=== PATIENT | female | born 1990 | race Caucasian/White ===

== ENCOUNTER 2016-08-10 12:58 | Emergency (ER) | payer OTHER ==
[~2016-08-10 12:58] MED LIST: ACET50TA PO; DOCU10CA PO; IBUP80TA PO; VITAPRTA PO
--- NOTE | 2016-08-10 14:29 | EDDOCDS ---
Nurse's Notes [facility] Name: Leslie Savage Age: 25 yrs Sex: Female : 1990 Arrival Date: 08/10/2016 Time: 12:58 Bed PR1 / 25 Private MD: Harman Beckford Diagnosis: Acute upper respiratory infection, unspecified Presentation: 08/10 13:05 Presenting complaint: Patient states: states sore throat and cough x 3 weeks. Risk ml6 factors: Stridor is not present. Drooling is not present. Shortness of breath is not present. Cellulitis is not present. Adult Sepsis Screening: The patient does not have new or worsening altered mentation. Patient's respiratory rate is less than 22. Systolic blood pressure is greater than 100. Patient has a qSOFA score of 0- Negative Sepsis Screen. Suicide/Homicide risk assessment- the patient denies having any suicidal and/or homicidal ideations and does not present with any other emotional, behavioral or mental health complaints. Status: Patient is not a director of rehabilitative services or dependent. Transition of care: patient was not received from another setting of care. 13:05 Acuity: ALONSO Level 5 ml6 13:05 Method Of Arrival: Walkin/Carried/Asstd ml6 Triage Assessment: 13:06 General: Appears in no apparent distress, Behavior is appropriate for age, cooperative. ml6 Pain: Location: neck Pain currently is 4 out of 10 on a pain scale. HIV screening NA for this visit Offered previously. EENT: Throat is reddened has enlarged tonsils bilaterally with gag reflex present. Cardiovascular: No deficits noted. 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 trazodone 150 mg Oral tab HS (Last dose: 08/09/2016 20:00) 2. naproxen sodium 375 mg Oral TM24 2 tabs once daily (Last dose: 08/10/2016 08:00) 3. Ventolin Rotahaler/Rotacaps 200 mcg Inhl CpDv 200 mcg daily (Last dose: 08/10/2016 08:00) - PMHx: Anxiety; Asthma; Depression; lower back pain; - PSHx: none; - Social history: Smoking status: Patient uses tobacco products, heavy tobacco smoker. No barriers to communication noted, Speaks appropriately for age. - Family history: Not pertinent. - : The pt / caregiver states he / she is not on anticoagulants. Home medication list is obtained from the patient. - Exposure Risk Screening:: None identified. Screenin:27 Screening information is obtained from the patient. Fall risk: No risks identified. js13 Assistance ADL's: requires no assistance with activities of daily living. Abuse/DV Screen: The patient / caregiver reports he/she is: not in a situation that causes fear, pain or injury. Nutritional screening: No deficits noted. Advance Directives: There is no active DNR order. home support is adequate. Assessment: 14:22 General: Appears in no apparent distress, Behavior is appropriate for age, cooperative. js13 Pain: Denies pain. Neurological: Level of Consciousness is awake, alert. Respiratory: Airway is patent Respiratory effort is even, unlabored, Respiratory pattern is regular, symmetrical. Derm: Skin is pink, warm & dry. Vital Signs: 13:00 BP 136 / 79; Pulse 101; Resp 18 S; Temp 97.8(O); Pulse Ox 97% on R/A; Weight 127.01 kg gr2 (R); Height 5 ft. 6 in. (167.64 cm) (R); Pain 8/10; 14:26 BP 178 / 89; Pulse 107; Resp 20; Temp 98.2; Pulse Ox 99% ; Pain 8/10; jam1 13:00 Body Mass Index 45.19 (127.01 kg, 167.64 cm) gr2 Vitals: 13:00 Log In Time: August 10, 2016 at 13:00. gr2 13:26 Strep Screen is obtained and tested: Negative, a GATSNEG culture is ordered in [facility] js13 and sent. ED Course: 12:59 Patient visited by Marleny Crouch. gr2 12:59 Patient moved to Waiting gr2 13:00 Harman Beckford is Private Physician. gr2 13:02 Patient visited by Marleny Crouch. gr2 13:02 Patient moved to Pre RCE gr2 13:05 Triage Initiated ml6 13:22 Patient moved to Triage 1 js13 13:27 The patient / caregiver is instructed regarding the plan of care and ED course. js13 13:27 No IV's were initiated during this patient's visit. No procedures done that require js13 assistance. 13:29 [facility]. dt4 13:29 Ti Aguilera MD is Attending Physician. dt4 13:29 Patient visited by Shanita Hernandez PA-C. dt4 13:29 GATS (NEGATIVE STREP SCREEN) Sent. js13 13:43 Patient moved to TR1 jam1 14:22 Patient moved to PR1 / 25 jam1 Order Results: There are currently no results for this order. Outcome: 14:18 Discharge ordered by Provider. dt4 14:22 Discharge Assessment: Patient awake, alert and oriented x 3. No cognitive and/or js13 functional deficits noted. Patient verbalized understanding of disposition instructions. patient administered narcotics - no. The following High Risk Discharge criteria are identified: None. Discharged to home ambulatory. Condition: improved. Discharge instructions given to patient, Instructed on discharge instructions, follow up and referral plans. medication usage, Demonstrated understanding of instructions, medications, Pt was receptive of discharge instructions/ teaching. No special radiology studies were completed. Property :Personal belongings accompany Pt. 14:23 Prescriptions given X 2. js13 14:29 Patient left the ED. js13 Signatures: Janet Robbins, HYDROBLASTER HYDROBLASTER jam1 Ketan Rubio, RN RN ml6 Amada JoynerRN RN js13 Marleny Crouch gr2 Shanita Hernandez PA-C PA-C dt4 [facility]
--- NOTE | 2016-08-10 14:29 | EDDOCDS ---
Physician Documentation [facility] Name: Leslie Savage Age: 25 yrs Sex: Female : 1990 Arrival Date: 08/10/2016 Time: 12:58 Bed PR1 / Private MD: Harman Beckford Disposition: 08/10/16 14:18 Discharged to Home/Self Care. Impression: Acute upper respiratory infection, unspecified. - Condition is Stable. - Discharge Instructions: Upper Respiratory Infection, Adult, Cough, Adult. - Prescriptions for Zithromax Z- Ti 250 mg Oral Tablet - take 1 tablet by ORAL route as directed for 5 days Day 1- take two tablets once. Day 2, 3, 4 , 5 take one tablet once daily.; 6 tablet. benzonatate 200 mg Oral Capsule - take 1 capsule by ORAL route 3 times per day As needed; 30 capsule. magic mouthwash Mucous Membrane Solution - as directed 5 milliliters by ORAL route 3-4 times daily As needed gargle, swish, spit. Maalox, Liquid Benadryl, Viscous Lidocaine. 1:1:1; 237 milliliter. - Medication Reconciliation, Local Pharmacy Hours form. - Follow up: Emergency Department; When: As needed; Reason: Worsening of conditions. Follow up: Private Physician; When: 2 - 3 days; Reason: Wound/Symptom Recheck, Recheck today's complaints, Continuance of care. - Problem is new. - Symptoms are unchanged. Historical: - Allergies: PENICILLINS (Rash); - Home Meds: 1. trazodone 150 mg Oral tab HS (Last dose: 08/09/2016 20:00) 2. naproxen sodium 375 mg Oral TM24 2 tabs once daily (Last dose: 08/10/2016 08:00) 3. Ventolin Rotahaler/Rotacaps 200 mcg Inhl CpDv 200 mcg daily (Last dose: 08/10/2016 08:00) - PMHx: Anxiety; Asthma; Depression; lower back pain; - PSHx: none; - Social history: Smoking status: Patient uses tobacco products, heavy tobacco smoker. No barriers to communication noted, Speaks appropriately for age. - Family history: Not pertinent. - : The pt / caregiver states he / she is not on anticoagulants. Home medication list is obtained from the patient. - Exposure Risk Screening:: None identified. 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 6 in. (167.64 cm) (R); Pain 8/10; 14:26 BP 178 / 89; Pulse 107; Resp 20; Temp 98.2; Pulse Ox 99% ; Pain 8/10; jam1 13:00 Body Mass Index 45.19 (127.01 kg, 167.64 cm) gr2 MDM: 13:03 Strep Screen, Nursing ordered. dt4 13:27 GATS (NEGATIVE STREP SCREEN) Ordered. EDMS 13:42 Chest, 2 View (pa\E\lat) Ordered. EDMS 13:47 Financial registration complete. lg Signatures: Dispatcher [employer] EDMS Shannon Hernandez, Reg Reg lg Ketan Rubio, RN RN ml6 Amada Joyner,RN RN js13 Shanita Hernandez, PAJenniferC PA-C dt4 [facility]
--- NOTE | 2016-08-10 15:50 | REP ---
Chest x-ray: Two views. History: Cough. Comparison chest x-ray April 08, 2013. Findings: The lungs are symmetrically aerated and clear. Pleural angles are sharp. Heart size is normal. Pulmonary vasculature is not increased. Intraoral jewelry is noted incidentally. Impression: No active disease. Signed by Eros Khoury MD 08/10/2016 04:03 P
--- NOTE | 2016-08-12 15:29 | EDDOCDS ---
Physician Documentation [facility] Name: Leslie Savage Age: 25 yrs Sex: Female : 1990 Arrival Date: 08/10/2016 Time: 12:58 Bed PR1 / Private MD: Harman Beckford Disposition: 08/10/16 14:18 Discharged to Home/Self Care. Impression: Acute upper respiratory infection, unspecified. - Condition is Stable. - Discharge Instructions: Upper Respiratory Infection, Adult, Cough, Adult. - Prescriptions for Zithromax Z- Ti 250 mg Oral Tablet - take 1 tablet by ORAL route as directed for 5 days Day 1- take two tablets once. Day 2, 3, 4 , 5 take one tablet once daily.; 6 tablet. benzonatate 200 mg Oral Capsule - take 1 capsule by ORAL route 3 times per day As needed; 30 capsule. magic mouthwash Mucous Membrane Solution - as directed 5 milliliters by ORAL route 3-4 times daily As needed gargle, swish, spit. Maalox, Liquid Benadryl, Viscous Lidocaine. 1:1:1; 237 milliliter. - Medication Reconciliation, Local Pharmacy Hours form. - Follow up: Emergency Department; When: As needed; Reason: Worsening of conditions. Follow up: Private Physician; When: 2 - 3 days; Reason: Wound/Symptom Recheck, Recheck today's complaints, Continuance of care. - Problem is new. - Symptoms are unchanged. Historical: - Allergies: PENICILLINS (Rash); - Home Meds: 1. trazodone 150 mg Oral tab HS (Last dose: 08/09/2016 20:00) 2. naproxen sodium 375 mg Oral TM24 2 tabs once daily (Last dose: 08/10/2016 08:00) 3. Ventolin Rotahaler/Rotacaps 200 mcg Inhl CpDv 200 mcg daily (Last dose: 08/10/2016 08:00) - PMHx: Anxiety; Asthma; Depression; lower back pain; - PSHx: none; - Social history: Smoking status: Patient uses tobacco products, heavy tobacco smoker. No barriers to communication noted, Speaks appropriately for age. - Family history: Not pertinent. - : The pt / caregiver states he / she is not on anticoagulants. Home medication list is obtained from the patient. - Exposure Risk Screening:: None identified. 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 6 in. (167.64 cm) (R); Pain 8/10; 14:26 BP 178 / 89; Pulse 107; Resp 20; Temp 98.2; Pulse Ox 99% ; Pain 8/10; jam1 13:00 Body Mass Index 45.19 (127.01 kg, 167.64 cm) gr2 MDM: 13:03 Strep Screen, Nursing ordered. dt4 13:27 GATS (NEGATIVE STREP SCREEN) Ordered. EDMS 13:42 Chest, 2 View (pa\E\lat) Ordered. EDMS 13:47 Financial registration complete. lg 14:41 [facility] Payment Agreement was scanned into [employer] and attached to record. lg 22:02 T-Sheet-- Draft Copy was scanned into [employer] and attached to record. klr Signatures: Dispatcher [employer] EDMS Shannon Hernandez, Reg Reg lg Ketan Rubio, RN RN ml6 Amada Joyner,RN RN js13 Shanita Hernandez, PA-C PA-C dt4 Hali Carmen klr The chart was reviewed and I authenticate all verbal orders and agree with the evaluation and treatment provided.Attachments: 14:41 [facility] Payment Agreement lg 22:02 T-Sheet-- Draft Copy klr Chart Complete MTDD
--- NOTE | 2016-08-12 15:30 | EDDOCDS ---
Physician Documentation [facility] Name: Leslie Savage Age: 25 yrs Sex: Female : 1990 Arrival Date: 08/10/2016 Time: 12:58 Bed PR1 / Private MD: Harman Beckford Disposition: 08/10/16 14:18 Discharged to Home/Self Care. Impression: Acute upper respiratory infection, unspecified. - Condition is Stable. - Discharge Instructions: Upper Respiratory Infection, Adult, Cough, Adult. - Prescriptions for Zithromax Z- Ti 250 mg Oral Tablet - take 1 tablet by ORAL route as directed for 5 days Day 1- take two tablets once. Day 2, 3, 4 , 5 take one tablet once daily.; 6 tablet. benzonatate 200 mg Oral Capsule - take 1 capsule by ORAL route 3 times per day As needed; 30 capsule. magic mouthwash Mucous Membrane Solution - as directed 5 milliliters by ORAL route 3-4 times daily As needed gargle, swish, spit. Maalox, Liquid Benadryl, Viscous Lidocaine. 1:1:1; 237 milliliter. - Medication Reconciliation, Local Pharmacy Hours form. - Follow up: Emergency Department; When: As needed; Reason: Worsening of conditions. Follow up: Private Physician; When: 2 - 3 days; Reason: Wound/Symptom Recheck, Recheck today's complaints, Continuance of care. - Problem is new. - Symptoms are unchanged. Historical: - Allergies: PENICILLINS (Rash); - Home Meds: 1. trazodone 150 mg Oral tab HS (Last dose: 08/09/2016 20:00) 2. naproxen sodium 375 mg Oral TM24 2 tabs once daily (Last dose: 08/10/2016 08:00) 3. Ventolin Rotahaler/Rotacaps 200 mcg Inhl CpDv 200 mcg daily (Last dose: 08/10/2016 08:00) - PMHx: Anxiety; Asthma; Depression; lower back pain; - PSHx: none; - Social history: Smoking status: Patient uses tobacco products, heavy tobacco smoker. No barriers to communication noted, Speaks appropriately for age. - Family history: Not pertinent. - : The pt / caregiver states he / she is not on anticoagulants. Home medication list is obtained from the patient. - Exposure Risk Screening:: None identified. 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 6 in. (167.64 cm) (R); Pain 8/10; 14:26 BP 178 / 89; Pulse 107; Resp 20; Temp 98.2; Pulse Ox 99% ; Pain 8/10; jam1 13:00 Body Mass Index 45.19 (127.01 kg, 167.64 cm) gr2 MDM: 13:03 Strep Screen, Nursing ordered. dt4 13:27 GATS (NEGATIVE STREP SCREEN) Ordered. EDMS 13:42 Chest, 2 View (pa\E\lat) Ordered. EDMS 13:47 Financial registration complete. lg 14:41 [facility] Payment Agreement was scanned into [employer] and attached to record. lg 22:02 T-Sheet-- Draft Copy was scanned into [employer] and attached to record. klr Signatures: Dispatcher [employer] EDMS Shannon Hernandez, Reg Reg lg Ketan Rubio, RN RN ml6 Amada Joyner,RN RN js13 Shanita Hernandez, PA-C PA-C dt4 Hali Carmen klr The chart was reviewed and I authenticate all verbal orders and agree with the evaluation and treatment provided.Attachments: 14:41 [facility] Payment Agreement lg 22:02 T-Sheet-- Draft Copy klr Chart Complete MTDD
--- NOTE | 2016-08-12 15:30 | EDDOCDS ---
Nurse's Notes [facility] Name: Leslie Savage Age: 25 yrs Sex: Female : 1990 Arrival Date: 08/10/2016 Time: 12:58 Bed PR1 / 25 Private MD: Harman Beckford Diagnosis: Acute upper respiratory infection, unspecified Presentation: 08/10 13:05 Presenting complaint: Patient states: states sore throat and cough x 3 weeks. Risk ml6 factors: Stridor is not present. Drooling is not present. Shortness of breath is not present. Cellulitis is not present. Adult Sepsis Screening: The patient does not have new or worsening altered mentation. Patient's respiratory rate is less than 22. Systolic blood pressure is greater than 100. Patient has a qSOFA score of 0- Negative Sepsis Screen. Suicide/Homicide risk assessment- the patient denies having any suicidal and/or homicidal ideations and does not present with any other emotional, behavioral or mental health complaints. Status: Patient is not a financial services technician or dependent. Transition of care: patient was not received from another setting of care. 13:05 Acuity: ALONSO Level 5 ml6 13:05 Method Of Arrival: Walkin/Carried/Asstd ml6 Triage Assessment: 13:06 General: Appears in no apparent distress, Behavior is appropriate for age, cooperative. ml6 Pain: Location: neck Pain currently is 4 out of 10 on a pain scale. HIV screening NA for this visit Offered previously. EENT: Throat is reddened has enlarged tonsils bilaterally with gag reflex present. Cardiovascular: No deficits noted. 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 trazodone 150 mg Oral tab HS (Last dose: 08/09/2016 20:00) 2. naproxen sodium 375 mg Oral TM24 2 tabs once daily (Last dose: 08/10/2016 08:00) 3. Ventolin Rotahaler/Rotacaps 200 mcg Inhl CpDv 200 mcg daily (Last dose: 08/10/2016 08:00) - PMHx: Anxiety; Asthma; Depression; lower back pain; - PSHx: none; - Social history: Smoking status: Patient uses tobacco products, heavy tobacco smoker. No barriers to communication noted, Speaks appropriately for age. - Family history: Not pertinent. - : The pt / caregiver states he / she is not on anticoagulants. Home medication list is obtained from the patient. - Exposure Risk Screening:: None identified. Screenin:27 Screening information is obtained from the patient. Fall risk: No risks identified. js13 Assistance ADL's: requires no assistance with activities of daily living. Abuse/DV Screen: The patient / caregiver reports he/she is: not in a situation that causes fear, pain or injury. Nutritional screening: No deficits noted. Advance Directives: There is no active DNR order. home support is adequate. Assessment: 14:22 General: Appears in no apparent distress, Behavior is appropriate for age, cooperative. js13 Pain: Denies pain. Neurological: Level of Consciousness is awake, alert. Respiratory: Airway is patent Respiratory effort is even, unlabored, Respiratory pattern is regular, symmetrical. Derm: Skin is pink, warm & dry. Vital Signs: 13:00 BP 136 / 79; Pulse 101; Resp 18 S; Temp 97.8(O); Pulse Ox 97% on R/A; Weight 127.01 kg gr2 (R); Height 5 ft. 6 in. (167.64 cm) (R); Pain 8/10; 14:26 BP 178 / 89; Pulse 107; Resp 20; Temp 98.2; Pulse Ox 99% ; Pain 8/10; jam1 13:00 Body Mass Index 45.19 (127.01 kg, 167.64 cm) gr2 Vitals: 13:00 Log In Time: August 10, 2016 at 13:00. gr2 13:26 Strep Screen is obtained and tested: Negative, a GATSNEG culture is ordered in [facility] js13 and sent. ED Course: 12:59 Patient visited by Marleny Crouch. gr2 12:59 Patient moved to Waiting gr2 13:00 Harman Beckford is Private Physician. gr2 13:02 Patient visited by Marleny Crouch. gr2 13:02 Patient moved to Pre RCE gr2 13:05 Triage Initiated ml6 13:22 Patient moved to Triage 1 js13 13:27 The patient / caregiver is instructed regarding the plan of care and ED course. js13 13:27 No IV's were initiated during this patient's visit. No procedures done that require js13 assistance. 13:29 Shanita Hernandez [facility]C [facility]. dt4 13:29 Ti Aguilera MD is Attending Physician. dt4 13:29 Patient visited by Shanita Hernandez PA-C. dt4 13:29 GATS (NEGATIVE STREP SCREEN) Sent. js13 13:43 Patient moved to TR1 jam1 14:22 Patient moved to PR [facility] 14:41 [facility] Payment Agreement was scanned into [employer] and attached to record. lg 16:21 Chest, 2 View (pa\E\lat) Returned. EDMS 22:02 T-Sheet-- Draft Copy was scanned into [employer] and attached to record. klr Order Results: Lab Order: GATS (NEGATIVE STREP SCREEN); SPEC'M 08/10/16 13:30 Test: GATS CULTURE (NEG STREP SCR); Value: GATS RESULT NEGATIVE FOR STREP PYOGENES (GROUP A); Status: F Test: GATS CULTURE (NEG STREP SCR); Value: ORGANISM 1: STREPTOCOCCUS GROUP C; Status: F Test: GATS CULTURE (NEG STREP SCR); Value: STREPTOCOCCUS GROUP C; Status: F Test: GATS CULTURE (NEG STREP SCR); Value: QUANTITY OF GROWTH MODERATE; Status: F Radiology Order: Chest, 2 View (pa\E\lat) Test: Chest, 2 View (pa\E\lat) REASON FOR EXAMINATION: Cough; Chest x-ray: Two views.; ; History: Cough.; ; Comparison chest x-ray April 08, 2013.; ; Findings: The lungs are symmetrically aerated and clear. Pleural angles are; sharp. Heart size is normal. Pulmonary vasculature is not increased. Intraoral; jewelry is noted incidentally.; ; Impression:; ; No active disease.; ; ; Signed by; Eros Khoury MD 08/10/2016 04:03 P; Outcome: 14:18 Discharge ordered by Provider. dt4 14:22 Discharge Assessment: Patient awake, alert and oriented x 3. No cognitive and/or js13 functional deficits noted. Patient verbalized understanding of disposition instructions. patient administered narcotics - no. The following High Risk Discharge criteria are identified: None. Discharged to home ambulatory. Condition: improved. Discharge instructions given to patient, Instructed on discharge instructions, follow up and referral plans. medication usage, Demonstrated understanding of instructions, medications, Pt was receptive of discharge instructions/ teaching. No special radiology studies were completed. Property :Personal belongings accompany Pt. 14:23 Prescriptions given X 2. js13 14:29 Patient left the ED. js13 Signatures: Dispatcher [employer] EDMS Janet Robbins, EXECUTIVE STAFF ASSISTANT EXECUTIVE STAFF ASSISTANT jam1 Shannon Hernandez, Reg Reg lg Ketan Rubio RN RN ml6 Amada Joyner RN RN js13 Marleny Crouch gr2 Shanita Hernandez, GARY PAZena [email or web address] Hali Carmen Chart Complete MTDD
== END 2016-08-10 14:29 | disposition home or self-care (01) ==
LOC: M ED 12:58
DX: J06.9 Acute upper respiratory infection, unspecified (principal); R05 Cough; J45.909 Unspecified asthma, uncomplicated; F41.9 Anxiety disorder, unspecified; M54.5 Low back pain; Z72.0 Tobacco use; Z79.1 Long term (current) use of non-steroidal anti-inflammatories (NSAID); Z79.51 Long term (current) use of inhaled steroids; Z79.899 Other long term (current) drug therapy; Z88.0 Allergy status to penicillin

== ENCOUNTER 2016-10-29 23:58 | Emergency (ER) | payer OTHER ==
[2016-10-30 02:34] VITALS: BP 156/103
== END 2016-10-30 03:05 | disposition left against medical advice (07) ==
LOC: M ED 10-30 01:45
DX: S99.929A Unspecified injury of unspecified foot, initial encounter (principal); Z53.21 Procedure and treatment not carried out due to patient leaving prior to being seen by health care provider

== ENCOUNTER 2016-11-09 18:44 | Emergency (ER) | payer OTHER ==
[~2016-11-09] VITALS: Ht 167.6 cm; Wt 129.3 kg
[2016-11-09] MEDS ORDERED: TRAZ150T14 PO (18:55)
[2016-11-09] MEDS ORDERED: BACTRIM 160MG/800MG DS TAB PO ONE (23:45)
[2016-11-09] MEDS ORDERED: KETOROLAC 60 MG/2 ML VIAL (J1885) IM ONE (23:45)
[2016-11-09] MEDS ORDERED: NAPR500T PO (23:47)
[2016-11-09] MEDS ORDERED: BACT800T5 PO (23:47)
[2016-11-09] MEDS ORDERED: KETOROLAC 30 MG/ML VIAL (J1885) As Ordered ONE (23:56)
[2016-11-10 00:27] VITALS: BP 179/85
== END 2016-11-10 00:29 | disposition home or self-care (01) ==
LOC: M ED 19:40
DX: L03.316 Cellulitis of umbilicus (principal); Z79.899 Other long term (current) drug therapy; Z88.0 Allergy status to penicillin; F17.210 Nicotine dependence, cigarettes, uncomplicated
CPT/HCPCS: 96372; 99282; J1885

== ENCOUNTER → 2016-12-17 | Outpatient (REF) | payer OTHER ==
[~2016-12-17] MED LIST changes: +BACT800T5 PO; +NAPR500T PO; +TRAZ150T14 PO
== END ==
LOC: M LAB REF 19:45
PROVIDERS: ATTEND Physician Assistant
DX: J02.9 Acute pharyngitis, unspecified (principal)

== ENCOUNTER → 2017-01-06 | Outpatient (CLI) | payer OTHER ==
[2017-01-06 16:34] LABS: FREE T4 1.18 NG/DL (0.76-1.46)
== END ==
LOC: M LAB 15:08
PROVIDERS: ATTEND Internal Medicine Gastroenterology
DX: K62.5 Hemorrhage of anus and rectum (principal)

== ENCOUNTER → 2017-01-15 | Outpatient (REF) | payer OTHER | LOC: M LAB REF 15:27 | PROVIDERS: ATTEND Internal Medicine Gastroenterology | DX: K62.5 Hemorrhage of anus and rectum (principal) ==

== ENCOUNTER → 2017-01-21 | Outpatient (CLI) | payer OTHER ==
[~2017-01-21] MED LIST changes: +E-Z-PAQUE 96% w/w SUSP 176GM BTL As Ordered ONE
--- NOTE | 2017-01-21 16:41 | REP ---
SMALL BOWEL FOLLOW THROUGH: The procedure was performed under the direct supervision of Dr. Comer. The images were reviewed with Dr. Comer. The automatic teller machine servicer film shows no organomegaly or pathological masses. The intestinal gas pattern is nonspecific. Liquid barium was administered and the barium column was followed through the small bowel to the level of the terminal ileum. Small bowel transit time is approximately 1 hour. During fluoroscopy gentle palpation shows all loops are freely movable and pliable. There are no fixed or angulated loops. The small bowel mucosal pattern is normal in course and caliber. There is no transition to suggest a partial small bowel obstruction. Spot filming of terminal ileum shows it to be unremarkable. IMPRESSION: Unremarkable small bowel follow-through examination. 1 minutes and 26 seconds of fluoroscopy time was utilized for this procedure. Reviewed by SHYLA Chan 01/21/2017 04:48 PEdited and Signed by Joesph Comer MD 01/22/2017 05:17 P
== END ==
LOC: M RAD 08:28
PROVIDERS: ATTEND Internal Medicine Gastroenterology
DX: K58.0 Irritable bowel syndrome with diarrhea (principal); K62.5 Hemorrhage of anus and rectum

== ENCOUNTER → 2017-02-18 | Outpatient (REF) | payer OTHER ==
[~2017-02-18] MED LIST changes: -E-Z-PAQUE 96% w/w SUSP 176GM BTL As Ordered ONE; +MELA3TAB49 PO; -TRAZ150T14 PO; +TRAZ1TAB14 PO
== END ==
LOC: M LAB REF 14:55
PROVIDERS: ATTEND Nurse Practitioner Family
DX: Z01.818 Encounter for other preprocedural examination (principal)

== ENCOUNTER → 2017-03-02 | Day surgery (SDC) | payer OTHER ==
[~2017-03-02] VITALS: Ht 167.6 cm; Wt 165.6 kg
[~2017-03-02] MED LIST changes: +LIDOCAINE 2% INJ 100 MG/5 ML SDV (FOR ANES.) As Ordered ONE; +LR 1,000 ML IV ONE; +PROPOFOL 200 MG/20 ML VIAL As Ordered ONE
[2017-03-02 10:45] LABS: CONTROL LINE UCG INT CTR LINE PRESENT
--- NOTE | 2017-03-02 11:26 | ROOR ---
Patient Name: Leslie Goldstein Procedure Date: 03/02/2017 10:49 AM Date of : 1990 Age: 26 Gender: Female Note Status: Finalized Procedure: Upper GI endoscopy Indications: Epigastric abdominal pain Providers: Lance VALENTINE MD Referring MD: Harman ERNIQUE MD Requesting Provider: Medicines: Monitored Anesthesia Care Complications: No immediate complications. Procedure: Pre-Anesthesia Assessment: - The heart rate, respiratory rate, oxygen saturations, blood pressure, adequacy of pulmonary ventilation, and response to care were monitored throughout the procedure. The Endoscope was introduced through the mouth, and advanced to the second part of duodenum. The upper GI endoscopy was accomplished without difficulty. The patient tolerated the procedure well. Findings: Non-severe esophagitis was found at the gastroesophageal junction. Biopsies were taken with a cold forceps for histology. Very small (insignificant) Hiatal Hernia. The exam was otherwise without abnormality. Impression: - Mild reflux esophagitis. Biopsied. - Very small (insignificant) Hiatal Hernia. - The examination was otherwise normal. Recommendation: - Use Prilosec (omeprazole) 40 mg PO daily for 3 months. - Follow an antireflux regimen. Lance Valentine MD Lance VALENTINE MD 03/02/2017 11:25:55 AM This report has been signed electronically. Number of Addenda: 0 Note Initiated On: 03/02/2017 10:49 AM Estimated Blood Loss: Estimated blood loss: none.
--- NOTE | 2017-03-02 11:34 | ROOR ---
Patient Name: Leslie Goldstein Procedure Date: 03/02/2017 10:48 AM Date of : 1990 Age: 26 Gender: Female Note Status: Finalized Procedure: Colonoscopy Indications: Hematochezia Providers: Lance VALENTINE MD Referring MD: Harman ENRIQUE MD Requesting Provider: Medicines: Monitored Anesthesia Care Complications: No immediate complications. Procedure: Pre-Anesthesia Assessment: - The heart rate, respiratory rate, oxygen saturations, blood pressure, adequacy of pulmonary ventilation, and response to care were monitored throughout the procedure. The Colonoscope was introduced through the anus and advanced to 6 cm into the ileum. The colonoscopy was performed without difficulty. The patient tolerated the procedure well. The quality of the bowel preparation was unsatisfactory. Findings: The perianal and digital rectal examinations were normal. Small Internal Hemorrhoids. The entire examined colon appeared normal on direct and retroflexion views. The terminal ileum appeared normal. Impression: - Preparation of the colon was noted for formed stool throughout consistent with constipation. - Small Internal Hemorrhoids. - The entire examined colon is normal on direct and retroflexion views. - The examined portion of the ileum was normal. - No specimens collected. Recommendation: - Miralax 1 capful (17 grams) in 8 ounces of water twice a day for constipation - (the script was sent to your pharmacy on file) Lance Valentine MD Lance VALENTINE MD 03/02/2017 11:34:09 AM This report has been signed electronically. Number of Addenda: 0 Note Initiated On: 03/02/2017 10:48 AM Estimated Blood Loss: Estimated blood loss: none.
[2017-03-02 11:45] VITALS: BP 137/70
== END | disposition home or self-care (01) ==
LOC: M SDC 09:37
PROVIDERS: ATTEND Internal Medicine Gastroenterology
DX: R10.13 Epigastric pain (principal); K21.0 Gastro-esophageal reflux disease with esophagitis; K92.1 Melena; E03.9 Hypothyroidism, unspecified; I10 Essential (primary) hypertension; J45.909 Unspecified asthma, uncomplicated; F17.210 Nicotine dependence, cigarettes, uncomplicated; F41.9 Anxiety disorder, unspecified; F32.9 Major depressive disorder, single episode, unspecified; Z91.040 Latex allergy status; Z88.0 Allergy status to penicillin

== ENCOUNTER → 2017-04-08 | Outpatient (REF) | payer OTHER ==
[~2017-04-08] MED LIST changes: -LIDOCAINE 2% INJ 100 MG/5 ML SDV (FOR ANES.) As Ordered ONE; -LR 1,000 ML IV ONE; -PROPOFOL 200 MG/20 ML VIAL As Ordered ONE
== END ==
LOC: M LAB REF 18:36
PROVIDERS: ATTEND Physician Assistant
DX: L03.316 Cellulitis of umbilicus (principal)

== ENCOUNTER → 2017-05-15 | Outpatient (CLI) | payer OTHER ==
--- NOTE | 2017-05-19 18:37 | SLEEPHOME ---
DATE OF PROCEDURE: 05/15/2017 REFERRING PHYSICIAN: Lorena Parisi Diagnostic home sleep testing was performed due to concern for the obstructive sleep apnea syndrome in this patient with a history of excessive somnolence and nonrestorative sleep. For testing a NOX-T3 respiratory monitoring device was used. Continuous record was made of pulse, oxygen saturation, air flow, chest and abdominal strain and body position. 10 hours and 59 minutes of data were reviewed. Of these, 6 hours and 14 minutes were marked as time in bed. During the interval marked time in bed there were 15 respiratory events identified of 10 seconds in duration or greater for a respiratory event index of 2.4. The events were both obstructive, mixed and central. The patients baseline pulse rate was 79 beats per minute. Pulse rate range 58 to 111. Baseline oxygen saturation was 92%. Respiratory events were associated with oxygen desaturations as low as 85%. Testing was performed in both the supine and non-supine positions. IMPRESSION: Abnormal home sleep testing with repetitive respiratory events and oxygen desaturations to 85% is consistent with the obstructive sleep apnea syndrome. RECOMMENDATIONS: The patients respiratory disturbance index was low however given finding on history and physical examination symptoms and the occurrence of oxygen desaturation, referral for formal sleep evaluation and possible in laboratory pressure titration should be considered.
== END ==
LOC: M SLEEP HO 12:32
PROVIDERS: ATTEND Nurse Practitioner Adult Health
DX: G47.33 Obstructive sleep apnea (adult) (pediatric) (principal)

== ENCOUNTER → 2017-06-15 | Outpatient (REF) | payer OTHER | LOC: M LAB REF 09:56 | PROVIDERS: ATTEND Physician Assistant | DX: R30.0 Dysuria (principal) ==

== ENCOUNTER 2017-08-05 22:22 | Emergency (ER) | payer OTHER ==
[2017-08-06] MEDS: NORCO 5/325MG TABLET (BULK FOR ED) PO (01:09)
== END 2017-08-06 01:13 | disposition home or self-care (01) ==
LOC: M ED 22:22
DX: S92.511A Displaced fracture of proximal phalanx of right lesser toe(s), initial encounter for closed fracture (principal); W22.09XA Striking against other stationary object, initial encounter; Y92.098 Other place in other non-institutional residence as the place of occurrence of the external cause; Y93.89 Activity, other specified; Y99.8 Other external cause status; E03.9 Hypothyroidism, unspecified; J45.909 Unspecified asthma, uncomplicated; F41.9 Anxiety disorder, unspecified; Z87.891 Personal history of nicotine dependence; Z88.0 Allergy status to penicillin; Z91.040 Latex allergy status; Z91.048 Other nonmedicinal substance allergy status; Z79.899 Other long term (current) drug therapy
CPT/HCPCS: 73630

== ENCOUNTER 2017-10-03 23:02 | Emergency (ER) | payer OTHER ==
[2017-10-04] MEDS: NORCO, ANEXSIA 5/325MG TABLET (HYDROcodone/ACETAMINOPHEN) PO (00:09)
== END 2017-10-04 00:15 | disposition home or self-care (01) ==
LOC: M ED 10-04 00:15
DX: S80.12XA Contusion of left lower leg, initial encounter (principal); W10.9XXA Fall (on) (from) unspecified stairs and steps, initial encounter; Y92.099 Unspecified place in other non-institutional residence as the place of occurrence of the external cause; Y93.9 Activity, unspecified; Z79.899 Other long term (current) drug therapy; Z91.040 Latex allergy status; Z91.89 Other specified personal risk factors, not elsewhere classified; Z88.0 Allergy status to penicillin
CPT/HCPCS: 73590

== ENCOUNTER 2018-03-14 17:45 | Emergency (ER) | payer MEDICAID, SELFPAY, OTHER ==
[2018-03-14] MEDS: NORCO 5/325MG TABLET (BULK FOR ED) PO ×2 (20:29)
== END 2018-03-14 20:39 | disposition home or self-care (01) ==
LOC: M ED 17:45
DX: S89.91XA Unspecified injury of right lower leg, initial encounter (principal); Y93.9 Activity, unspecified; Y92.019 Unspecified place in single-family (private) house as the place of occurrence of the external cause
CPT/HCPCS: 73564

== ENCOUNTER 2018-07-08 21:05 | Inpatient (IN) | payer MEDICAID ==
[2018-07-08 20:02] LABS: HEMATOCRIT 44.6 % (36.0-47.0); HEMOGLOBIN 15.1 g/dl (12.0-15.5); MEAN CORPUSCULAR HEMOGLOBIN 30.3 pg (27.0-33.0); MEAN CORPUSCULAR HGB CONC 33.9 g/dl (32.0-36.5); MEAN CORPUSCULAR VOLUME 89.4 fl (80.0-96.0); PLATELET COUNT, AUTOMATED 344 10^3/uL (150-450); RED BLOOD COUNT 4.99 10^6/uL (4.00-5.40); RED CELL DISTRIBUTION WIDTH 12.2 % (11.5-14.5); WHITE BLOOD COUNT 12.1 10^3/uL (4.0-10.0)
[2018-07-08 20:29] LABS: AMPHETAMINES LEVEL URINE NEGATIVE (NEGATIVE); BARBITURATES URINE NEGATIVE (NEGATIVE); BENZODIAZEPINES URINE NEGATIVE (NEGATIVE); CANNABINOIDS URINE NEGATIVE (NEGATIVE); COCAINE METABOLITE URINE NEGATIVE (NEGATIVE); METHADONE URINE NEGATIVE (NEGATIVE); OPIATES URINE NEGATIVE (NEGATIVE); PHENCYCLIDINE URINE NEGATIVE (NEGATIVE)
[2018-07-08 20:31] LABS: ACETAMINOPHEN LEVEL < 2.0 UG/ML (10.0-30.0); ALBUMIN 3.6 GM/DL (3.2-5.2); ALBUMIN/GLOBULIN RATIO 0.92 (1.00-1.93); ALKALINE PHOSPHATASE 131 U/L (45-117); ALT/SGPT 26 U/L (12-78); ANION GAP 9 MEQ/L (8-16); AST/SGOT 21 U/L (7-37); BILIRUBIN,DIRECT < 0.1 MG/DL (0.0-0.2); BILIRUBIN,TOTAL 0.2 MG/DL (0.2-1.0); BLOOD UREA NITROGEN 11 MG/DL (7-18); CALCIUM LEVEL 8.9 MG/DL (8.5-10.1); CARBON DIOXIDE LEVEL 23 MEQ/L (21-32); CHLORIDE LEVEL 111 MEQ/L (98-107); CREATININE FOR GFR 0.79 MG/DL (0.55-1.30); ETHYL ALCOHOL (ETHANOL) 0.004 % (0.000-0.010); GLOMERULAR FILTRATION RATE > 60.0 (>60); GLUCOSE, FASTING 96 MG/DL (70-100); POTASSIUM SERUM 4.2 MEQ/L (3.5-5.1); SALICYLATE LEVEL 4.2 MG/DL (5.0-30.0); SODIUM LEVEL 143 MEQ/L (136-145); THYROID STIMULATING HORMONE 0.605 uIU/ML (0.358-3.740); TOTAL PROTEIN 7.5 GM/DL (6.4-8.2)
[2018-07-08] MEDS: hydrOXYzine 25 MG TAB PO (22:18)
[2018-07-09] MEDS: diphenhydrAMINE 50 MG CAP PO (03:27)
[2018-07-09] MEDS ORDERED: MOM 30ML SUSPENSION UDC PO (14:15)
[2018-07-09] MEDS ORDERED: MAALOX 30 ML SUSP *UDC PO (14:15)
[2018-07-09] MEDS: traZODone 50 MG TAB PO (22:55)
[2018-07-10] MEDS: traZODone 50 MG TAB PO (02:21)
[2018-07-10] MEDS: LORazepam 1 MG TAB PO ×2 (02:22→20:39)
[2018-07-10] MEDS: VENLAFAXINE **XR** 37.5 MG CAPSULE PO (14:15)
[2018-07-10] MEDS: traZODone 100 MG TAB PO (23:06)
[2018-07-11] MEDS: ACETAMINOPHEN TAB 650MG DOSE (2X325MG) PO ×2 (08:39→16:17)
[2018-07-11] MEDS: VENLAFAXINE **XR** 37.5 MG CAPSULE PO (08:39)
[2018-07-11] MEDS: hydrOXYzine 25 MG TAB PO ×3 (08:40→23:19)
[2018-07-11] MEDS ORDERED: ALBUTEROL 90 MCG/ACT 8GM HFA INHALER INH (21:45)
[2018-07-11] MEDS: zolPIDEM TARTRATE 5 MG TAB PO (23:18)
[2018-07-12 07:26] LABS: HEMATOCRIT 42.1 % (36.0-47.0); HEMOGLOBIN 14.4 g/dl (12.0-15.5); MEAN CORPUSCULAR HEMOGLOBIN 30.9 pg (27.0-33.0); MEAN CORPUSCULAR HGB CONC 34.2 g/dl (32.0-36.5); MEAN CORPUSCULAR VOLUME 90.3 fl (80.0-96.0); PLATELET COUNT, AUTOMATED 329 10^3/uL (150-450); RED BLOOD COUNT 4.66 10^6/uL (4.00-5.40); RED CELL DISTRIBUTION WIDTH 12.1 % (11.5-14.5); WHITE BLOOD COUNT 10.1 10^3/uL (4.0-10.0)
[2018-07-12 07:29] LABS: ADD MANUAL DIFFER YES; DIFF SLIDE NUMBER 85; POSITIVE DIFF POS FLAG
[2018-07-12 08:12] LABS: EOSINOPHILS 4 % (0-5); LYMPHOCYTES 49 % (16-52); MONOCYTES 1 % (0-8); NEUTROPHILS 46 % (35-75)
[2018-07-12 08:13] LABS: PLATELET ESTIMATE NORMAL (NORMAL)
[2018-07-12] MEDS: ACETAMINOPHEN TAB 650MG DOSE (2X325MG) PO (08:21)
[2018-07-12] MEDS: hydrOXYzine 25 MG TAB PO ×3 (08:21→19:18)
[2018-07-12] MEDS: VENLAFAXINE **XR** 75MG CAPSULE PO (08:21)
[2018-07-12] MEDS: traZODone 100 MG TAB PO (22:47)
[2018-07-12] MEDS: zolPIDEM TARTRATE 5 MG TAB PO (22:47)
[2018-07-13] MEDS: hydrOXYzine 25 MG TAB PO (05:44)
[2018-07-13] MEDS: VENLAFAXINE **XR** 75MG CAPSULE PO (09:01)
== END 2018-07-13 15:42 | disposition home or self-care (01) | DRG 751 ==
LOC: M ED INP 07-09 14:12 → M ED 21:05 → M PSY 07-09 15:15
DX: F33.9 Major depressive disorder, recurrent, unspecified (principal); F43.10 Post-traumatic stress disorder, unspecified; F41.1 Generalized anxiety disorder; F42.9 Obsessive-compulsive disorder, unspecified; F41.0 Panic disorder [episodic paroxysmal anxiety]; G43.909 Migraine, unspecified, not intractable, without status migrainosus; M54.5 Low back pain; Z88.0 Allergy status to penicillin; R45.851 Suicidal ideations; G47.00 Insomnia, unspecified; F17.210 Nicotine dependence, cigarettes, uncomplicated; J45.909 Unspecified asthma, uncomplicated; Z79.899 Other long term (current) drug therapy

== ENCOUNTER → 2018-12-23 | Outpatient (REF) | payer MEDICAID ==
[~2018-12-23] MED LIST changes: -ACET50TA PO; +AMBI5TAB PO; +ESCI20TA; +HYDR-3363 PO; +HYDR-3715 PO; +HYDR50TA70; +MAPA500T2 PO; +NAPR-837 PO; -NAPR500T PO; +TRAZ10TA PO; +VENL75CA47 PO; +VENTAER; +VENTAER INH
== END ==
LOC: M LAB REF 09:23
PROVIDERS: ATTEND Physician Assistant
DX: N39.0 Urinary tract infection, site not specified (principal)

== ENCOUNTER 2019-01-02 22:20 | Emergency (ER) | payer MEDICAID, OTHER ==
[~2019-01-02] VITALS: Ht 167.6 cm; Wt 146.8 kg
[2019-01-03] MEDS ORDERED: PANTOPRAZOLE 40MG TAB (PROTONIX) PO ONE (00:30)
[2019-01-03] MEDS ORDERED: KETOROLAC 30 MG/ML VIAL (J1885) IM ONE (00:30)
[2019-01-03 00:54] VITALS: BP 135/89
== END 2019-01-03 01:05 | disposition home or self-care (01) ==
LOC: M ED 22:20
DX: M79.622 Pain in left upper arm (principal); Z79.3 Long term (current) use of hormonal contraceptives; J45.909 Unspecified asthma, uncomplicated; Z98.84 Bariatric surgery status
CPT/HCPCS: 99283; J1885

== ENCOUNTER → 2019-04-14 | Outpatient (REF) | payer OTHER ==
[2019-04-14 20:03] LABS: ALBUMIN 3.5 GM/DL (3.2-5.2); ALT/SGPT 23 U/L (12-78); BILIRUBIN,TOTAL 0.3 MG/DL (0.2-1.0); BLOOD UREA NITROGEN 10 MG/DL (7-18); CALCIUM LEVEL 9.3 MG/DL (8.5-10.1); CARBON DIOXIDE LEVEL 23 MEQ/L (21-32); CHLORIDE LEVEL 106 MEQ/L (98-107); CREATININE FOR GFR 0.89 MG/DL (0.55-1.30); FREE T4 0.95 NG/DL (0.76-1.46); GLOMERULAR FILTRATION RATE > 60.0 (>60); GLUCOSE, FASTING 173 MG/DL (70-100); SODIUM LEVEL 139 MEQ/L (136-145); TOTAL 25(OH) VITAMIN D 17.1 NG/ML (30.0-100.0); TOTAL PROTEIN 7.2 GM/DL (6.4-8.2)
== END ==
LOC: M LAB REF 19:26
PROVIDERS: ATTEND Nurse Practitioner Adult Health
DX: F32.9 Major depressive disorder, single episode, unspecified (principal)

== ENCOUNTER 2019-06-01 13:34 | Emergency (ER) | payer OTHER ==
[~2019-06-01] VITALS: Ht 167.6 cm; Wt 131.4 kg
[2019-06-01] MEDS ORDERED: MIRT1TAB15 PO (13:44)
[2019-06-01] MEDS ORDERED: SERT50TA29 PO (13:44)
[2019-06-01] MEDS ORDERED: ACET650T15 PO (13:44)
[2019-06-01] MEDS ORDERED: ALBUTEROL SULFATE 2.5 MG/0.5 ML INH NEB SOLN INH ONE (14:00)
[2019-06-01] MEDS ORDERED: methylPREDNISolone INJ 125 MG/2 ML VIAL (J2930) IV ONE (14:00)
[2019-06-01] MEDS ORDERED: IPRATROPIUM 0.5MG/ALBUTEROL 2.5MG INH SOL UD 3ML (DUONEB)(J7620) NEB ONE (14:00)
--- NOTE | 2019-06-01 14:18 | REP ---
Clinical: Cough and dyspnea . Comparison: 07/08/2018 . Findings: The mediastinum and cardiac silhouette are stable and within normal limits for portable technique. The lung da silva are clear without acute consolidation, effusion, or pneumothorax. Skeletal structures are intact. Impression: No acute cardiopulmonary process appreciated. Electronically Signed by Talon Dalal MD 06/01/2019 02:10 P
[2019-06-01 14:37] LABS: BLOOD UREA NITROGEN 15 MG/DL (7-18); CALCIUM LEVEL 8.8 MG/DL (8.5-10.1); CARBON DIOXIDE LEVEL 26 MEQ/L (21-32); CHLORIDE LEVEL 109 MEQ/L (98-107); GLOMERULAR FILTRATION RATE > 60.0 (>60); GLUCOSE, FASTING 97 MG/DL (70-100); POTASSIUM SERUM 4.6 MEQ/L (3.5-5.1); SODIUM LEVEL 141 MEQ/L (136-145)
[2019-06-01 16:41] LABS: BASO # 0.1 10^3/uL (0.0-0.2); BASO % 0.6 % (0.0-1.0); EOS # 0.5 10^3/uL (0.0-0.5); EOS % 4.2 % (0.0-3.0); HEMOGLOBIN 13.7 g/dl (12.0-15.5); LYMPH # 3.1 10^3/uL (1.5-5.0); LYMPH % 24.4 % (24.0-44.0); MEAN CORPUSCULAR HEMOGLOBIN 30.6 pg (27.0-33.0); MEAN CORPUSCULAR HGB CONC 32.6 g/dl (32.0-36.5); MEAN CORPUSCULAR VOLUME 93.8 fl (80.0-96.0); MONO # 0.7 10^3/uL (0.0-0.8); MONO % 5.4 % (0.0-5.0); NEUTROPHILS # 8.2 10^3/uL (1.5-8.5); NEUTROPHILS % 65.2 % (36.0-66.0); PLATELET COUNT, AUTOMATED 307 10^3/uL (150-450); RED BLOOD COUNT 4.48 10^6/uL (4.00-5.40); WHITE BLOOD COUNT 12.5 10^3/uL (4.0-10.0)
[2019-06-01] MEDS ORDERED: PRED20TA PO (17:08)
[2019-06-01] MEDS ORDERED: VENTAER INH (17:08)
[2019-06-01] MEDS ORDERED: AZIT-10 PO (17:08)
[2019-06-01 17:21] VITALS: BP 115/67
== END 2019-06-01 17:23 | disposition home or self-care (01) ==
LOC: M ED 13:34
DX: J45.901 Unspecified asthma with (acute) exacerbation (principal); G43.909 Migraine, unspecified, not intractable, without status migrainosus; Z98.84 Bariatric surgery status; Z79.899 Other long term (current) drug therapy; Z88.0 Allergy status to penicillin; Z91.030 Bee allergy status; Z91.040 Latex allergy status; Z91.048 Other nonmedicinal substance allergy status; F17.210 Nicotine dependence, cigarettes, uncomplicated
CPT/HCPCS: 71045; 80048; 85025; 87070; 87205; 87880; 93041; 94640; 94760; 96374; 99285; J2930

== ENCOUNTER 2019-09-03 18:46 | Emergency (ER) | payer OTHER ==
[~2019-09-03] VITALS: Ht 167.6 cm; Wt 144.6 kg
[~2019-09-03 18:46] MED LIST changes: +ACET650T15 PO; +AZIT-10 PO; +MIRT1TAB15 PO; +PRED20TA PO; +SERT50TA29 PO; -TRAZ10TA PO; +TRAZ1TAB12 PO
[2019-09-03] MEDS ORDERED: KETOROLAC 30 MG/ML VIAL (J1885) IV ONE (19:45)
[2019-09-03] MEDS ORDERED: ONDANSETRON 4MG/2ML VIAL (J2405) IV ONE (19:45)
[2019-09-03 20:23] LABS: BASO # 0.1 10^3/uL (0.0-0.2); BASO % 0.4 % (0.0-1.0); EOS # 0.3 10^3/uL (0.0-0.5); EOS % 2.3 % (0.0-3.0); HEMOGLOBIN 15.1 g/dl (12.0-15.5); LYMPH # 1.3 10^3/uL (1.5-5.0); LYMPH % 10.2 % (24.0-44.0); MEAN CORPUSCULAR HGB CONC 32.1 g/dl (32.0-36.5); MEAN CORPUSCULAR VOLUME 93.4 fl (80.0-96.0); MONO # 0.8 10^3/uL (0.0-0.8); MONO % 6.3 % (0.0-5.0); NEUTROPHILS % 80.3 % (36.0-66.0); PLATELET COUNT, AUTOMATED 323 10^3/uL (150-450); RED BLOOD COUNT 5.03 10^6/uL (4.00-5.40); WHITE BLOOD COUNT 12.5 10^3/uL (4.0-10.0)
--- NOTE | 2019-09-03 20:34 | REPVR ---
PROCEDURE INFORMATION: Exam: US Duplex Artery or Vein of the Abdominal and/or Reproductive Organs, Limited Ovaries Exam date and time: 09/03/2019 7:47 PM Age: 28 years old Clinical indication: Pelvic pain; Additional info: Pelvic pain/irreg menses TECHNIQUE: Imaging protocol: Real-time duplex ultrasound scan of the arterial or venous flow with palacios scale, color Doppler flow and spectral waveform analysis with image documentation. Limited duplex exam focused on the ovaries. Duplex images required to evaluate for torsion and other vascular conditions. COMPARISON: US PELVIC NON-OB COMPLETE 03/13/2014 6:35 PM FINDINGS: Right adnexa: Normal duplex ultrasound of the right ovary. No torsion. Left adnexa: Normal duplex ultrasound of the left ovary. No torsion. IMPRESSION: Normal duplex of the ovaries. No evidence for ovarian torsion. PROCEDURE INFORMATION: Exam: US Pelvis Complete, Transabdominal and US Pelvis, Transvaginal Exam date and time: 09/03/2019 7:47 PM Age: 28 years old Clinical indication: Pelvic pain; Additional info: Pelvic pain/irreg menses TECHNIQUE: Imaging protocol: Real-time transabdominal and transvaginal pelvic ultrasound (complete) with image documentation. Transvaginal imaging was used for better evaluation of the endometrium and adnexa. COMPARISON: US PELVIC NON-OB COMPLETE 03/13/2014 6:35 PM FINDINGS: Uterus/cervix: Uterus is normal, anteverted, and measures 7.3 cm x 3.7 cm x 4.1 cm. Endometrial stripe is normal and measures 4 mm in thickness. Right adnexa: Normal. No mass. Normal ovarian blood flow. The right ovary measures 2.2 cm x 1.7 cm x 2.3 cm. Left adnexa: Normal. No mass. Normal ovarian blood flow. The left ovary measures 2.9 cm x 1.4 cm x 2 cm. Free fluid: None. Bladder: Suboptimally distended for evaluation. IMPRESSION: Normal ultrasound of the uterus and ovaries. Electronically signed by: Mike Gibson On 09/03/2019 20:33:10 PM
[2019-09-03 20:39] LABS: BILIRUBIN, URINE MANUAL NEGATIVE (NEGATIVE); GLUCOSE, URINE (UA) MANUAL NEGATIVE (NEGATIVE); KETONE, URINE MANUAL NEGATIVE (NEGATIVE); UROBILINOGEN, URINE MANUAL NORMAL (NORMAL)
[2019-09-03 20:40] LABS: BACTERIA, URINE SMALL AMOUNT; HYALINE CAST, URINE NONE SEEN /lpf (0-1); MUCUS, URINE MOD AMOUNT (NEGATIVE); SQUAMOUS EPITHELIAL CELL URINE MOD AMOUNT /hpf (SMALL AMT)
[2019-09-03 20:56] LABS: INFLUENZA A AMPLIFICATION NEGATIVE (NEGATIVE); INFLUENZA B AMPLIFICATION NEGATIVE (NEGATIVE)
[2019-09-03 20:57] LABS: ALBUMIN 3.7 GM/DL (3.2-5.2); ALT/SGPT 27 U/L (12-78); BILIRUBIN,DIRECT < 0.1 MG/DL (0.0-0.2); BILIRUBIN,TOTAL 0.3 MG/DL (0.2-1.0); BLOOD UREA NITROGEN 13 MG/DL (7-18); CARBON DIOXIDE LEVEL 23 MEQ/L (21-32); CHLORIDE LEVEL 107 MEQ/L (98-107); CREATININE FOR GFR 0.67 MG/DL (0.55-1.30); GLOMERULAR FILTRATION RATE > 60.0 (>60); GLUCOSE, FASTING 91 MG/DL (70-100); LIPASE 89 U/L (73-393); POTASSIUM SERUM 4.5 MEQ/L (3.5-5.1); SODIUM LEVEL 139 MEQ/L (136-145); TOTAL PROTEIN 7.3 GM/DL (6.4-8.2)
[2019-09-03] MEDS ORDERED: ISOVUE-370 76% 100ML VIAL (Q9967) As Ordered ONE (21:43)
--- NOTE | 2019-09-03 22:14 | REPVR ---
PROCEDURE INFORMATION: Exam: CT Abdomen And Pelvis With Contrast Exam date and time: 09/03/2019 9:48 PM Age: 28 years old Clinical indication: Abdominal pain; Generalized TECHNIQUE: Imaging protocol: Computed tomography of the abdomen and pelvis with intravenous contrast. Radiation optimization: All CT scans at this facility use at least one of these dose optimization techniques: automated exposure control; mA and/or kV adjustment per patient size (includes targeted exams where dose is matched to clinical indication); or iterative reconstruction. Contrast material: ISOVUE 370; Contrast volume: 100 ml; Contrast route: IV; COMPARISON: CT ABD PELVIS WITH CONTRAST 02/15/2016 12:12 AM US - PELVIS MEAT BONER 09/03/2019 7:48:37 PM FINDINGS: Lungs: The imaged lung bases are clear. Heart: No cardiomegaly. No pericardial effusion. Diaphragm: Intact. Liver: Unremarkable. No liver lesion is seen. The contour of the liver is smooth. No hepatomegaly is noted. The liver measures 14.7 cm in craniocaudal dimension at the level of the right midclavicular line. Gallbladder and bile ducts: No calcified gallstones are seen. No gallbladder wall thickening, pericholecystic fluid, or pericholecystic inflammatory changes are identified. No dilation of the intrahepatic or extrahepatic bile ducts is noted. Pancreas: Normal. No ductal dilation. Spleen: Normal. No splenomegaly. Adrenals: Normal. No mass. Kidneys and ureters: The kidneys are normal in appearance. No renal lesion is identified. No calculi are seen in the kidneys or ureters. There is no hydronephrosis or hydroureter. There are no wedge-shaped areas of low attenuation in the kidneys to suggest pyelonephritis. There is no renal abscess or perinephric fluid collection. 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 No anastomotic leak is noted. There is no evidence for a bowel obstruction, diverticulosis, diverticulitis, colitis, pneumatosis intestinalis, intussusception, volvulus, or perforated viscus. There is a mild amount of formed stool in the colon. Appendix: There is intraluminal high density within the appendix, which is compatible with an appendicolith. The appendix is not dilated and there is no inflammatory fat stranding or fluid around the appendix to indicate appendicitis. Intraperitoneal space: Unremarkable. No fluid collection. No free air. Retroperitoneal space: Unremarkable. No fluid collection. No mass. Vasculature: The abdominal aorta is patent, normal in caliber, and there is no dissection. The renal arteries, celiac artery, superior mesenteric artery, inferior mesenteric artery, iliac arteries, and common femoral arteries are patent. The portal veins, splenic vein, superior mesenteric vein, inferior mesenteric vein, and renal veins are patent. There is a circumaortic left renal vein. Lymph nodes: Normal. No enlarged lymph nodes. Bladder: Unremarkable. No calculi or masses are noted in the bladder. Reproductive: The uterus is anterverted and unremarkable. The ovaries are unremarkable. Bones/joints: The imaged bony structures are intact. There is no suspicious osteolytic or osteoblastic lesion. Soft tissues: There is increased adipose tissue. No hernia. IMPRESSION: No acute findings in the abdomen or pelvis. Electronically signed by: Mike Gibson On 09/03/2019 22:16:16 PM
[2019-09-03] MEDS ORDERED: BACT800T5 PO (22:58)
[2019-09-03 23:06] VITALS: BP 135/77
== END 2019-09-03 23:09 | disposition home or self-care (01) ==
LOC: M ED 18:46
DX: J06.9 Acute upper respiratory infection, unspecified (principal); N39.0 Urinary tract infection, site not specified; R10.2 Pelvic and perineal pain; E03.9 Hypothyroidism, unspecified; Z98.84 Bariatric surgery status; Z88.0 Allergy status to penicillin; Z91.030 Bee allergy status; Z91.040 Latex allergy status
CPT/HCPCS: 36415; 74177; 76830; 76856; 80047; 80048; 80076; 81000; 83690; 84702; 85025; 87086; 87502; 87880; 93976; 96374; 96375; 99284; J1885; J2405; Q9967

== ENCOUNTER → 2020-01-20 | Outpatient (REF) | payer OTHER ==
[2020-01-20 18:27] LABS: CHLAMYDIA DNA AMPLIFICATION NEGATIVE (NEGATIVE); GC DNA AMPLIFICATION NEGATIVE (NEGATIVE)
== END ==
LOC: M SFHCWAGY 16:31
PROVIDERS: ATTEND Advanced Practice Midwife
DX: R35.0 Frequency of micturition (principal)

== ENCOUNTER 2020-05-13 01:17 | Emergency (ER) | payer OTHER ==
[~2020-05-13] VITALS: Ht 167.6 cm; Wt 145.4 kg
[2020-05-13 02:02] LABS: BASO # 0.1 10^3/uL (0.0-0.2); BASO % 0.4 % (0.0-1.0); EOS # 0.4 10^3/uL (0.0-0.5); EOS % 2.9 % (0.0-3.0); HEMATOCRIT 43.7 % (36.0-47.0); HEMOGLOBIN 14.4 g/dl (12.0-15.5); LYMPH # 4.9 10^3/uL (1.5-5.0); LYMPH % 38.4 % (24.0-44.0); MEAN CORPUSCULAR HEMOGLOBIN 30.1 pg (27.0-33.0); MEAN CORPUSCULAR VOLUME 91.4 fl (80.0-96.0); MONO # 0.7 10^3/uL (0.0-0.8); MONO % 5.2 % (0.0-5.0); NEUTROPHILS # 6.7 10^3/uL (1.5-8.5); NEUTROPHILS % 52.8 % (36.0-66.0); PLATELET COUNT, AUTOMATED 366 10^3/uL (150-450); RED BLOOD COUNT 4.78 10^6/uL (4.00-5.40); WHITE BLOOD COUNT 12.6 10^3/uL (4.0-10.0)
[2020-05-13] MEDS ORDERED: [UNRECOGNIZED DRUG - CODE] PO (02:05)
[2020-05-13 02:20] LABS: HCG, SERUM QUALITATIVE NEGATIVE (NEGATIVE)
[2020-05-13 02:22] LABS: BLOOD UREA NITROGEN 15 MG/DL (7-18); CARBON DIOXIDE LEVEL 25 MEQ/L (21-32); CHLORIDE LEVEL 109 MEQ/L (98-107); GLOMERULAR FILTRATION RATE > 60.0 (>60); GLUCOSE, FASTING 89 MG/DL (70-100); POTASSIUM SERUM 4.2 MEQ/L (3.5-5.1); SODIUM LEVEL 142 MEQ/L (136-145)
[2020-05-13] MEDS ORDERED: ACETAMINOPHEN 325 MG TAB PO ONE (02:30)
--- NOTE | 2020-05-13 03:10 | REPVR ---
PROCEDURE INFORMATION: Exam: US Pelvis Complete, Transabdominal and US Pelvis, Transvaginal Exam date and time: 05/13/2020 2:52 AM Age: 29 years old Clinical indication: Menstruation abnormalities; Excessive menstruation; With irregular cycle; Additional info: Vaginal bleeding TECHNIQUE: Imaging protocol: Real-time transabdominal and transvaginal pelvic ultrasound (complete) with image documentation. Transvaginal imaging was used for better evaluation of the endometrium and adnexa. COMPARISON: US PELVIC NON-OB COMPLETE 03/13/2014 6:35 PM FINDINGS: Uterus/cervix: The endometrium measures 3-4 mm. The uterus measures 3.5 cm in its lateral dimension. Trace endocervical fluid is noted. Right adnexa: The right ovary is not seen. Left adnexa: The left ovary is not seen. Intraperitoneal space: None. Urinary bladder: The urinary bladder is not seen. IMPRESSION: 1. Trace endocervical fluid which is nonspecific. 2. Otherwise negative pelvic sonogram. Neither ovary is seen. Electronically signed by: Logan Jeff On 05/13/2020 03:10:16 AM
[2020-05-13] MEDS ORDERED: ISOVUE-370 76% 100ML VIAL As Ordered ONE (04:34)
[2020-05-13] MEDS ORDERED: DOXY100C37 PO (04:51)
[2020-05-13 04:55] LABS: CHLAMYDIA DNA AMPLIFICATION POSITIVE (NEGATIVE); GC DNA AMPLIFICATION NEGATIVE (NEGATIVE)
[2020-05-13] MEDS ORDERED: cefTRIAXone SOD 250MG VIAL (J0696 PER 250MG) IM ONE (05:00)
[2020-05-13] MEDS ORDERED: AZITHROMYCIN 250MG TABLET PO ONE (05:00)
--- NOTE | 2020-05-13 05:19 | REPVR ---
PROCEDURE INFORMATION: Exam: CT Abdomen And Pelvis With Contrast Exam date and time: 05/13/2020 4:49 AM Age: 29 years old Clinical indication: Abdominal pain; Additional info: Periumbilical pain HX of gastric bypass iud laparotomy TECHNIQUE: Imaging protocol: Computed tomography of the abdomen and pelvis with intravenous contrast. Radiation optimization: All CT scans at this facility use at least one of these dose optimization techniques: automated exposure control; mA and/or kV adjustment per patient size (includes targeted exams where dose is matched to clinical indication); or iterative reconstruction. Contrast material: ISOVUE 370; Contrast volume: 100 ml; Contrast route: INTRAVENOUS (IV); COMPARISON: CT ABD/PEL W/IV CONTRAST ONLY 09/03/2019 9:45 PM FINDINGS: Liver: Normal. No mass. Gallbladder and bile ducts: Normal. No calcified stones. No ductal dilation. Pancreas: Normal. No ductal dilation. Spleen: Normal. No splenomegaly. Adrenals: Normal. No mass. Kidneys and ureters: Normal. No hydronephrosis. Stomach and bowel: There has been gastric bypass with minimal fluid and gas in the bypassed stomach. Appendix: A normal appendix is seen. Intraperitoneal space: Unremarkable. No free air. No significant fluid collection. Vasculature: Unremarkable. No abdominal aortic aneurysm. Lymph nodes: Unremarkable. No enlarged lymph nodes. Urinary bladder: Unremarkable as visualized. Reproductive: Unremarkable as visualized. Bones/joints: Unremarkable. No acute fracture. Soft tissues: Unremarkable. IMPRESSION: There has been little change from 09/03/2019 with prior gastric bypass. No acute interval process is identified. Electronically signed by: Logan Jeff On 05/13/2020 05:18:38 AM
[2020-05-13] MEDS ORDERED: LIDOCAINE 1% SDV 5ML VIAL As Ordered ONE (05:22)
[2020-05-13 05:30] VITALS: BP 152/84
== END 2020-05-13 05:57 | disposition home or self-care (01) ==
LOC: M ED 01:17
DX: N72 Inflammatory disease of cervix uteri (principal); K50.90 Crohn's disease, unspecified, without complications; J45.909 Unspecified asthma, uncomplicated; Z98.84 Bariatric surgery status; Z88.0 Allergy status to penicillin; Z91.030 Bee allergy status; Z91.040 Latex allergy status; Z91.048 Other nonmedicinal substance allergy status; Z79.51 Long term (current) use of inhaled steroids; Z79.899 Other long term (current) drug therapy
CPT/HCPCS: 36415; 74177; 76830; 76856; 80048; 81001; 84703; 85025; 86850; 86900; 86901; 87210; 87661; 96372; 99285; J0696; Q9967

== ENCOUNTER → 2020-06-18 | Outpatient (REF) | payer OTHER ==
[~2020-06-18] MED LIST changes: +DOXY100C37 PO; +[UNRECOGNIZED DRUG - CODE] PO
== END ==
LOC: M LAB REF 15:48
PROVIDERS: ATTEND Nurse Practitioner Family
DX: J02.9 Acute pharyngitis, unspecified (principal)

== ENCOUNTER → 2020-09-29 | Outpatient (CLI) | payer OTHER ==
[~2020-09-29] MED LIST changes: -ESCI20TA; +ESCI20TA16
== END ==
LOC: M LABSMTC 08:33
PROVIDERS: ATTEND Anesthesiology
DX: Z01.812 Encounter for preprocedural laboratory examination (principal); Z20.822 Contact with and (suspected) exposure to COVID-19

== ENCOUNTER 2020-10-04 08:38 | Day surgery (SDC) | payer OTHER ==
[~2020-10-04] VITALS: Ht 167.6 cm; Wt 148.8 kg
[~2020-10-04 08:38] MED LIST changes: +ESTA0.25 PO; +LIDOCAINE 2% 100MG/5ML SDV (FOR ANES.) As Ordered ONE; +MELA3TAB10 PO; +NS 1,000 ML IV ONE; +QUET25TA3 PO; +propofoL 200 MG/20 ML VIAL As Ordered ONE
--- NOTE | 2020-10-04 11:16 | ROOR ---
Patient Name: Leslie Goldstein Procedure Date: 10/04/2020 10:47 AM Date of : 1990 Age: 30 Room: [facility] Gender: Female Note Status: Finalized Procedure: Colonoscopy Indications: Chronic diarrhea, Suspected irritable bowel syndrome, Irritable bowel syndrome with diarrhea Providers: Lance VALENTINE MD Referring MD: Harman ENRIQUE MD Requesting Provider: Medicines: Monitored Anesthesia Care Complications: No immediate complications. Procedure: Pre-Anesthesia Assessment: - The heart rate, respiratory rate, oxygen saturations, blood pressure, adequacy of pulmonary ventilation, and response to care were monitored throughout the procedure. The Colonoscope was introduced through the anus and advanced to 15 cm into the ileum. The colonoscopy was performed without difficulty. The patient tolerated the procedure well. The quality of the bowel preparation was good. Findings: The perianal and digital rectal examinations were normal. The terminal ileum appeared normal. A diminutive polyp was found in the sigmoid colon. The polyp was sessile. The polyp was removed with a cold snare. Resection and retrieval were complete. Small Internal Hemorrhoids. Retroflexion in the right colon was performed. The exam was otherwise normal throughout the examined colon. Biopsies were taken with a cold forceps in the entire colon and in the terminal ileum for histology. Impression: - The examined portion of the ileum was normal. - One diminutive polyp in the sigmoid colon, removed with a cold snare. Resected and retrieved. - Small Internal Hemorrhoids. - The colon is otherwise normal. - Biopsies were taken with a cold forceps for histology in the entire colon and in the terminal ileum. - (Irritable Bowel Syndrome/IBS suspected.) Recommendation: - Telephone endoscopist for pathology results in 2 weeks. - Use fiber, for example Citrucel, Fibercon, Konsyl or Metamucil. - Use Bentyl (dicyclomine) 20 mg PO Q 6-8 hrs prn 30 min AC. Procedure Code(s): --- Professional --- 77132, Colonoscopy, flexible; with removal of tumor(s), polyp(s), or other lesion(s) by snare technique 14794, 59, Colonoscopy, flexible; with biopsy, single or multiple Diagnosis Code(s): --- Professional --- K58.0, Irritable bowel syndrome with diarrhea K52.9, Noninfective gastroenteritis and colitis, unspecified K63.5, Polyp of colon CPT copyright 2019 [employer]. All rights reserved. The codes documented in this report are preliminary and upon classification clerk review may be revised to meet current compliance requirements. Lance Valentine MD Lance VALENTINE MD 10/04/2020 11:15:59 AM Electronically signed by Lance VALENTINE MD Number of Addenda: 0 Note Initiated On: 10/04/2020 10:47 AM Estimated Blood Loss: Estimated blood loss: none.
[2020-10-04 11:40] VITALS: BP 134/81
[2020-10-04] MEDS ORDERED: propofoL 200 MG/20 ML VIAL As Ordered ONE (11:40)
== END 2020-10-04 11:42 | disposition home or self-care (01) ==
LOC: M OPP 08:38
PROVIDERS: ATTEND Internal Medicine Gastroenterology
DX: K63.5 Polyp of colon (principal); K64.8 Other hemorrhoids; R19.7 Diarrhea, unspecified; F17.210 Nicotine dependence, cigarettes, uncomplicated; Z88.0 Allergy status to penicillin; Z91.030 Bee allergy status; Z91.040 Latex allergy status; Z91.048 Other nonmedicinal substance allergy status; Z98.84 Bariatric surgery status; Z79.899 Other long term (current) drug therapy

== ENCOUNTER → 2020-11-14 | Outpatient (REF) | payer OTHER ==
[~2020-11-14] MED LIST changes: -LIDOCAINE 2% 100MG/5ML SDV (FOR ANES.) As Ordered ONE; -NS 1,000 ML IV ONE; -propofoL 200 MG/20 ML VIAL As Ordered ONE
[2020-11-14 18:15] LABS: BASO # 0.1 10^3/uL (0.0-0.2); BASO % 0.7 % (0.0-1.0); EOS # 0.2 10^3/uL (0.0-0.5); EOS % 2.7 % (0.0-3.0); HEMATOCRIT 44.8 % (36.0-47.0); HEMOGLOBIN 14.4 g/dl (12.0-15.5); LYMPH % 33.7 % (24.0-44.0); MEAN CORPUSCULAR HEMOGLOBIN 30.6 pg (27.0-33.0); MEAN CORPUSCULAR HGB CONC 32.1 g/dl (32.0-36.5); MEAN CORPUSCULAR VOLUME 95.3 fl (80.0-96.0); MONO # 0.6 10^3/uL (0.0-0.8); MONO % 6.8 % (2.0-8.0); NEUTROPHILS # 4.9 10^3/uL (1.5-8.5); NEUTROPHILS % 55.8 % (36.0-66.0); PLATELET COUNT, AUTOMATED 358 10^3/uL (150-450); WHITE BLOOD COUNT 8.9 10^3/uL (4.0-10.0)
[2020-11-14 21:32] LABS: ALBUMIN 3.5 GM/DL (3.2-5.2); ALT/SGPT 22 U/L (12-78); BILIRUBIN,TOTAL 0.3 MG/DL (0.2-1.0); BLOOD UREA NITROGEN 16 MG/DL (7-18); CALCIUM LEVEL 9.6 MG/DL (8.5-10.1); CARBON DIOXIDE LEVEL 24 MEQ/L (21-32); CHLORIDE LEVEL 107 MEQ/L (98-107); CHOLESTEROL LEVEL 172 MG/DL (<200); FERRITIN 28 NG/ML (8-252); FREE T4 1.04 NG/DL (0.76-1.46); GLOMERULAR FILTRATION RATE > 60.0 (>60); GLUCOSE, FASTING 91 MG/DL (70-100); HDL CHOLESTEROL 63 MG/DL (>40); IRON (FE) 156 UG/DL (50-170); LDL CHOLESTEROL 89 MG/DL (<100); NON-HDL-C 109 MG/DL; PERCENT SATURATION 38.7 % (13.2-45.0); POTASSIUM SERUM 4.8 MEQ/L (3.5-5.1); SODIUM LEVEL 140 MEQ/L (136-145); TOTAL IRON BINDING CAPACITY 403 UG/DL (250-450); TRIGLYCERIDES LEVEL 101 MG/DL (<150)
[2020-11-15 13:40] LABS: VITAMIN B12 LEVEL 455 PG/ML
[2020-11-15 13:54] LABS: FOLATE 3.4 NG/ML
== END ==
LOC: M LAB REF 17:02
PROVIDERS: ATTEND Pediatrics
DX: E05.90 Thyrotoxicosis, unspecified without thyrotoxic crisis or storm (principal); Z98.84 Bariatric surgery status

== ENCOUNTER 2020-12-17 12:19 | Emergency (ER) | payer OTHER ==
[~2020-12-17] VITALS: Ht 170.2 cm; Wt 147.6 kg
[2020-12-17 12:20] VITALS: BP 133/93
[2020-12-17] MEDS ORDERED: PERI0.126 PO (15:50)
== END 2020-12-17 16:25 | disposition home or self-care (01) ==
LOC: M ED 12:19
DX: J02.9 Acute pharyngitis, unspecified (principal); H92.09 Otalgia, unspecified ear; Z88.0 Allergy status to penicillin; Z91.040 Latex allergy status; Z98.84 Bariatric surgery status

== ENCOUNTER 2021-07-07 17:38 | Emergency (ER) | payer OTHER ==
[~2021-07-07] VITALS: Ht 170.2 cm; Wt 146.8 kg
[~2021-07-07 17:38] MED LIST changes: +DOXY-443 PO; -DOXY100C37 PO; +PERI0.126 PO; +QUET1TAB17 PO; -QUET25TA3 PO
--- OUTSIDE RECORDS SUMMARY | 2021-07-07 17:44 | CCD ---
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 Name Role Phone Tatiana Figueroa NP Unavailable Unavailable Tatiana Figueroa NP Unavailable Unavailable Tatiana Figueroa NP Unavailable Unavailable Tatiana Figueroa NP Unavailable Unavailable Tatiana Figueroa NP Unavailable Unavailable Tatiana Figueroa NP Unavailable Unavailable Tatiana Figueroa NP Unavailable Unavailable Figueroa, Tatiana ADJUNCT LATIN PROFESSOR Unavailable Unavailable Figueroa, Tatiana ADJUNCT LATIN PROFESSOR Unavailable Unavailable Figueroa, Tatiana ADJUNCT LATIN PROFESSOR Unavailable Unavailable Figueroa, Tatiana ADJUNCT LATIN PROFESSOR Unavailable Unavailable Figueroa, Tatiana ADJUNCT LATIN PROFESSOR Unavailable Unavailable Figueroa, Tatiana ADJUNCT LATIN PROFESSOR Unavailable Unavailable Atkinson, E Sarai ADJUNCT LATIN PROFESSOR Unavailable Unavailable Atkinson, E Sarai ADJUNCT LATIN PROFESSOR Unavailable Unavailable Atkinson, E Sarai ADJUNCT LATIN PROFESSOR Unavailable Unavailable Atkinson, E Sarai ADJUNCT LATIN PROFESSOR Unavailable Unavailable Atkinson, E Sarai ADJUNCT LATIN PROFESSOR Unavailable Unavailable Atkinson, E Sarai ADJUNCT LATIN PROFESSOR Unavailable Unavailable Atkinson, E Sarai ADJUNCT LATIN PROFESSOR Unavailable Unavailable Atkinson, E Sarai ADJUNCT LATIN PROFESSOR Unavailable Unavailable Atkinson, E Sarai ADJUNCT LATIN PROFESSOR Unavailable Unavailable Atkinson, E Sarai ADJUNCT LATIN PROFESSOR Unavailable Unavailable Atkinson, E Sarai ADJUNCT LATIN PROFESSOR Unavailable Unavailable Atkinson, E Sarai ADJUNCT LATIN PROFESSOR Unavailable Unavailable Atkinson, E Sarai ADJUNCT LATIN PROFESSOR Unavailable Unavailable Atkinson, E Sarai ADJUNCT LATIN PROFESSOR Unavailable Unavailable Atkinson, E Sarai ADJUNCT LATIN PROFESSOR Unavailable Unavailable Atkinson, E Sarai ADJUNCT LATIN PROFESSOR Unavailable Unavailable Atkinson, E Sarai ADJUNCT LATIN PROFESSOR Unavailable Unavailable Atkinson, E Sarai ADJUNCT LATIN PROFESSOR Unavailable Unavailable Atkinson, E Sarai ADJUNCT LATIN PROFESSOR Unavailable Unavailable Atkinson, E Sarai ADJUNCT LATIN PROFESSOR Unavailable Unavailable Atkinson, E Sarai ADJUNCT LATIN PROFESSOR Unavailable Unavailable Atkinson, E Sarai ADJUNCT LATIN PROFESSOR Unavailable Unavailable Atkinson, E Sarai ADJUNCT LATIN PROFESSOR Unavailable Unavailable Barbara, Angely Unavailable Unavailable Barbara, Angely Unavailable Unavailable Barbara, Angely Unavailable Unavailable Barbara, Angely Unavailable Unavailable Barbara, Angely Unavailable Unavailable Barbara, Angely Unavailable Unavailable Barbara, Angely Unavailable Unavailable Barbara, Angely Unavailable Unavailable Barbara, Angely Unavailable Unavailable Barbara, Angely Unavailable Unavailable Barbara, Angely Unavailable Unavailable Barbara, Angely Unavailable Unavailable Barbara, Angely Unavailable Unavailable Barbara, Angely Unavailable Unavailable Barbara, Angely Unavailable Unavailable Barbara, Angely Unavailable Unavailable Barbara, Nagely Unavailable Unavailable Barbara, Angely Unavailable Unavailable Barbara, Angely Unavailable Unavailable Barbara, Angely Unavailable Unavailable Barbara, Angely Unavailable Unavailable Barbara, Angely Unavailable Unavailable Barbara, Angely Unavailable Unavailable Barbara, Angely Unavailable Unavailable Barbara, Angely Unavailable Unavailable Barbara, Angely Unavailable Unavailable Barbara, Angely Unavailable Unavailable Barbara, Agnely Unavailable Unavailable Fostveit, Noni Unavailable Unavailable Fostveit, Noni Unavailable Unavailable Re-disclosure Warning The records that you are about to access may contain information from federally-assisted alcohol or drug abuse programs. If such information is present, then the following federally mandated warning applies: This information has been disclosed to you from records protected by federal confidentiality rules (42 CFR part 2). The federal rules prohibit you from making any further disclosure of this information unless further disclosure is expressly permitted by the written consent of the person to whom it pertains or as otherwise permitted by 42 CFR part 2. A general authorization for the release of medical or other information is NOT sufficient for this purpose. The Federal rules restrict any use of the information to criminally investigate or prosecute any alcohol or drug abuse patient.The records that you are about to access may contain highly sensitive health information, the redisclosure of which is protected by Article 27-F of the [facility] Public Health law. If you continue you may have access to information: Regarding HIV / AIDS; Provided by facilities licensed or operated by the [facility] Office of Mental Health; or Provided by the [facility] Office for People With Developmental Disabilities. If such information is present, then the following [facility] mandated warning applies: This information has been disclosed to you from confidential records which are protected by state law. State law prohibits you from making any further disclosure of this information without the specific written consent of the person to whom it pertains, or as otherwise permitted by law. Any unauthorized further disclosure in violation of state law may result in a fine or group home sentence or both. A general authorization for the release of medical or other information is NOT sufficient authorization for further disc losure. Family History Family Member Name Family Member Gender Family Member Status Date o f Status Description Data Source(s) Unknown Male Problem MEDENT ([facility]) Unknown Unknown Problem [facility] MGM Unknown Male Problem [facility] ([facility] Encounters Encounter Providers Location Date Indications Data Source(s ) Noni Landeros LCSW-R: [address] [place] [address], Ph. Attender: Noni Holley [place] - [facility] Medical 12/04/2020 12:00:00 AM [place] ([facility]) Kiki Jmienez MD: [address], [place] [address], Ph. Attender: Kiki Jimenez [facility] Medical 11/14/2020 12:00:00 AM EDT [place] ([facility]) Kiki Jimenez MD: [address], [place] [address], Ph. Attender: Kiki Jimenez [facility] Medical 11/14/2020 12:00:00 AM EDT [place] ([facility]) SOFY VelascoW-R: [address], [place] [address], Ph. Attender: Noni Holley [facility] Medical 10/22/2020 12:00:00 AM EDT [place] ([facility]) SOFY VelascoW-R: [address], [place] [address], Ph. Attender: Noni Holley [facility] Medical 10/22/2020 12:00:00 AM EDT [place] ([facility]) SOFY VelascoW-R: [address], [place] [address], Ph. Attender: Noni Holley [facility] Medical 10/22/2020 12:00:00 AM EDT [place] ([facility]) RENAE SofiaBC: [address], [place] [address], Ph. Attender: Sarai Atkinson NP [facility] Medical 10/03/2020 12:00:00 AM EST [place] ([facility]) RENAE SofiaBC: [address], [place] [address], Ph. Attender: Sarai Atkinson NP [facility] Medical 10/03/2020 12:00:00 AM EST [place] ([facility]) Sarai Atkinson, ANP-BC: [address], [place] [address], Ph. Attender: Sarai Atkinson NP [facility] Medical 10/03/2020 12:00:00 AM EST [place] ([facility]) Unknown [address] [facility] [address] 10/02/2020 12:00:00 AM EST eCW1 ([facility]) SOFY VelascoW-R: [address], [place] [address], Ph. Attender: Noni Holley [facility] Medical 09/03/2020 12:00:00 AM EST [place] ([facility]) SOFY VelascoW-R: [address], [place] [address], Ph. Attender: Noni Holley [facility] Medical 09/03/2020 12:00:00 AM EST [place] ([facility]) SOFY VelascoW-R: [address], [place] [address], Ph. Attender: Noni Holley [facility] Medical 09/03/2020 12:00:00 AM EST [place] ([facility]) SOFY VelascoW-R: [address], [place] [address], Ph. Attender: Noni Holley [facility] Medical 09/03/2020 12:00:00 AM EST Abdominal Pain [place] ([facility]) Abdominal Pain SOFY VelascoW-R: [address], [place] [address], Ph. Attender: Noni Holley [facility] Medical 09/03/2020 12:00:00 AM EST [place] ([facility]) SOFY VelascoW-R: [address], [place] [address], Ph. Attender: Noni Hernandezrosario [facility] Medical 08/13/2020 12:00:00 AM EST [place] ([facility]) SOFY VelascoW-R: [address], [place] [address], Ph. Attender: Noni Jolynntonyarosario [facility] Medical 08/13/2020 12:00:00 AM EST [place] ([facility]) SOFY VelascoW-R: [address], [place] [address], Ph. Attender: Noniyong Holley [facility] Medical 08/13/2020 12:00:00 AM EST [place] ([facility]) SOFY VelascoW-R: [address], [place] [address], Ph. Attender: Noni Holley [facility] Medical 08/13/2020 12:00:00 AM EST [place] ([facility]) SOFY VelascoW-R: [address], [place] [address], Ph. Attender: Noniyong Holley [facility] Medical 08/13/2020 12:00:00 AM EST [place] ([facility]) SOFY VelascoW-R: [address], [place] [address], Ph. Attender: Noni Holley [facility] Medical 08/13/2020 12:00:00 AM EST [place] ([facility]) RENAE SofiaBC: [address], [place] [address], Ph. Attender: Sarai Atkinson NP [facility] Medical 07/11/2020 12:00:00 AM EST [place] ([facility]) RENAE SofiaBC: [address], [place] [address], Ph. Attender: Sarai Atkinson NP [facility] Medical 07/11/2020 12:00:00 AM EST [place] ([facility]) RENAE SofiaBC: [address], [place] [address], Ph. Attender: Sarai Atkinson NP [facility] Medical 07/11/2020 12:00:00 AM EST [place] ([facility]) RENAE SofiaBC: [address], [place] [address], Ph. Attender: Sarai Aktinson NP [facility] Medical 07/11/2020 12:00:00 AM EST [place] ([facility]) RENAE SofiaBC: [address], [place] [address], Ph. Attender: Sarai Atkinson NP [facility] Medical 07/11/2020 12:00:00 AM EST [place] ([facility]) RENAE SofiaBC: [address], [place] [address], Ph. Attender: Sarai Atkinson NP [facility] Medical 07/11/2020 12:00:00 AM EST [place] ([facility]) Sarai Atkinson, ANP-BC: [address], [place] [address], Ph. Attender: Sarai Atkinson NP [facility] Medical 07/11/2020 12:00:00 AM EST [place] ([facility]) SOFY VelascoW-R: [address], [place] [address], Ph. Attender: Noni Holley [facility] Medical 06/25/2020 12:00:00 AM EST [place] ([facility]) SOFY VelascoW-R: [address], [place] [address], Ph. Attender: Noni Holley [facility] Medical 06/25/2020 12:00:00 AM EST [place] ([facility]) SOFY VelascoW-R: [address], [place] [address], Ph. Attender: Noni Holley [facility] Medical 06/25/2020 12:00:00 AM EST [place] ([facility]) Noni Landeros LCSW-R: [address], [place] [address], Ph. Attender: Noni Holley [facility] Medical 06/25/2020 12:00:00 AM EST [place] ([facility]) Noni Landeros LCSW-R: [address], [place] [address], Ph. Attender: Noni Holley [facility] Medical 06/25/2020 12:00:00 AM EST [place] ([facility]) Noni Landeros LCSW-R: [address], [place] [address], Ph. Attender: Noniyong Holley [facility] Medical 06/25/2020 12:00:00 AM EST [place] ([facility]) SOFY VelascoW-R: [address], [place] [address], Ph. Attender: Noni Holley [facility] Medical 06/25/2020 12:00:00 AM EST [place] ([facility]) SOFY VelascoW-R: [address], [place] [address], Ph. Attender: Noni Leydi [facility] Medical 06/25/2020 12:00:00 AM EST [place] ([facility]) ( PROC) [facility] [facility] [address] [place] [address] 06/22/2020 12:00:00 AM EST eCW1 ([facility]) Outpatient Attender: Tatiana Roe mirna 06/18/2020 12:00:00 PM EST MEDENT ([facility]) Outpatient FP 06/12/2020 10:22:00 AM EST [facility] Noni Landeros LCSW-R: [address], [place] [address], Ph. Attender: Noni Holley [facility] Medical 06/11/2020 12:00:00 AM EST [place] ([facility]) Noni Landeros LCSW-R: [address], [place] [address], Ph. Attender: Noni Holley [facility] Medical 06/11/2020 12:00:00 AM EST [place] ([facility]) SOFY VelascoW-R: [address], [place] [address], Ph. Attender: Noni Holley [facility] Medical 06/11/2020 12:00:00 AM EST [place] ([facility]) SOFY VelasocW-R: [address], [place] [address], Ph. Attender: Noni Holley [facility] Medical 06/11/2020 12:00:00 AM EST [place] ([facility]) SOFY VelascoW-R: [address], [place] [address], Ph. Attender: Noni Holley [facility] Medical 06/11/2020 12:00:00 AM EST [place] ([facility]) SOFY VelascoW-R: [address], [place] [address], Ph. Attender: Noni Holley [facility] Medical 06/11/2020 12:00:00 AM EST [place] ([facility]) SOFY VelascoW-R: [address], [place] [address], Ph. Attender: Noni Holley [facility] Medical 06/11/2020 12:00:00 AM EST [place] ([facility]) SOFY VelascoW-R: [address], [place] [address], Ph. Attender: Noni Holley [facility] Medical 06/11/2020 12:00:00 AM EST [place] ([facility]) SOFY VelascoW-R: [address], [place] [address], Ph. Attender: Noni Holley [place] - [facility] Medical 06/11/2020 12:00:00 AM EST [place] ([facility]) Outpatient FP 05/23/2020 08:01:00 PM EDT [facility] Outpatient FP 05/21/2020 04:19:02 PM EDT [facility] Outpatient FP 05/18/2020 12:18:02 PM EDT [facility] Outpatient FP 05/16/2020 11:16:00 AM EDT [facility] Outpatient FP 05/16/2020 11:15:59 AM EDT [facility] Outpatient FP 05/11/2020 09:12:00 AM EDT [facility] Outpatient FP 05/09/2020 07:30:01 AM EDT [facility] Immunizations Vaccine Date Status Description Data Source(s) COVID-19 VACCINE Johnathan 12/31/2020 12:00:00 AM EDT completed [facility] Vaccine Series Complete: YESThis Data wa s Submitted to [facility] [employer]. Medications Medication Brand Name Start Date Product Form Dose Route Admi nistrative Instructions Pharmacy Instructions Status Indications Reaction Description Data Source(s) Sprintec 28 0.25-35 MG-MCG Sprintec 28 0.25-35 MG-MCG 2019 12:00:00 AM EST 1.0 {tablet} active Sprintec 28 0.25-35 MG-MCG eCW1 ([facility]) Sprintec 28 0.25-35 MG-MCG Sprintec 28 0.25-35 MG-MCG 2019 12:00:00 AM EST 1.0 {tablet} active Sprintec 28 0.25-35 MG-MCG eCW1 ([facility]) Prednisone 20 MG Oral Tablet Prednisone 06/18/2020 12:00:00 AM EST active MEDENT ([facility]) quetiapine 25 MG Oral Tablet quetiapine 25 mg tablet TAKE 1 OR 2 TABLETS BY MOUTH AT BEDTIME NEEDED FOR SLEEP quetiapine 25 mg tablet TAKE 1 OR 2 TABL ETS BY MOUTH AT BEDTIME NEEDED FOR SLEEP completed quetiapine 25 MG Oral Tablet [place] ([facility]) fluticasone propionate 50 mcg/actuation nasal spray,suspension [id number] completed fluticasone propionate 0.05 MG/ACTUAT Metered Dose Nasal [place] ([facility]) ipratropium bromide 42 mcg (0.06 %) nasal spray [id number] completed ipratropium bromide 0.042 MG/ACTUAT Metered Dose Nasal [place] ([facility]) Doxycycline Monohydrate 100 MG Oral Caps ule doxycycline monohydrate 100 mg capsule TAKE ONE CAPSULE BY MOUTH EVERY 12 HOURS doxycycline monohydrate 100 mg capsule TAKE ONE CAPSULE BY MOUTH EVERY 12 HOURS completed doxycycline monohydrate 100 MG Oral Capsule [place] ([facility]) Sulfamethoxazole 800 MG / Trimethoprim 1 60 MG Oral Tablet sulfamethoxazole 800 mg-trimethoprim 160 mg tablet sulfamethoxazole 800 mg-trimethoprim 160 mg tablet completed sulfame thoxazole 800 MG / trimethoprim 160 MG Oral Tablet [facility]) Prednisone 20 MG Oral Tablet prednisone 20 mg tablet prednisone 20 mg tablet completed prednisone 20 MG Oral Tablet [place] ([facility]) Prednisone 20 MG Oral Tablet prednisone 20 mg tablet prednisone 20 mg tablet completed prednisone 20 MG Oral Tablet [place] ([facility]) Omeprazole 20 MG Delayed Release Oral Ca psule omeprazole 20 mg capsule,delayed release TAKE ONE CAPSULE BY MOUTH TWICE DAILY omeprazole 20 mg capsule,delayed release TAKE ONE CAPSULE BY MOUTH TWICE DAILY completed omeprazole 20 MG Delayed Release Oral Capsule [place] ([facility]) benzonatate 100 MG Oral Capsule benzonat ate 100 mg capsule TAKE ONE CAPSULE BY MOUTH THREE TIMES DAILY NEEDED FOR COUGH benzonatate 100 mg capsule TAKE ONE CAPSULE BY MOUTH THREE TIMES DAILY NEEDED FOR COUGH completed benzonatate 100 MG Oral Capsule [place] ([facility]) Magnesium Hydroxide 80 MG/ML Oral Suspen mariam Milk of Magnesia 400 mg/5 mL oral suspension TAKE 45 MILLILITERS BY MOUTH 1-2 DAYS BEFORE COLONSOSCOPY PREP Milk of Magnesia 400 mg/5 mL oral suspension TAKE 45 MILLILITERS BY MOUTH 1-2 DAYS BEFORE COLONSOSCOPY PREP completed magnesium hydroxide 80 MG/ML Oral Suspension [facility]) fluticasone propionate 50 mcg/actuation nasal spray,suspension [id number] completed fluticasone propionate 0.05 MG/ACTUAT Metered Dose Nasal [place] [facility]) ipratropium bromide 42 mcg (0.06 %) nasal spray [id number] completed ipratropium bromide 0.042 MG/ACTUAT Metered Dose Nasal [place] ([facility]) Sulfamethoxazole 800 MG / Trimethoprim 1 60 MG Oral Tablet sulfamethoxazole 800 mg-trimethoprim 160 mg tablet sulfamethoxazole 800 mg-trimethoprim 160 mg tablet completed sulfame thoxazole 800 MG / trimethoprim 160 MG Oral Tablet [place] ([facility]) Doxycycline Monohydrate 100 MG Oral Caps ule doxycycline monohydrate 100 mg capsule TAKE ONE CAPSULE BY MOUTH EVERY 12 HOURS doxycycline monohydrate 100 mg capsule TAKE ONE CAPSULE BY MOUTH EVERY 12 HOURS completed doxycycline monohydrate 100 MG Oral Capsule [place] ([facility]) Azithromycin 250 MG Oral Tablet azithrom ycin 250 mg tablet TAKE 2 TABLETS BY MOUTH ON DAY 1, THEN TAKE 1 TABLET DAILY ON DAYS 2-5 azithromycin 250 mg tablet TAKE 2 TABLETS BY MOUTH ON DAY 1, THEN TAKE 1 TABLET DAILY ON DAYS 2-5 completed azithromycin 250 MG Oral Tablet [place] ([facility]) benzonatate 100 MG Oral Capsule benzonat ate 100 mg capsule TAKE ONE CAPSULE BY MOUTH THREE TIMES DAILY NEEDED FOR COUGH benzonatate 100 mg capsule TAKE ONE CAPSULE BY MOUTH THREE TIMES DAILY NEEDED FOR COUGH completed benzonatate 100 MG Oral Capsule [place] ([facility]) Prednisone 20 MG Oral Tablet prednisone 20 mg tablet prednisone 20 mg tablet completed prednisone 20 MG Oral Tablet [facility]) Prednisone 20 MG Oral Tablet prednisone 20 mg tablet prednisone 20 mg tablet completed prednisone 20 MG Oral Tablet [place] ([facility]) Sertraline 100 MG Oral Tablet sertraline 100 mg tablet sertr katelin 100 mg tablet completed sertraline 100 MG Oral Tablet [place] ([facility]) Azithromycin 250 MG Oral Tablet azithrom ycin 250 mg tablet TAKE 2 TABLETS BY MOUTH ON DAY 1, THEN TAKE 1 TABLET DAILY ON DAYS 2-5 azithromycin 250 mg tablet TAKE 2 TABLETS BY MOUTH ON DAY 1, THEN TAKE 1 TABLET DAILY ON DAYS 2-5 completed azithromycin 250 MG Oral Tablet [place] ([facility]) Dicyclomine Hydrochloride 20 MG Oral Tab let dicyclomine 20 mg tablet TAKE ONE TABLET BY MOUTH FOUR TIMES DAILY NEEDED, 30 MINUTES PRIOR TO MEALS dicyclomine 20 mg tablet TAKE ONE TABLET BY MOUTH FOUR TIMES DAILY NEEDED, 30 MINUTES PRIOR TO MEALS completed dicyclomine hydrochloride 20 MG Oral Tablet [place] ([facility]) Ibuprofen 600 MG Oral Tablet ibuprofen 6 00 mg tablet TAKE ONE TABLET BY MOUTH TWICE DAILY ibuprofen 600 mg tablet TAKE ONE TABLET BY MOUTH TWICE DAILY completed ibuprofen 600 MG Ora l Tablet [place] ([facility]) Estarylla 0.25 mg-35 mcg tablet [id number] completed Estarylla 0.25 mg-35 mcg tablet [place] ([facility]) benzonatate 100 MG Oral Capsule benzonat ate 100 mg capsule TAKE ONE CAPSULE BY MOUTH THREE TIMES DAILY NEEDED FOR COUGH benzonatate 100 mg capsule TAKE ONE CAPSULE BY MOUTH THREE TIMES DAILY NEEDED FOR COUGH completed benzonatate 100 MG Oral Capsule [place] ([facility]) Sulfamethoxazole 800 MG / Trimethoprim 1 60 MG Oral Tablet sulfamethoxazole 800 mg-trimethoprim 160 mg tablet sulfamethoxazole 800 mg-trimethoprim 160 mg tablet completed sulfame thoxazole 800 MG / trimethoprim 160 MG Oral Tablet [place] ([facility]) Doxycycline Monohydrate 100 MG Oral Caps ule doxycycline monohydrate 100 mg capsule TAKE ONE CAPSULE BY MOUTH EVERY 12 HOURS doxycycline monohydrate 100 mg capsule TAKE ONE CAPSULE BY MOUTH EVERY 12 HOURS completed doxycycline monohydrate 100 MG Oral Capsule [place] ([facility]) Ibuprofen 600 MG Oral Tablet ibuprofen 6 00 mg tablet TAKE ONE TABLET BY MOUTH TWICE DAILY ibuprofen 600 mg tablet TAKE ONE TABLET BY MOUTH TWICE DAILY completed ibuprofen 600 MG Ora l Tablet [place] ([facility]) Acetaminophen 325 MG / Hydrocodone Trey trate 5 MG Oral Tablet hydrocodone 5 mg- acetaminophen 325 mg tablet hydrocodone 5 mg-acetaminophen 325 mg tablet completed acetaminophen 325 MG / hydrocodone bitartrate 5 MG Oral Tablet [place] ([facility]) Acetaminophen 325 MG / Hydrocodone Trey trate 5 MG Oral Tablet hydrocodone 5 mg- acetaminophen 325 mg tablet hydrocodone 5 mg-acetaminophen 325 mg tablet completed acetaminophen 325 MG / hydrocodone bitartrate 5 MG Oral Tablet [place] ([facility]) Sertraline 100 MG Oral Tablet sertraline 100 mg tablet sertr katelin 100 mg tablet completed sertraline 100 MG Oral Tablet [place] ([facility]) Omeprazole 20 MG Delayed Release Oral Ca psule omeprazole 20 mg capsule,delayed release TAKE ONE CAPSULE BY MOUTH TWICE DAILY omeprazole 20 mg capsule,delayed release TAKE ONE CAPSULE BY MOUTH TWICE DAILY completed omeprazole 20 MG Delayed Release Oral Capsule [place] [facility] [facility] Estarylla 0.25 mg-35 mcg tablet [id number] completed Estarylla 0.25 mg-35 mcg tablet [place] ([facility]) Ibuprofen 600 MG Oral Tablet ibuprofen 6 00 mg tablet TAKE ONE TABLET BY MOUTH TWICE DAILY ibuprofen 600 mg tablet TAKE ONE TABLET BY MOUTH TWICE DAILY completed ibuprofen 600 MG Ora l Tablet [place] ([facility]) Mirtazapine 45 MG Oral Tablet mirtazapin e 45 mg tablet TAKE ONE TABLET BY MOUTH AT BEDTIME mirtazapine 45 mg tablet TAKE ONE TABLET BY MOUTH AT BEDTIME completed mirtazapine 45 MG Oral Ta blet [place] ([facility]) chlorhexidine gluconate 1.2 MG/ML Mouthw jude chlorhexidine gluconate 0.12 % mouthwash STARTING 06/05/20 SWISH AND SPIT FIVE TO 10 MILLILITERS THREE TIMES DAILY chlorhexidine gluconate 0.12 % mouthwash STARTING 06/05/20 SWISH AND SPIT FIVE TO 10 MILLILITERS THREE TIMES DAILY completed chlorhexidine gluconate 1.2 MG/ML Mouthwash [place] ([facility]) Prednisone 20 MG Oral Tablet prednisone 20 mg tablet prednisone 20 mg tablet completed prednisone 20 MG Oral Tablet [place] ([facility]) quetiapine 25 MG Oral Tablet quetiapine 25 mg tablet TAKE 1 OR 2 TABLETS BY MOUTH AT BEDTIME NEEDED FOR SLEEP quetiapine 25 mg tablet TAKE 1 OR 2 TABL ETS BY MOUTH AT BEDTIME NEEDED FOR SLEEP completed quetiapine 25 MG Oral Tablet [place] ([facility]) Mirtazapine 45 MG Oral Tablet mirtazapin e 45 mg tablet TAKE ONE TABLET BY MOUTH AT BEDTIME mirtazapine 45 mg tablet TAKE ONE TABLET BY MOUTH AT BEDTIME completed mirtazapine 45 MG Oral Ta blet [place] ([facility]) Magnesium Hydroxide 80 MG/ML Oral Suspen mariam Milk of Magnesia 400 mg/5 mL oral suspension TAKE 45 MILLILITERS BY MOUTH 1-2 DAYS BEFORE COLONSOSCOPY PREP Milk of Magnesia 400 mg/5 mL oral suspension TAKE 45 MILLILITERS BY MOUTH 1-2 DAYS BEFORE COLONSOSCOPY PREP completed magnesium hydroxide 80 MG/ML Oral Suspension [place] ([facility]) Prednisone 20 MG Oral Tablet prednisone 20 mg tablet prednisone 20 mg tablet completed prednisone 20 MG Oral Tablet [place] ([facility]) POLYETHYLENE GLYCOL 3350 105 MG/ML / Pot assium Chloride 0.07088 MEQ/ML / Sodium Bicarbonate 0.017 MEQ/ML / Sodium Chloride 0.0479 MEQ/ML Oral Solution [GaviLyte-N] GaviLyte-N 420 gram oral solution GaviLyte-N 420 gram oral solution completed polyeth ylene glycol 3350 849572 MG / potassium chloride 1480 MG / sodium bicarbonate 5720 MG / sodium chloride 91896 MG Powder for Oral Solution [GaviLyte-N] [place] ([facility]) chlorhexidine gluconate 1.2 MG/ML Mouthw jude chlorhexidine gluconate 0.12 % mouthwash STARTING 06/05/20 SWISH AND SPIT FIVE TO 10 MILLILITERS THREE TIMES DAILY chlorhexidine gluconate 0.12 % mouthwash STARTING 06/05/20 SWISH AND SPIT FIVE TO 10 MILLILITERS THREE TIMES DAILY completed chlorhexidine gluconate 1.2 MG/ML Mouthwash [place] ([facility]) quetiapine 25 MG Oral Tablet quetiapine 25 mg tablet TAKE 1 OR 2 TABLETS BY MOUTH AT BEDTIME NEEDED FOR SLEEP quetiapine 25 mg tablet TAKE 1 OR 2 TABL ETS BY MOUTH AT BEDTIME NEEDED FOR SLEEP completed quetiapine 25 MG Oral Tablet [place] ([facility]) Acetaminophen 325 MG / Hydrocodone Trey trate 5 MG Oral Tablet hydrocodone 5 mg- acetaminophen 325 mg tablet hydrocodone 5 mg-acetaminophen 325 mg tablet completed acetaminophen 325 MG / hydrocodone bitartrate 5 MG Oral Tablet [place] ([facility]) Azithromycin 250 MG Oral Tablet azithrom ycin 250 mg tablet TAKE 2 TABLETS BY MOUTH ON DAY 1, THEN TAKE 1 TABLET DAILY ON DAYS 2-5 azithromycin 250 mg tablet TAKE 2 TABLETS BY MOUTH ON DAY 1, THEN TAKE 1 TABLET DAILY ON DAYS 2-5 completed azithromycin 250 MG Oral Tablet [place] ([facility]) Mirtazapine 45 MG Oral Tablet mirtazapin e 45 mg tablet TAKE ONE TABLET BY MOUTH AT BEDTIME mirtazapine 45 mg tablet TAKE ONE TABLET BY MOUTH AT BEDTIME completed mirtazapine 45 MG Oral Ta blet [place] ([facility]) POLYETHYLENE GLYCOL 3350 105 MG/ML / Pot assium Chloride 0.92416 MEQ/ML / Sodium Bicarbonate 0.017 MEQ/ML / Sodium Chloride 0.0479 MEQ/ML Oral Solution [GaviLyte-N] GaviLyte-N 420 gram oral solution GaviLyte-N 420 gram oral solution completed polyeth ylene glycol 3350 536584 MG / potassium chloride 1480 MG / sodium bicarbonate 5720 MG / sodium chloride 54464 MG Powder for Oral Solution [GaviLyte-N] [place] ([facility]) Prednisone 20 MG Oral Tablet prednisone 20 mg tablet prednisone 20 mg tablet completed prednisone 20 MG Oral Tablet [place] ([facility]) Dicyclomine Hydrochloride 20 MG Oral Tab let dicyclomine 20 mg tablet TAKE ONE TABLET BY MOUTH FOUR TIMES DAILY NEEDED, 30 MINUTES PRIOR TO MEALS dicyclomine 20 mg tablet TAKE ONE TABLET BY MOUTH FOUR TIMES DAILY NEEDED, 30 MINUTES PRIOR TO MEALS completed dicyclomine hydrochloride 20 MG Oral Tablet [place] ([facility]) Insurance Providers Payer name Policy type / Coverage type Policy ID Covered green party ID Covered green party's relationship to [place] Policy [place] Plan Information [facility] Health Maintenance [facility] ([facility]) [id number] Self [id number] [facility] Maintenance [facility] ([facility]) [id number] Self [id number] [facility] Maintenance [facility] ([facility]) [id number] Self [id number] Managed Care - Community Plan [facility] P [id number] S [id number] [facility] COMM[facility]ITY [facility] [id number] SP [id number] Medicaid S [id number] S [id number] [facility] I [id number] Self [id number] MEDICAID [id number] SP [id number] Managed Care - Community Plan [facility] P [id number] S [id number] Medicaid S [id number] S [id number] MEDICAID M [id number] Self [id number] [facility] I [id number] Self [id number] Managed Care - Community Plan [facility] P [id number] S [id number] Managed Care - Community Plan [facility] P [id number] S [id number] Managed Care - [facility] Community Plan P [id number] S [id number] Medicaid S [id number] S [id number] Managed Care - [facility] Community Plan P [id number] S [id number] Medicaid S [id number] S [id number] SELF PAY UNAVAILABLE SP UNAVAILA BLE Medicaid Dental O [id number] S [id number] UN COMMUNITY PLAN MCDO [id number] SP [id number] [facility] COMMUNITY PL[facility] [id number] SP [id number] Medicaid S [id number] S [id number] [facility](MCAID) O [id number] S [id number] [facility] [id number] SP [id number] [facility] Health Maintenance Organization (O) [id number] Self [id number] MEDICAID M [id number] S [id number] MEDICAID [id number] SP [id number] Managed Care - Community Plan [facility] P [id number] S [id number] [facility] Health Maintenance Organization (O) [id number] Self [id number] Self Pay P [id number] S [id number] SELF PAY ONLY [id number] SP [id number] [facility] Health Maintenance Organization (O) [id number] Self [id number] [facility] Commercial [id number] Self [id number] [facility] Health Maintenance Organization (HMO) [id number] Self [id number] [facility] Health Maintenance Organization ([facility]) [id number] Self [id number] [facility] Health Maintenance Organization (HMO) [id number] Self D Managed Care [facility] [id number] S [id number] Problems, Conditions, and Diagnoses Code Display Name Description Problem Type Effective Dates Data Source(s) [id number] 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 Problem 11/14/2020 12:00:00 AM EDT [place] ([facility]) [id number] Hemorrhoids Hemorrhoids Problem 11/14/2020 12:00:00 AM EDT [place] ([facility]) [id number] Polyp of colon Polyp of Colon Problem 11/14/2020 12:00: 00 AM EDT [place] ([facility]) [id number] 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 Problem 11/14/2020 12:00:00 AM EDT [place] ([facility]) 11904744 Hemorrhoids Hemorrhoids Problem 11/14/2020 12:00:00 AM EDT [place] ([facility]) [id number] Polyp of colon Polyp of Colon Problem 11/14/2020 12:00: 00 AM EDT [place] ([facility]) [id number] Nicotine dependence Nicotine Dependence Problem 1 05:42:59 PM EDT [place] ([facility]) [id number] Nicotine dependence Nicotine Dependence Problem 1 05:42:59 PM EDT [place] ([facility]) 67473494 Nicotine dependence Nicotine Dependence Problem 1 05:42:59 PM EDT [place] ([facility]) 85572775 Nicotine dependence Nicotine Dependence Problem 1 05:42:59 PM EDT [place] ([facility]) 44526083 Nicotine dependence Nicotine Dependence Problem 1 05:42:59 PM EDT [place] ([facility]) 83928306 Nicotine dependence Nicotine Dependence Problem 1 05:42:59 PM EDT [place] ([facility]) 15426303 Nicotine dependence Nicotine Dependence Problem 1 05:42:59 PM EDT [place] ([facility]) 40215947 Nicotine dependence Nicotine Dependence Problem 1 05:42:59 PM EDT [place] ([facility]) 70235257 Nicotine dependence Nicotine Dependence Problem 1 05:42:59 PM EDT [place] ([facility]) 496564751 Increased frequency of urination Increased Frequ ency of Urination Problem 02/22/2020 12:00:00 AM EDT - 11/14/2020 12:00:00 AM ED T [place] ([facility]) [id number] Increased frequency of urination Increased Frequ ency of Urination Problem 02/22/2020 12:00:00 AM EDT - 11/14/2020 12:00:00 AM ED T [place] ([facility]) [id number] Clinical finding Clinical Finding Problem 020 12:00:00 AM EDT - 07/11/2020 12:00:00 AM EST [place] ([facility]) [id number] Clinical finding Clinical Finding Problem 020 12:00:00 AM EDT - 07/11/2020 12:00:00 AM EST [place] ([facility]) [id number] Clinical finding Clinical Finding Problem 020 12:00:00 AM EDT - 07/11/2020 12:00:00 AM EST [place] ([facility]) [id number] Clinical finding Clinical Finding Problem 020 12:00:00 AM EDT - 07/11/2020 12:00:00 AM EST [place] ([facility]) [id number] Clinical finding Clinical Finding Problem 020 12:00:00 AM EDT - 07/11/2020 12:00:00 AM EST [place] ([facility]) [id number] Clinical finding Clinical Finding Problem 020 12:00:00 AM EDT - 07/11/2020 12:00:00 AM EST [place] ([facility]) [id number] Clinical finding Clinical Finding Problem 020 12:00:00 AM EDT - 07/11/2020 12:00:00 AM EST [place] ([facility]) [id number] Finding of esophagus Finding of Esophagus Problem 08/04/2019 12:00:00 AM EST - 10/03/2020 12:00:00 AM EST [place] ([facility]) [id number] Finding of esophagus Finding of Esophagus Problem 08/04/2019 12:00:00 AM EST - 10/03/2020 12:00:00 AM EST [place] ([facility]) [id number] Finding of esophagus Finding of Esophagus Problem 08/04/2019 12:00:00 AM EST - 10/03/2020 12:00:00 AM EST [place] ([facility]) [id number] Dental caries on smooth surface penetrat ing into pulp Dental Caries on Smooth Surface Penetrating into Pulp Problem 019 12:00:00 AM EST - 11/14/2020 12:00:00 AM EDT [place] ([facility]) [id number] Dental caries on smooth surface penetrat ing into pulp Dental Caries on Smooth Surface Penetrating into Pulp Problem 019 12:00:00 AM EST - 11/14/2020 12:00:00 AM EDT [place] ([facility]) [id number] Cough Cough Problem 02/24/2018 12:0 0:00 AM EDT - 11/14/2020 12:00:00 AM EDT [place] ([facility]) [id number] Cough Cough Problem 02/24/2018 12:0 0:00 AM EDT - 11/14/2020 12:00:00 AM EDT [place] ([facility]) [id number] Evaluation finding Evaluation Finding Problem 12:00:00 AM EST - 07/11/2020 12:00:00 AM EST [place] ([facility]) [id number] Evaluation finding Evaluation Finding Problem 12:00:00 AM EST - 07/11/2020 12:00:00 AM EST [place] ([facility]) [id number] Evaluation finding Evaluation Finding Problem 12:00:00 AM EST - 07/11/2020 12:00:00 AM EST [place] ([facility]) [id number] Evaluation finding Evaluation Finding Problem 12:00:00 AM EST - 07/11/2020 12:00:00 AM EST [place] ([facility]) [id number] Evaluation finding Evaluation Finding Problem 12:00:00 AM EST - 07/11/2020 12:00:00 AM EST [place] ([facility]) [id number] Evaluation finding Evaluation Finding Problem 12:00:00 AM EST - 07/11/2020 12:00:00 AM EST [place] ([facility]) [id number] Hemorrhage of rectum and anus Hemorrhage of Rectum and Anus Problem 06/18/2016 12:00:00 AM EST - 11/14/2020 12:00:00 AM EDT [place] ([facility]) 04634459 Abdominal pain Abdominal Pain Problem 06/18/2016 12:00:00 AM EST - 11/14/2020 12:00:00 AM EDT [place] ([facility]) [id number] Evaluation finding Evaluation Finding Problem 12:00:00 AM EST - 07/11/2020 12:00:00 AM EST [place] ([facility]) [id number] Hemorrhage of rectum and anus Hemorrhage of Rectum and Anus Problem 06/18/2016 12:00:00 AM EST - 11/14/2020 12:00:00 AM EDT [place] ([facility]) 89111184 Abdominal pain Abdominal Pain Problem 06/18/2016 12:00:00 AM EST - 11/14/2020 12:00:00 AM EDT [place] ([facility]) [id number] Finding related to sleep Finding Related to Sleep Prob davis 05/28/2016 12:00:00 AM EDT - 10/03/2020 12:00:00 AM EST [place] ([facility]) [id number] Finding related to sleep Finding Related to Sleep Prob davis 05/28/2016 12:00:00 AM EDT - 10/03/2020 12:00:00 AM EST [place] ([facility]) [id number] Finding related to sleep Finding Related to Sleep Prob davis 05/28/2016 12:00:00 AM EDT - 10/03/2020 12:00:00 AM EST [place] ([facility]) [id number] Stool color abnormal Stool Color Abnormal Problem 07/17/2015 12:00:00 AM EST - 11/14/2020 12:00:00 AM EDT [place] ([facility]) [id number] Stool color abnormal Stool Color Abnormal Problem 07/17/2015 12:00:00 AM EST - 11/14/2020 12:00:00 AM EDT [place] ([facility]) [id number] Influenza vaccine needed Influenza Vaccine Needed Pro blem 05/29/2015 12:00:00 AM EDT - 11/14/2020 12:00:00 AM EDT [place] ([facility]) [id number] Severe obesity Severe Obesity Problem 5 12:00:00 AM EDT - 11/14/2020 12:00:00 AM EDT [place] ([facility]) [id number] Influenza vaccine needed Influenza Vaccine Needed Pro blem 05/29/2015 12:00:00 AM EDT - 11/14/2020 12:00:00 AM EDT [place] ([facility]) [id number] Severe obesity Severe Obesity Problem 5 12:00:00 AM EDT - 11/14/2020 12:00:00 AM EDT [place] ([facility]) Surgeries/Procedures No Information Results ID Date Data Source [id number] 12/11/2020 12:00:00 AM EDT [facility] Name Value Range Interpretation Code Description Data Ankita rce(s) Supporting Document(s) SARS-CoV2 Rapid Antigen Negative [facility] This lab was ordered by [facility] and reported by [facility]. ID Date Data Source [id number] 11/14/2020 02:30:00 PM EDT [place] ([facility]) Name Value Range Interpretation Code Description Data Ankita rce(s) Supporting Document(s) ferritin 28 NG/mL 8-252 Ferritin [place] ([facility]) ID Date Data Source [id number] 11/14/2020 02:30:00 PM EDT [place] ([facility]) Name Value Range Interpretation Code Description Data Ankita rce(s) Supporting Document(s) vitamin B12 level 455 pg/mL Vitamin B12 Level [place] ([facility]) folate 3.4 NG/mL Folate [place] ([facility]) ID Date Data Source [id number] 11/14/2020 02:30:00 PM EDT [place] ([facility]) Name Value Range Interpretation Code Description Data Ankita rce(s) Supporting Document(s) thyroid stimulating hormone 1.580 uIU/mL 0.358-3.740 Thyroid Stimulating Hormone [place] ([facility]) free T4 1.04 NG/dL 0.76-1.46 Free T4 [place] ([facility]) ID Date Data Source [id number] 11/14/2020 02:30:00 PM EDT [place] ([facility]) Name Value Range Interpretation Code Description Data Ankita rce(s) Supporting Document(s) iron (fe) 156 ug/dL 50-170 Iron (Fe) [place] ([facility]) total iron binding capacity 403 ug/dL 250-450 Total Ir on Binding Capacity [place] ([facility]) percent saturation 38.7 % 13.2-45.0 Percent Saturatio n [place] ([facility]) ID Date Data Source [id number] 11/14/2020 02:30:00 PM [facility] Name Value Range Interpretation Code Description Data Ankita rce(s) Supporting Document(s) triglycerides level 101 mg/dL <150 Triglycerides [place] vladimir [place] ([facility]) cholesterol level 172 mg/dL <200 Cholesterol Level [place] ([facility]) Cholesterol in LDL [Mass/volume] in Serum or Plasma 89 mg/dL <1 00 LDL Cholesterol [place] ([facility]) non-HDL-C 109 mg/dL Non-hdl-c [place] ([facility]) HDL cholesterol 63 mg/dL >40 HDL Cholesterol AT[facility] NA ([facility]) cholesterol risk ratio <5 Cholesterol R isk Ratio [place] ([facility]) ID Date Data Source [id number] 11/14/2020 02:30:00 PM EDT [place] ([facility]) Name Value Range Interpretation Code Description Data Ankita rce(s) Supporting Document(s) glucose, fasting 91 mg/dL 70-100 Glucose, Fasting AT [facility]) blood urea nitrogen 16 mg/dL 7-18 Blood Urea Nitro gen [place] ([facility]) creatinine for GFR 0.70 mg/dL 0.55-1.30 Creatinine for GF R [place] ([facility]) glomerular filtration rate > 60.0 >60 Glomerula r Filtration Rate [place] ([facility]) sodium level 140 mEq/L 136-145 Sodium Level [place] ([facility]) chloride level 107 mEq/L 98-107 Chloride Level [place] ([facility]) potassium serum 4.8 mEq/L 3.5-5.1 Potassium Serum [facility] ([facility]) carbon dioxide level 24 mEq/L 21-32 Carbon Dioxide Level [place] ([facility]) anion gap 9 mEq/L 8-16 Anion Gap [place] ([facility]) AST/SGOT 13 U/L 7-37 AST/SGOT [place] ([facility]) calcium level 9.6 mg/dL 8.5-10.1 Calcium Level [place] ( [facility]) alkaline phosphatase 121 U/L 45-117 Above high normal Alkaline Phosphatase [place] ([facility]) bilirubin,total 0.3 mg/dL 0.2-1.0 Bilirubin,total [facility] ([facility]) ALT/SGPT 22 U/L 12-78 ALT/SGPT [place] ([facility]) total protein 7.0 gm/dL 6.4-8.2 Total Protein [place] ( [facility]) albumin 3.5 gm/dL 3.2-5.2 Albumin [place] ([facility]) albumin/globulin ratio 1.2-2.2 Below low normal Albumin /globulin Ratio [place] ([facility]) ID Date Data Source [id number] 11/14/2020 02:30:00 PM EDT [place] ([facility]) Name Value Range Interpretation Code Description Data Ankita rce(s) Supporting Document(s) white blood count 8.9 10 4.0-10.0 White Blood Count [place] ([facility]) red blood count 4.70 10 4.00-5.40 Red Blood Count [facility] ([facility]) hematocrit 44.8 % 36.0-47.0 Hematocrit [place] ([facility]) hemoglobin 14.4 g/dL 12.0-15.5 Hemoglobin [place] ([facility]) mean corpuscular volume 95.3 fL 80.0-96.0 Mean Corpusc ular Volume [place] ([facility]) mean corpuscular hemoglobin 30.6 pg 27.0-33.0 Mean Cor puscular Hemoglobin [place] ([facility]) mean corpuscular HGB conc 32.1 g/dL 32.0-36.5 Mean Corpu scular HGB Conc [place] ([facility]) red cell distribution width 13.1 % 11.5-14.5 Red Cell Distribution Width [place] ([facility]) platelet count, automated 358 10 150-450 Platelet C ount, Automated [place] ([facility]) neutrophils % 55.8 % 36.0-66.0 Neutrophils % [place] ( [facility]) lymph % 33.7 % 24.0-44.0 Lymph % [place] ([facility]) mono % 6.8 % 2.0-8.0 Republic % [place] ([facility]) baso % 0.7 % 0.0-1.0 Baso % [place] ([facility]) eos % 2.7 % 0.0-3.0 Eos % [place] ([facility]) immature granulocyte % 0.3 % 0-3.0 Immature Gran ulocyte % [place] ([facility]) nucleated red blood cell % 0.0 % 0-0 Nucleated Red Blood Cell % [place] ([facility]) lymph # 3.0 10 1.5-5.0 Lymph # [place] ([facility]) neutrophils # 4.9 10 1.5-8.5 Neutrophils # [place] ( [facility]) mono # 0.6 10 0.0-0.8 Republic # [place] ([facility]) eos # 0.2 10 0.0-0.5 Eos # [place] ([facility]) baso # 0.1 10 0.0-0.2 Baso # [place] ([facility]) ID Date Data Source [id number] 09/29/2020 08:30:00 AM EST [facility] Name Value Range Interpretation Code Description Data Ankita rce(s) Supporting Document(s) SARS coronavirus 2 RNA Not Detected [facility] This lab was ordered by [facility] and reported by [facility]. ID Date Data Source [id number] 06/18/2020 12:39:00 PM EST [facility] ([facility], [facility]) Name Value Range Interpretation Code Description Data Ankita rce(s) Supporting Document(s) Bacteria identified in Throat by Culture Laboratory test result [facility] ([facility], [facility]) see progress note ID Date Data Source [id number] 05/13/2020 01:48:00 AM EDT [facility] Name Value Range Interpretation Code Description Data Ankita rce(s) Supporting Document(s) HCT 43.7 % 36.0-47.0 N [facility] HGB 14.4 g/dL 12.0-15.5 N [facility] MCH 33.0 G/DL pg 32.0-36.5 N [facility] MCHC 30.1 PG % 27.0-33.0 N [facility] PLATELETS 366 10 10*3/mm3 150-450 N [facility] RBC 4.78 10 10*6/mm3 4.00-5.40 N [facility] RDW 12.7 % 11.5-14.5 N [facility] WBC TOTAL 12.6 4.0-10.0 H [facility] ID Date Data Source [id number] 05/13/2020 01:48:00 AM EDT [facility] Name Value Range Interpretation Code Description Data Ankita rce(s) Supporting Document(s) BG FASTING 89 mg/dL 70-100 N [facility] y [facility] Procedure Social History Code Duration Value Status Description Data Source(s ) Smoking 09/06/2020 12:00:00 AM EST Current Smoker completed Curre nt Smoker eCW1 ([facility]) Smoking 06/22/2020 12:00:00 AM EST Current Smoker completed Curre nt Smoker eCW1 ([facility]) Vital Signs ID Date Data Source UNK Name Value Range Interpretation Code Description Data Source(s) Diastolic blood pressure 101 mm[Hg] 101 mm[Hg] MEGHA ([facility]) Body height 66 [in_i] 66 [in_i] MEGHA ([facility]) Body mass index (BMI) [Ratio] 53 kg/m2 53 kg/ m2 MEGHA ([facility]) Systolic blood pressure 132 mm[Hg] 132 mm[Hg] A [facility] ([facility]) Body weight 5257.6 [oz_av] 5257.6 [oz_av] ATHEN A ([facility]) Body mass index (BMI) [Ratio] 53 kg/m2 53 kg/ m2 MEGHA ([facility]) Diastolic blood pressure 101 mm[Hg] 101 mm[Hg] MEGHA ([facility]) Body height 66 [in_i] 66 [in_i] MEGHA ([facility]) Systolic blood pressure 132 mm[Hg] 132 mm[Hg] A [facility] ([facility]) Body weight 5257.6 [oz_av] 5257.6 [oz_av] ATHEN A ([facility]) Diastolic blood pressure 76 mm[Hg] 76 mm[Hg] MEGHA ([facility]) Body height 66 [in_i] 66 [in_i] MEGHA ([facility]) Body mass index (BMI) [Ratio] 53.5 kg/m2 53.5 k g/m2 MEGHA ([facility]) Systolic blood pressure 111 mm[Hg] 111 mm[Hg] A THENA ([facility]) Body weight 5304 [oz_av] 5304 [oz_av] MEGHA ([facility]) Diastolic blood pressure 76 mm[Hg] 76 mm[Hg] MEGHA ([facility]) Body height 66 [in_i] 66 [in_i] MEGHA ([facility]) Body mass index (BMI) [Ratio] 53.5 kg/m2 53.5 k g/m2 MEGHA ([facility]) Systolic blood pressure 111 mm[Hg] 111 mm[Hg] A THENA ([facility]) Body weight 5304 [oz_av] 5304 [oz_av] MEGHA ([facility]) Diastolic blood pressure 76 mm[Hg] 76 mm[Hg] MEGHA ([facility]) Body height 66 [in_i] 66 [in_i] MEGHA ([facility]) Body mass index (BMI) [Ratio] 53.5 kg/m2 53.5 k g/m2 MEGHA ([facility]) Systolic blood pressure 111 mm[Hg] 111 mm[Hg] A THENA ([facility]) Body weight 5304 [oz_av] 5304 [oz_av] MEGHA ([facility]) Diastolic blood pressure 81 mm[Hg] 81 mm[Hg] MEGHA ([facility]) Body height 66 [in_i] 66 [in_i] MEGHA ([facility]) Body mass index (BMI) [Ratio] 53.6 kg/m2 53.6 k g/m2 MEGHA ([facility]) Systolic blood pressure 134 mm[Hg] 134 mm[Hg] A THENA ([facility]) Body weight 5312 [oz_av] 5312 [oz_av] MEGHA ([facility]) Diastolic blood pressure 81 mm[Hg] 81 mm[Hg] MEGHA ([facility]) Body height 66 [in_i] 66 [in_i] MEGHA ([facility]) Body mass index (BMI) [Ratio] 53.6 kg/m2 53.6 k g/m2 MEGHA ([facility]) Systolic blood pressure 134 mm[Hg] 134 mm[Hg] A [place] ([facility]) Body weight 5312 [oz_av] 5312 [oz_av] MEGHA ([facility]) Diastolic blood pressure 81 mm[Hg] 81 mm[Hg] MEGHA ([facility]) Diastolic blood pressure 81 mm[Hg] 81 mm[Hg] MEGHA ([facility]) Body height 66 [in_i] 66 [in_i] MEGHA ([facility]) Body mass index (BMI) [Ratio] 53.6 kg/m2 53.6 k g/m2 MEGHA ([facility]) Systolic blood pressure 134 mm[Hg] 134 mm[Hg] A [place] ([facility]) Body weight 5312 [oz_av] 5312 [oz_av] MEGHA ([facility]) Body height 66 [in_i] 66 [in_i] MEGHA ([facility]) Body mass index (BMI) [Ratio] 53.6 kg/m2 53.6 k g/m2 MEGHA ([facility]) Systolic blood pressure 134 mm[Hg] 134 mm[Hg] A [place] ([facility]) Body weight 5312 [oz_av] 5312 [oz_av] MEGHA ([facility]) Systolic blood pressure 134 mm[Hg] 134 mm[Hg] A [place] ([facility]) Diastolic blood pressure 81 mm[Hg] 81 mm[Hg] MEGHA ([facility]) Body height 66 [in_i] 66 [in_i] MEGHA ([facility]) Body mass index (BMI) [Ratio] 53.6 kg/m2 53.6 k g/m2 MEGHA ([facility]) Body weight 5312 [oz_av] 5312 [oz_av] MEGHA ([facility]) Diastolic blood pressure 81 mm[Hg] 81 mm[Hg] MEGHA ([facility]) Body height 66 [in_i] 66 [in_i] MEGHA ([facility]) Body mass index (BMI) [Ratio] 53.6 kg/m2 53.6 k g/m2 MEGHA ([facility]) Systolic blood pressure 134 mm[Hg] 134 mm[Hg] A THENA ([facility]) Body weight 5312 [oz_av] 5312 [oz_av] MEGHA ([facility]) Diastolic blood pressure 81 mm[Hg] 81 mm[Hg] MEGHA ([facility]) Body height 66 [in_i] 66 [in_i] MEGHA ([facility]) Body mass index (BMI) [Ratio] 53.6 kg/m2 53.6 k g/m2 MEGHA ([facility]) Systolic blood pressure 134 mm[Hg] 134 mm[Hg] A THENA ([facility]) Body weight 5312 [oz_av] 5312 [oz_av] MEGHA ([facility]) Body weight 326.8 [lb_av] 326.8 [lb_av] eCW1 ([facility]) Body height 66 [in_i] 66 [in_i] eCW1 ([facility]) Body mass index (BMI) [Ratio] 52.74 kg/m2 52.74 kg/m2 eCW1 ([facility]) Systolic blood pressure 124 mm[Hg] 124 mm[Hg] e CW1 ([facility]) Diastolic blood pressure 76 mm[Hg] 76 mm[Hg] eCW1 ([facility]) Diastolic blood pressure 80 mm[Hg] 80 mm[Hg] MEDENT ([facility], [facility]) Systolic blood pressure 136 mm[Hg] 136 mm[Hg] M EDENT ([facility] Heart rate 67 /min 67 /min MEDENT ([facility], [facility]) Body height 66 [in_i] 66 [in_i] MEDENT ([facility], [facility]) 5'6" Body mass index (BMI) [Ratio] 46.0 kg/m2 46.0 k g/m2 MEDENT ([facility]) Respiratory rate 16 /min 16 /min MEDENT ( [facility]) Oxygen saturation in Arterial blood by Pulse oximetry 99 % 99 % MEDENT ([facility]) Body temperature 98.0 [degF] 98.0 [degF] MEDENT ([facility]) Body weight 285.00 [lb_av] 285.00 [lb_av] MEDEN T ([facility]) Patient Treatment Plan of Care Planned Activity Planned Date Details Description Data Source (s) Sprintec 28 0.25-35 MG-MCG 06/22/2020 12:00:00 AM EST eCW1 ([facility]) Sprintec 28 0.25-35 MG-MCG 06/22/2020 12:00:00 AM EST eCW1 ([facility]) Sulfamethoxazole 800 MG / Trimethoprim 160 MG Oral Tablet MEGHA ([facility]) Sertraline 100 MG Oral Tablet MEGHA ([facility]) quetiapine 25 MG Oral Tablet MEGHA ([facility]) Prednisone 20 MG Oral Tablet MEGHA ([facility]) Omeprazole 20 MG Delayed Release Oral Capsule MEGHA ([facility]) Mirtazapine 45 MG Oral Tablet MEGHA ([facility]) Magnesium Hydroxide 80 MG/ML Oral Suspension MEGHA ([facility]) ipratropium bromide 42 mcg (0.06 %) nasal spray MEGHA ([facility]) Ibuprofen 600 MG Oral Tablet MEGHA ([facility]) Acetaminophen 325 MG / Hydrocodone Bitartrate 5 MG Oral Tablet MEGHA ([facility]) POLYETHYLENE GLYCOL 3350 105 MG/ML / Pot assium Chloride 0.84292 MEQ/ML / Sodium Bicarbonate 0.017 MEQ/ML / Sodium Chloride 0.0479 MEQ/ML Oral Solution [GaviLyte-N] MEGHA ([facility]) fluticasone propionate 50 mcg/actuation nasal spray,suspension MEGHA ([facility]) Estarylla 0.25 mg-35 mcg tablet MEGHA ([facility]) Doxycycline Monohydrate 100 MG Oral Capsule MEGHA ([facility]) Dicyclomine Hydrochloride 20 MG Oral Tablet MEGHA ([facility]) chlorhexidine gluconate 1.2 MG/ML Mouthwash MEGHA ([facility]) benzonatate 100 MG Oral Capsule MEGHA ([facility]) Azithromycin 250 MG Oral Tablet MEGHA ([facility]) Sulfamethoxazole 800 MG / Trimethoprim 160 MG Oral Tablet MEGHA ([facility]) Sertraline 100 MG Oral Tablet MEGHA ([facility]) quetiapine 25 MG Oral Tablet MEGHA ([facility]) Prednisone 20 MG Oral Tablet MEGHA ([facility]) Omeprazole 20 MG Delayed Release Oral Capsule MEGHA ([facility]) Mirtazapine 45 MG Oral Tablet MEGHA ([facility]) Magnesium Hydroxide 80 MG/ML Oral Suspension MEGHA ([facility]) ipratropium bromide 42 mcg (0.06 %) nasal spray MEGHA ([facility]) Ibuprofen 600 MG Oral Tablet MEGHA ([facility]) Acetaminophen 325 MG / Hydrocodone Bitartrate 5 MG Oral Tablet MEGHA ([facility]) POLYETHYLENE GLYCOL 3350 105 MG/ML / Pot assium Chloride 0.94849 MEQ/ML / Sodium Bicarbonate 0.017 MEQ/ML / Sodium Chloride 0.0479 MEQ/ML Oral Solution [GaviLyte-N] MEGHA ([facility]) fluticasone propionate 50 mcg/actuation nasal spray,suspension MEGHA ([facility]) Estarylla 0.25 mg-35 mcg tablet MEGHA ([facility]) Doxycycline Monohydrate 100 MG Oral Capsule MEGHA ([facility]) Dicyclomine Hydrochloride 20 MG Oral Tablet MEGHA ([facility]) chlorhexidine gluconate 1.2 MG/ML Mouthwash MEGHA ([facility]) benzonatate 100 MG Oral Capsule MEGHA ([facility]) Azithromycin 250 MG Oral Tablet MEGHA ([facility]) Sulfamethoxazole 800 MG / Trimethoprim 160 MG Oral Tablet MEGHA ([facility]) quetiapine 25 MG Oral Tablet MEGHA ([facility]) Prednisone 20 MG Oral Tablet MEGHA ([facility]) Mirtazapine 45 MG Oral Tablet MEGHA ([facility]) Ibuprofen 600 MG Oral Tablet MEGHA ([facility]) Acetaminophen 325 MG / Hydrocodone Bitartrate 5 MG Oral Tablet MEGHA ([facility]) Doxycycline Monohydrate 100 MG Oral Capsule MEGAH ([facility]) benzonatate 100 MG Oral Capsule MEGHA ([facility]) Azithromycin 250 MG Oral Tablet MEGHA ([facility]) Prednisone 20 MG Oral Tablet MEGHA ([facility]) Prednisone 20 MG Oral Tablet MEGHA ([facility]) Prednisone 20 MG Oral Tablet MEGHA ([facility]) Prednisone 20 MG Oral Tablet MEGHA ([facility])
--- OUTSIDE RECORDS SUMMARY | 2021-07-07 22:08 | CCD ---
Author Author [facility] Organization [facility] Address Unknown Phone Unavailable Care Team Providers Care Family Resource Specialist Name Role Phone Tatiana Figueroa NP Unavailable Unavailable Tatiana Figueroa NP Unavailable Unavailable Tatiana Figueroa NP Unavailable Unavailable Tatiana Figueroa NP Unavailable Unavailable Tatiana Figueroa NP Unavailable Unavailable Tatiana Figueroa NP Unavailable Unavailable Tatiana Figueroa NP Unavailable Unavailable Figueroa, Tatiana CLAMP FORKLIFT OPERATOR Unavailable Unavailable Figueroa, Tatiana CLAMP FORKLIFT OPERATOR Unavailable Unavailable Figueroa, Tatiana CLAMP FORKLIFT OPERATOR Unavailable Unavailable Figueroa, Tatiana CLAMP FORKLIFT OPERATOR Unavailable Unavailable Figueroa, Tatiana CLAMP FORKLIFT OPERATOR Unavailable Unavailable Figueroa, Tatiana CLAMP FORKLIFT OPERATOR Unavailable Unavailable Atkinson, E Sarai CLAMP FORKLIFT OPERATOR Unavailable Unavailable Atkinson, E Sarai CLAMP FORKLIFT OPERATOR Unavailable Unavailable Atkinson, E Sarai CLAMP FORKLIFT OPERATOR Unavailable Unavailable Atkinson, E Sarai CLAMP FORKLIFT OPERATOR Unavailable Unavailable Atkinson, E Sarai CLAMP FORKLIFT OPERATOR Unavailable Unavailable Atkinson, E Sarai CLAMP FORKLIFT OPERATOR Unavailable Unavailable Atkinson, E Sarai CLAMP FORKLIFT OPERATOR Unavailable Unavailable Atkinson, E Sarai CLAMP FORKLIFT OPERATOR Unavailable Unavailable Atkinson, E Sarai CLAMP FORKLIFT OPERATOR Unavailable Unavailable Atkinson, E Sarai CLAMP FORKLIFT OPERATOR Unavailable Unavailable Aktinson, E Sarai CLAMP FORKLIFT OPERATOR Unavailable Unavailable Atkinson, E Sarai CLAMP FORKLIFT OPERATOR Unavailable Unavailable Atkinson, E Sarai CLAMP FORKLIFT OPERATOR Unavailable Unavailable Atkinson, E Sarai CLAMP FORKLIFT OPERATOR Unavailable Unavailable Atkinson, E Sarai CLAMP FORKLIFT OPERATOR Unavailable Unavailable Atkinson, E Sarai CLAMP FORKLIFT OPERATOR Unavailable Unavailable Atkinson, E Sarai CLAMP FORKLIFT OPERATOR Unavailable Unavailable Atkinson, E Sarai CLAMP FORKLIFT OPERATOR Unavailable Unavailable Atkinson, E Sarai CLAMP FORKLIFT OPERATOR Unavailable Unavailable Atkinson, E Sarai CLAMP FORKLIFT OPERATOR Unavailable Unavailable Atkinson, E Sarai CLAMP FORKLIFT OPERATOR Unavailable Unavailable Atkinson, E Sarai CLAMP FORKLIFT OPERATOR Unavailable Unavailable Atkinson, E Sarai CLAMP FORKLIFT OPERATOR Unavailable Unavailable Barbara, Angely Unavailable Unavailable Barbara, Angely Unavailable Unavailable Barbara, Angely Unavailable Unavailable Barbara, Angely Unavailable Unavailable Barbara, Angely Unavailable Unavailable Barbara, Angely Unavailable Unavailable Barbara, Angely Unavailable Unavailable Barbara, Angely Unavailable Unavailable Barbara, Angely Unavailable Unavailable Barbara, Agnely Unavailable Unavailable Barbara, Angely Unavailable Unavailable Barbara, [...] Angely Unavailable Unavailable Barbara, Angely Unavailable Unavailable Fostveit, Noni Unavailable Unavailable Fostveit, [...] is protected by Article 27-F of the [facility] Public Health law. If you continue you may have access to information: Regarding HIV / AIDS; Provided by facilities licensed or operated by the [facility] Office of Mental Health; or Provided by the [facility] Office for People With Developmental Disabilities. If such information is present, then the following [facility] mandated warning applies: This information has [...] law may result in a fine or skilled nursing sentence or both. A general authorization for the release of medical or other information is NOT sufficient authorization for further disc losure. Family History Family Member Name Family Member Gender Family Member Status Date o f Status Description Data Source(s) Unknown Male Problem MEDENT ([facility]) Unknown Unknown Problem [facility] MGM Unknown Male Problem MED[facility] ([facility] Encounters Encounter Providers Location Date Indications Data Source(s ) Noni Landeros LCSW-R: [address] [place] [address], Ph. Attender: Noni Holley [place] - [facility] Medical 12/04/2020 12:00:00 AM KATERYNA [place] ([facility]) Kiki Jimenez MD: [address], [place] [address], Ph. Attender: Kiki Jimenez [facility] Medical 11/14/2020 12:00:00 AM EDT [place] ([facility]) Kiki Jimenez MD: [address], [place] [address], Ph. Attender: Kiki Jimenez [facility] Medical 11/14/2020 12:00:00 AM EDT [place] ([facility]) SOFY VelascoW-R: [address], [place] [address], Ph. Attender: Noni Holley [facility] Medical 10/22/2020 12:00:00 AM EDT [place] ([facility]) SOFY VelascoW-R: [address], [place] [address], Ph. Attender: Noni Holley [facility] Medical 10/22/2020 12:00:00 AM EDT [place] ([facility]) SOFY VelascoW-R: [address], [place] [address], Ph. Attender: Noni Holley [facility] Medical 10/22/2020 12:00:00 AM EDT [place] ([facility]) RENAE SofiaBC: [address], [place] [address], Ph. Attender: Sarai Atkinson NP [facility] Medical 10/03/2020 12:00:00 AM EST [place] ([facility]) RENAE SofiaBC: [address], [place] [address], Ph. Attender: Sarai Atkinson NP [facility] Medical 10/03/2020 12:00:00 AM EST [place] ([facility]) Sarai Atkinson, ANP-BC: [address], [place] [address], Ph. Attender: Sarai Atkinson NP [facility] Medical 10/03/2020 12:00:00 AM EST [place] ([facility]) Unknown [address] [facility] [address] 10/02/2020 12:00:00 AM EST eCW1 ([facility]) SOFY VelascoW-R: [address], [facility] [address], Ph. Attender: Noni Holley [facility] Medical 09/03/2020 12:00:00 AM EST [place] ([facility]) SOFY VelascoW-R: [address], [place] [address], Ph. Attender: Noni Holley [facility] Medical 09/03/2020 12:00:00 AM EST [place] ([facility]) SOFY VelascoW-R: [address], [place] [address], Ph. Attender: Noni Holley [facility] Medical 09/03/2020 12:00:00 AM EST [place] ([facility]) SOFY VelascoW-R: [address], [place] [address], Ph. Attender: Noni Holley [facility] Medical 09/03/2020 12:00:00 AM EST Abdominal Pain [place] ([facility]) Abdominal Pain SOFY VelascoW-R: [address], [place] [address], Ph. Attender: Noni Holley [facility] Medical 09/03/2020 12:00:00 AM EST [place] ([facility]) SOFY VelascoW-R: [address], [place] [address], Ph. Attender: Noni Hernandezrosario [facility] Medical 08/13/2020 12:00:00 AM EST [place] ([facility]) SOFY VelascoW-R: [address], [place] [address], Ph. Attender: Noni Jolynntonyarosario [facility] Medical 08/13/2020 12:00:00 AM EST [place] ([facility]) SOFY VelascoW-R: [address], [place] [address], Ph. Attender: Noniyong Holley [facility] Medical 08/13/2020 12:00:00 AM EST [place] ([facility]) SOFY VelascoW-R: [address], [place] [address], Ph. Attender: Noni Holley [facility] Medical 08/13/2020 12:00:00 AM EST [place] ([facility]) SOFY VelascoW-R: [address], [place] [address], Ph. Attender: Noniyong Holley [facility] Medical 08/13/2020 12:00:00 AM EST [place] ([facility]) SOFY VelascoW-R: [address], [place] [address], Ph. Attender: Noni Holley [facility] Medical 08/13/2020 12:00:00 AM EST [place] ([facility]) RENAE SofiaBC: [address], [place] [address], Ph. Attender: Sarai Atkinson NP [facility] Medical 07/11/2020 12:00:00 AM EST [place] ([facility]) RENAE SofiaBC: [address], [place] [address], Ph. Attender: Sarai Atkinson NP [facility] Medical 07/11/2020 12:00:00 AM EST [place] ([facility]) RENAE SofiaBC: [address], [place] [address], Ph. Attender: Sarai Atkinson NP [facility] Medical 07/11/2020 12:00:00 AM EST [place] ([facility]) RENAE SofiaBC: [address], [place] [address], Ph. Attender: Sarai Atkinson NP [facility] Medical 07/11/2020 12:00:00 AM EST [place] ([facility]) RENAE SofiaBC: [address], [place] [address], Ph. Attender: Sarai Atkinson NP [facility] Medical 07/11/2020 12:00:00 AM EST [place] ([facility]) RENAE SofiaBC: [address], [place] [address], Ph. Attender: Sarai Atkinson NP [facility] Medical 07/11/2020 12:00:00 AM EST [place] ([facility]) Sarai Atkinson, ANP-BC: [address], [place] [address], Ph. Attender: Sarai Atkinson NP [facility] Medical 07/11/2020 12:00:00 AM EST [place] ([facility]) SOFY VelascoW-R: [address], [place] [address], Ph. Attender: Noni Holley [facility] Medical 06/25/2020 12:00:00 AM EST [place] ([facility]) SOFY VelascoW-R: [address], [place] [address], Ph. Attender: Noni Holley [facility] Medical 06/25/2020 12:00:00 AM EST [place] ([facility]) SOFY VelascoW-R: [address], [place] [address], Ph. Attender: Noni Holley [facility] Medical 06/25/2020 12:00:00 AM EST [place] ([facility]) Noni Landeros LCSW-R: [address], [place] [address], Ph. Attender: Noni Holley [facility] Medical 06/25/2020 12:00:00 AM EST [place] ([facility]) Noni Landeros LCSW-R: [address], [place] [address], Ph. Attender: Noni Holley [facility] Medical 06/25/2020 12:00:00 AM EST [place] ([facility]) Noni Landeros LCSW-R: [address], [place] [address], Ph. Attender: Noniyong Holley [facility] Medical 06/25/2020 12:00:00 AM EST [place] ([facility]) SOFY VelascoW-R: [address], [place] [address], Ph. Attender: Noni Holley [facility] Medical 06/25/2020 12:00:00 AM EST [place] ([facility]) SOFY VelascoW-R: [address], [place] [address], Ph. Attender: Noni Leydi [facility] Medical 06/25/2020 12:00:00 AM EST [place] ([facility]) ( [facility] [address] [place] [address] 06/22/2020 12:00:00 AM EST eCW1 ([facility]) Outpatient Attender: Tatiana Roe mirna 06/18/2020 12:00:00 PM EST MEDENT ([facility]) Outpatient FP 06/12/2020 10:22:00 AM EST [facility] Noni Landeros LCSW-R: [address], [place] [address], Ph. Attender: Noni Holley [facility] Medical 06/11/2020 12:00:00 AM EST [place] ([facility]) Noni Landeros LCSW-R: [address], [place] [address], Ph. Attender: Noni Holley [facility] Medical 06/11/2020 12:00:00 AM EST [place] ([facility]) SOFY VelascoW-R: [address], [place] [address], Ph. Attender: Noni Holley [facility] Medical 06/11/2020 12:00:00 AM EST [place] ([facility]) SOFY VelascoW-R: [address], [place] [address], Ph. Attender: Noni Holley [facility] Medical 06/11/2020 12:00:00 AM EST [place] ([facility]) SOFY VelascoW-R: [address], [place] [address], Ph. Attender: Noni Holley [facility] Medical 06/11/2020 12:00:00 AM EST [place] ([facility]) SOFY VelascoW-R: [address], [place] [address], Ph. Attender: Noni Holley [facility] Medical 06/11/2020 12:00:00 AM EST [place] ([facility]) SOFY VelascoW-R: [address], [place] [address], Ph. Attender: Noni Holley [facility] Medical 06/11/2020 12:00:00 AM EST [place] ([facility]) SOFY VelascoW-R: [address], [place] [address], Ph. Attender: Noni Holley [facility] Medical 06/11/2020 12:00:00 AM EST [place] ([facility]) SOFY VelascoW-R: [address], [place] [address], Ph. Attender: Noni Holley [place] - [facility] Medical 06/11/2020 12:00:00 AM EST [place] ([facility]) Outpatient FP 05/23/2020 08:01:00 PM EDT [facility] Outpatient FP 05/21/2020 04:19:02 PM EDT [facility] Outpatient FP 05/18/2020 12:18:02 PM EDT [facility] Outpatient FP 05/16/2020 11:16:00 AM EDT [facility] Outpatient FP 05/16/2020 11:15:59 AM EDT [facility] Outpatient FP 05/11/2020 09:12:00 AM EDT [facility] Outpatient FP 05/09/2020 07:30:01 AM EDT [facility] Immunizations Vaccine Date Status Description Data Source(s) COVID-19 VACCINE Johnathan 12/31/2020 12:00:00 AM EDT completed [facility] Vaccine Series Complete: YESThis Data wa s Submitted to [facility] [employer]. Medications Medication Brand Name Start Date Product Form Dose Route Admi nistrative Instructions Pharmacy Instructions Status Indications Reaction Description Data Source(s) Sprintec 28 0.25-35 MG-MCG Sprintec 28 0.25-35 MG-MCG 2019 12:00:00 AM EST 1.0 {tablet} active Sprintec 28 0.25-35 MG-MCG eCW1 ([facility]) Sprintec 28 0.25-35 MG-MCG Sprintec 28 0.25-35 MG-MCG 2019 12:00:00 AM EST 1.0 {tablet} active Sprintec 28 0.25-35 MG-MCG eCW1 ([facility]) Prednisone 20 MG Oral Tablet Prednisone 06/18/2020 12:00:00 AM EST active MEDENT ([facility], [facility]) quetiapine 25 MG Oral Tablet quetiapine 25 mg tablet TAKE 1 OR 2 TABLETS BY MOUTH AT BEDTIME NEEDED FOR SLEEP quetiapine 25 mg tablet TAKE 1 OR 2 TABL ETS BY MOUTH AT BEDTIME NEEDED FOR SLEEP completed quetiapine 25 MG Oral Tablet [place] ([facility]) fluticasone propionate 50 mcg/actuation nasal spray,suspension [id number] completed fluticasone propionate 0.05 MG/ACTUAT Metered Dose Nasal [place] ([facility]) ipratropium bromide 42 mcg (0.06 %) nasal spray [id number] completed ipratropium bromide 0.042 MG/ACTUAT Metered Dose Nasal [place] ([facility]) Doxycycline Monohydrate 100 MG Oral Caps ule doxycycline monohydrate 100 mg capsule TAKE ONE CAPSULE BY MOUTH EVERY 12 HOURS doxycycline monohydrate 100 mg capsule TAKE ONE CAPSULE BY MOUTH EVERY 12 HOURS completed doxycycline monohydrate 100 MG Oral Capsule [place] ([facility]) Sulfamethoxazole 800 MG / Trimethoprim 1 60 MG Oral Tablet sulfamethoxazole 800 mg-trimethoprim 160 mg tablet sulfamethoxazole 800 mg-trimethoprim 160 mg tablet completed sulfame thoxazole 800 MG / trimethoprim 160 MG Oral Tablet [facility]) Prednisone 20 MG Oral Tablet prednisone 20 mg tablet prednisone 20 mg tablet completed prednisone 20 MG Oral Tablet [place] ([facility]) Prednisone 20 MG Oral Tablet prednisone 20 mg tablet prednisone 20 mg tablet completed prednisone 20 MG Oral Tablet [place] ([facility]) Omeprazole 20 MG Delayed Release Oral Ca psule omeprazole 20 mg capsule,delayed release TAKE ONE CAPSULE BY MOUTH TWICE DAILY omeprazole 20 mg capsule,delayed release TAKE ONE CAPSULE BY MOUTH TWICE DAILY completed omeprazole 20 MG Delayed Release Oral Capsule [place] ([facility]) benzonatate 100 MG Oral Capsule benzonat ate 100 mg capsule TAKE ONE CAPSULE BY MOUTH THREE TIMES DAILY NEEDED FOR COUGH benzonatate 100 mg capsule TAKE ONE CAPSULE BY MOUTH THREE TIMES DAILY NEEDED FOR COUGH completed benzonatate 100 MG Oral Capsule [place] ([facility]) Magnesium Hydroxide 80 MG/ML Oral Suspen mariam Milk of Magnesia 400 mg/5 mL oral suspension TAKE 45 MILLILITERS BY MOUTH 1-2 DAYS BEFORE COLONSOSCOPY PREP Milk of Magnesia 400 mg/5 mL oral suspension TAKE 45 MILLILITERS BY MOUTH 1-2 DAYS BEFORE COLONSOSCOPY PREP completed magnesium hydroxide 80 MG/ML Oral Suspension [facility]) fluticasone propionate 50 mcg/actuation nasal spray,suspension [id number] completed fluticasone propionate 0.05 MG/ACTUAT Metered Dose Nasal [place] [facility]) ipratropium bromide 42 mcg (0.06 %) nasal spray [id number] completed ipratropium bromide 0.042 MG/ACTUAT Metered Dose Nasal [place] ([facility]) Sulfamethoxazole 800 MG / Trimethoprim 1 60 MG Oral Tablet sulfamethoxazole 800 mg-trimethoprim 160 mg tablet sulfamethoxazole 800 mg-trimethoprim 160 mg tablet completed sulfame thoxazole 800 MG / trimethoprim 160 MG Oral Tablet [place] ([facility]) Doxycycline Monohydrate 100 MG Oral Caps ule doxycycline monohydrate 100 mg capsule TAKE ONE CAPSULE BY MOUTH EVERY 12 HOURS doxycycline monohydrate 100 mg capsule TAKE ONE CAPSULE BY MOUTH EVERY 12 HOURS completed doxycycline monohydrate 100 MG Oral Capsule [place] ([facility]) Azithromycin 250 MG Oral Tablet azithrom ycin 250 mg tablet TAKE 2 TABLETS BY MOUTH ON DAY 1, THEN TAKE 1 TABLET DAILY ON DAYS 2-5 azithromycin 250 mg tablet TAKE 2 TABLETS BY MOUTH ON DAY 1, THEN TAKE 1 TABLET DAILY ON DAYS 2-5 completed azithromycin 250 MG Oral Tablet [place] ([facility]) benzonatate 100 MG Oral Capsule benzonat ate 100 mg capsule TAKE ONE CAPSULE BY MOUTH THREE TIMES DAILY NEEDED FOR COUGH benzonatate 100 mg capsule TAKE ONE CAPSULE BY MOUTH THREE TIMES DAILY NEEDED FOR COUGH completed benzonatate 100 MG Oral Capsule [place] ([facility]) Prednisone 20 MG Oral Tablet prednisone 20 mg tablet prednisone 20 mg tablet completed prednisone 20 MG Oral Tablet [facility]) Prednisone 20 MG Oral Tablet prednisone 20 mg tablet prednisone 20 mg tablet completed prednisone 20 MG Oral Tablet [place] ([facility]) Sertraline 100 MG Oral Tablet sertraline 100 mg tablet sertr katelin 100 mg tablet completed sertraline 100 MG Oral Tablet [place] ([facility]) Azithromycin 250 MG Oral Tablet azithrom ycin 250 mg tablet TAKE 2 TABLETS BY MOUTH ON DAY 1, THEN TAKE 1 TABLET DAILY ON DAYS 2-5 azithromycin 250 mg tablet TAKE 2 TABLETS BY MOUTH ON DAY 1, THEN TAKE 1 TABLET DAILY ON DAYS 2-5 completed azithromycin 250 MG Oral Tablet [place] ([facility]) Dicyclomine Hydrochloride 20 MG Oral Tab let dicyclomine 20 mg tablet TAKE ONE TABLET BY MOUTH FOUR TIMES DAILY NEEDED, 30 MINUTES PRIOR TO MEALS dicyclomine 20 mg tablet TAKE ONE TABLET BY MOUTH FOUR TIMES DAILY NEEDED, 30 MINUTES PRIOR TO MEALS completed dicyclomine hydrochloride 20 MG Oral Tablet [place] ([facility]) Ibuprofen 600 MG Oral Tablet ibuprofen 6 00 mg tablet TAKE ONE TABLET BY MOUTH TWICE DAILY ibuprofen 600 mg tablet TAKE ONE TABLET BY MOUTH TWICE DAILY completed ibuprofen 600 MG Ora l Tablet [place] ([facility]) Estarylla 0.25 mg-35 mcg tablet [id number] completed Estarylla 0.25 mg-35 mcg tablet [place] ([facility]) benzonatate 100 MG Oral Capsule benzonat ate 100 mg capsule TAKE ONE CAPSULE BY MOUTH THREE TIMES DAILY NEEDED FOR COUGH benzonatate 100 mg capsule TAKE ONE CAPSULE BY MOUTH THREE TIMES DAILY NEEDED FOR COUGH completed benzonatate 100 MG Oral Capsule [place] ([facility]) Sulfamethoxazole 800 MG / Trimethoprim 1 60 MG Oral Tablet sulfamethoxazole 800 mg-trimethoprim 160 mg tablet sulfamethoxazole 800 mg-trimethoprim 160 mg tablet completed sulfame thoxazole 800 MG / trimethoprim 160 MG Oral Tablet [place] ([facility]) Doxycycline Monohydrate 100 MG Oral Caps ule doxycycline monohydrate 100 mg capsule TAKE ONE CAPSULE BY MOUTH EVERY 12 HOURS doxycycline monohydrate 100 mg capsule TAKE ONE CAPSULE BY MOUTH EVERY 12 HOURS completed doxycycline monohydrate 100 MG Oral Capsule [place] ([facility]) Ibuprofen 600 MG Oral Tablet ibuprofen 6 00 mg tablet TAKE ONE TABLET BY MOUTH TWICE DAILY ibuprofen 600 mg tablet TAKE ONE TABLET BY MOUTH TWICE DAILY completed ibuprofen 600 MG Ora l Tablet [place] ([facility]) Acetaminophen 325 MG / Hydrocodone Trey trate 5 MG Oral Tablet hydrocodone 5 mg- acetaminophen 325 mg tablet hydrocodone 5 mg-acetaminophen 325 mg tablet completed acetaminophen 325 MG / hydrocodone bitartrate 5 MG Oral Tablet [place] ([facility]) Acetaminophen 325 MG / Hydrocodone Trey trate 5 MG Oral Tablet hydrocodone 5 mg- acetaminophen 325 mg tablet hydrocodone 5 mg-acetaminophen 325 mg tablet completed acetaminophen 325 MG / hydrocodone bitartrate 5 MG Oral Tablet [place] ([facility]) Sertraline 100 MG Oral Tablet sertraline 100 mg tablet sertr katelin 100 mg tablet completed sertraline 100 MG Oral Tablet [place] ([facility]) Omeprazole 20 MG Delayed Release Oral Ca psule omeprazole 20 mg capsule,delayed release TAKE ONE CAPSULE BY MOUTH TWICE DAILY omeprazole 20 mg capsule,delayed release TAKE ONE CAPSULE BY MOUTH TWICE DAILY completed omeprazole 20 MG Delayed Release Oral Capsule [place] ([facility]) Estarylla 0.25 mg-35 mcg tablet [id number] completed [place] 0.25 mg-35 mcg tablet [place] ([facility]) Ibuprofen 600 MG Oral Tablet ibuprofen 6 00 mg tablet TAKE ONE TABLET BY MOUTH TWICE DAILY ibuprofen 600 mg tablet TAKE ONE TABLET BY MOUTH TWICE DAILY completed ibuprofen 600 MG Ora l Tablet [place] ([facility]) Mirtazapine 45 MG Oral Tablet mirtazapin e 45 mg tablet TAKE ONE TABLET BY MOUTH AT BEDTIME mirtazapine 45 mg tablet TAKE ONE TABLET BY MOUTH AT BEDTIME completed mirtazapine 45 MG Oral Ta blet [place] ([facility]) chlorhexidine gluconate 1.2 MG/ML Mouthw jude chlorhexidine gluconate 0.12 % mouthwash STARTING 06/05/20 SWISH AND SPIT FIVE TO 10 MILLILITERS THREE TIMES DAILY chlorhexidine gluconate 0.12 % mouthwash STARTING 06/05/20 SWISH AND SPIT FIVE TO 10 MILLILITERS THREE TIMES DAILY completed chlorhexidine gluconate 1.2 MG/ML Mouthwash [place] ([facility]) Prednisone 20 MG Oral Tablet prednisone 20 mg tablet prednisone 20 mg tablet completed prednisone 20 MG Oral Tablet [place] ([facility]) quetiapine 25 MG Oral Tablet quetiapine 25 mg tablet TAKE 1 OR 2 TABLETS BY MOUTH AT BEDTIME NEEDED FOR SLEEP quetiapine 25 mg tablet TAKE 1 OR 2 TABL ETS BY MOUTH AT BEDTIME NEEDED FOR SLEEP completed quetiapine 25 MG Oral Tablet [place] ([facility]) Mirtazapine 45 MG Oral Tablet mirtazapin e 45 mg tablet TAKE ONE TABLET BY MOUTH AT BEDTIME mirtazapine 45 mg tablet TAKE ONE TABLET BY MOUTH AT BEDTIME completed mirtazapine 45 MG Oral Ta blet [place] ([facility]) Magnesium Hydroxide 80 MG/ML Oral Suspen mariam [...] completed prednisone 20 MG Oral Tablet [place] ([facility]) POLYETHYLENE GLYCOL 3350 105 MG/ML / Pot assium Chloride 0.31391 MEQ/ML / Sodium Bicarbonate 0.017 MEQ/ML / Sodium Chloride 0.0479 MEQ/ML Oral Solution [GaviLyte-N] GaviLyte-N 420 gram oral solution GaviLyte-N 420 gram oral solution completed polyeth ylene glycol 3350 287055 MG / potassium chloride 1480 MG / sodium bicarbonate 5720 MG / sodium chloride 25558 MG Powder for Oral Solution [GaviLyte-N] [place] ([facility]) chlorhexidine gluconate 1.2 MG/ML Mouthw jude chlorhexidine gluconate 0.12 % mouthwash STARTING 06/05/20 SWISH AND SPIT FIVE TO 10 MILLILITERS THREE TIMES DAILY chlorhexidine gluconate 0.12 % mouthwash STARTING 06/05/20 SWISH AND SPIT FIVE TO 10 MILLILITERS THREE TIMES DAILY completed chlorhexidine gluconate 1.2 MG/ML Mouthwash [place] ([facility]) quetiapine 25 MG Oral Tablet quetiapine 25 mg tablet TAKE 1 OR 2 TABLETS BY MOUTH AT BEDTIME NEEDED FOR SLEEP quetiapine 25 mg tablet TAKE 1 OR 2 TABL ETS BY MOUTH AT BEDTIME NEEDED FOR SLEEP completed quetiapine 25 MG Oral Tablet [place] ([facility]) Acetaminophen 325 MG / Hydrocodone Trey trate 5 MG Oral Tablet hydrocodone 5 mg- acetaminophen 325 mg tablet hydrocodone 5 mg-acetaminophen 325 mg tablet completed acetaminophen 325 MG / hydrocodone bitartrate 5 MG Oral Tablet [place] ([facility]) Azithromycin 250 MG Oral Tablet azithrom ycin 250 mg tablet TAKE 2 TABLETS BY MOUTH ON DAY 1, THEN TAKE 1 TABLET DAILY ON DAYS 2-5 azithromycin 250 mg tablet TAKE 2 TABLETS BY MOUTH ON DAY 1, THEN TAKE 1 TABLET DAILY ON DAYS 2-5 completed azithromycin 250 MG Oral Tablet [place] ([facility]) Mirtazapine 45 MG Oral Tablet mirtazapin e 45 mg tablet TAKE ONE TABLET BY MOUTH AT BEDTIME mirtazapine 45 mg tablet TAKE ONE TABLET BY MOUTH AT BEDTIME completed mirtazapine 45 MG Oral Ta blet [place] ([facility]) POLYETHYLENE GLYCOL 3350 105 MG/ML / Pot assium Chloride 0.96142 MEQ/ML / Sodium Bicarbonate 0.017 MEQ/ML / Sodium Chloride 0.0479 MEQ/ML Oral Solution [GaviLyte-N] GaviLyte-N 420 gram oral solution GaviLyte-N 420 gram oral solution completed polyeth ylene glycol 3350 197462 MG / potassium chloride 1480 MG / sodium bicarbonate 5720 MG / sodium chloride 60584 MG Powder for Oral Solution [GaviLyte-N] [place] ([facility]) Prednisone 20 MG Oral Tablet prednisone 20 mg tablet prednisone 20 mg tablet completed prednisone 20 MG Oral Tablet [place] ([facility]) Dicyclomine Hydrochloride 20 MG Oral Tab let dicyclomine 20 mg tablet TAKE ONE TABLET BY MOUTH FOUR TIMES DAILY NEEDED, 30 MINUTES PRIOR TO MEALS dicyclomine 20 mg tablet TAKE ONE TABLET BY MOUTH FOUR TIMES DAILY NEEDED, 30 MINUTES PRIOR TO MEALS completed dicyclomine hydrochloride 20 MG Oral Tablet [place] ([facility]) Insurance Providers Payer name Policy type / Coverage type Policy ID Covered libertarian ID Covered libertarian's relationship to [place] Policy [place] Plan Information [facility] Health Maintenance [facility] ([facility]) [id number] Self [id number] Counts include 234 beds at the [facility] Maintenance [facility] ([facility]) [id number] Self [id number] [facility] Maintenance [facility] ([facility]) [id number] Self [id number] Managed Care - Community Plan [facility] P [id number] S [id number] [facility] [id number] SP [id number] Medicaid S [id number] S [id number] [facility] I [id number] Self [id number] MEDICAID [id number] SP [id number] Managed Care - Community Plan [facility] P [id number] S [id number] Medicaid S [id number] S [id number] MEDICAID M [id number] Self [id number] [facility] I [id number] Self [id number] Managed Care - Community Plan [facility] P [id number] S [id number] Managed Care - Community Plan [facility] P [id number] S [id number] Managed Care - [facility] Community Plan P [id number] S [id number] Medicaid S [id number] S [id number] Managed Care - [facility] Community Plan P [id number] S [id number] Medicaid S [id number] S [id number] SELF PAY UNAVAILABLE SP UNAVAILA BLE Medicaid Dental O [id number] S [id number] COMMUNITY PLAN MCDO [id number] SP [id number] [facility] [id number] SP [id number] Medicaid S [id number] S [id number] [facility]CA[facility]) O [id number] S [id number] [facility] [id number] SP [id number] [facility] Health Maintenance Organization (O) [id number] Self [id number] MEDICAID M [id number] MEDICAID [id number] SP [id number] Managed Care - Community Plan [facility] P [id number] S [id number] [facility] Health Maintenance Organization (O) [id number] Self [id number] Self Pay P [id number] S [id number] SELF PAY ONLY [id number] SP [id number] [facility] Health Maintenance Organization (O) [id number] Self [id number] [facility] Commercial [id number] Self [id number] [facility] Health Maintenance Organization (HMO) [id number] Self [id number] [facility] Health Maintenance Organization ([facility]) [id number] Self [id number] [facility] Health Maintenance Organization (HMO) [id number] Self D Managed Care 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 Problem 11/14/2020 12:00:00 AM EDT [place] ([facility]) 09688646 Hemorrhoids Hemorrhoids Problem 11/14/2020 12:00:00 AM EDT [place] ([facility]) 89692575 Polyp of colon Polyp of Colon Problem 11/14/2020 12:00: 00 AM EDT [place] ([facility]) 76822160 Nicotine dependence Nicotine Dependence Problem 1 05:42:59 PM EDT [place] ([facility]) [id number] Nicotine dependence Nicotine Dependence Problem 1 05:42:59 PM EDT [place] ([facility]) 20130372 Nicotine dependence Nicotine Dependence Problem 1 05:42:59 PM EDT [place] ([facility]) 89489487 Nicotine dependence Nicotine Dependence Problem 1 05:42:59 PM EDT [place] ([facility]) 99984163 Nicotine dependence Nicotine Dependence Problem 1 05:42:59 PM EDT [place] ([facility]) 77314530 Nicotine dependence Nicotine Dependence Problem 1 05:42:59 PM EDT [place] ([facility]) 10527788 Nicotine dependence Nicotine Dependence Problem 1 05:42:59 PM EDT [place] ([facility]) 21079358 Nicotine dependence Nicotine Dependence Problem 1 05:42:59 PM EDT [place] ([facility]) 51301756 Nicotine dependence Nicotine Dependence Problem 1 05:42:59 PM EDT [place] ([facility]) 087099106 Increased frequency of urination Increased Frequ ency of Urination Problem 02/22/2020 12:00:00 AM EDT - 11/14/2020 12:00:00 AM ED T [place] ([facility]) [id number] Increased frequency of urination Increased Frequ ency of Urination Problem 02/22/2020 12:00:00 AM EDT - 11/14/2020 12:00:00 AM ED T [place] ([facility]) [id number] Clinical finding Clinical Finding Problem 020 12:00:00 AM EDT - 07/11/2020 12:00:00 AM EST [place] ([facility]) [id number] Clinical finding Clinical Finding Problem 020 12:00:00 AM EDT - 07/11/2020 12:00:00 AM EST [place] ([facility]) [id number] Clinical finding Clinical Finding Problem 020 12:00:00 AM EDT - 07/11/2020 12:00:00 AM EST [place] ([facility]) [id number] Clinical finding Clinical Finding Problem 020 12:00:00 AM EDT - 07/11/2020 12:00:00 AM EST [place] ([facility]) [id number] Clinical finding Clinical Finding Problem 020 12:00:00 AM EDT - 07/11/2020 12:00:00 AM EST [place] ([facility]) [id number] Clinical finding Clinical Finding Problem 020 12:00:00 AM EDT - 07/11/2020 12:00:00 AM EST [place] ([facility]) [id number] Clinical finding Clinical Finding Problem 020 12:00:00 AM EDT - 07/11/2020 12:00:00 AM EST [place] ([facility]) [id number] Finding of esophagus Finding of Esophagus Problem 08/04/2019 12:00:00 AM EST - 10/03/2020 12:00:00 AM EST [place] ([facility]) [id number] Finding of esophagus Finding of Esophagus Problem 08/04/2019 12:00:00 AM EST - 10/03/2020 12:00:00 AM EST [place] ([facility]) [id number] Finding of esophagus Finding of Esophagus Problem 08/04/2019 12:00:00 AM EST - 10/03/2020 12:00:00 AM EST [place] ([facility]) [id number] Dental caries on smooth surface penetrat ing into pulp Dental Caries on Smooth Surface Penetrating into Pulp Problem 019 12:00:00 AM EST - 11/14/2020 12:00:00 AM EDT [place] ([facility]) [id number] Dental caries on smooth surface penetrat ing into pulp Dental Caries on Smooth Surface Penetrating into Pulp Problem 019 12:00:00 AM EST - 11/14/2020 12:00:00 AM EDT [place] ([facility]) [id number] Cough Cough Problem 02/24/2018 12:0 0:00 AM EDT - 11/14/2020 12:00:00 AM EDT [place] ([facility]) [id number] Cough Cough Problem 02/24/2018 12:0 0:00 AM EDT - 11/14/2020 12:00:00 AM EDT [place] ([facility]) [id number] Evaluation finding Evaluation Finding Problem 12:00:00 AM EST - 07/11/2020 12:00:00 AM EST [place] ([facility]) [id number] Evaluation finding Evaluation Finding Problem 12:00:00 AM EST - 07/11/2020 12:00:00 AM EST [place] ([facility]) [id number] Evaluation finding Evaluation Finding Problem 12:00:00 AM EST - 07/11/2020 12:00:00 AM EST [place] ([facility]) [id number] Evaluation finding Evaluation Finding Problem 12:00:00 AM EST - 07/11/2020 12:00:00 AM EST [place] ([facility]) [id number] Evaluation finding Evaluation Finding Problem 12:00:00 AM EST - 07/11/2020 12:00:00 AM EST [place] ([facility]) [id number] Evaluation finding Evaluation Finding Problem 12:00:00 AM EST - 07/11/2020 12:00:00 AM EST [place] ([facility]) [id number] Hemorrhage of rectum and anus Hemorrhage of Rectum and Anus Problem 06/18/2016 12:00:00 AM EST - 11/14/2020 12:00:00 AM EDT [place] ([facility]) [id number] Abdominal pain Abdominal Pain Problem 06/18/2016 12:00:00 AM EST - 11/14/2020 12:00:00 AM EDT [place] ([facility]) [id number] Evaluation finding Evaluation Finding Problem 12:00:00 AM EST - 07/11/2020 12:00:00 AM EST [place] ([facility]) [id number] Hemorrhage of rectum and anus Hemorrhage of Rectum and Anus Problem 06/18/2016 12:00:00 AM EST - 11/14/2020 12:00:00 AM EDT [place] ([facility]) [id number] Abdominal pain Abdominal Pain Problem 06/18/2016 12:00:00 AM EST - 11/14/2020 12:00:00 AM EDT [place] ([facility]) [id number] Finding related to sleep Finding Related to Sleep Prob davis 05/28/2016 12:00:00 AM EDT - 10/03/2020 12:00:00 AM EST [place] ([facility]) [id number] Finding related to sleep Finding Related to Sleep Prob davis 05/28/2016 12:00:00 AM EDT - 10/03/2020 12:00:00 AM EST [place] ([facility]) [id number] Finding related to sleep Finding Related to Sleep Prob davis 05/28/2016 12:00:00 AM EDT - 10/03/2020 12:00:00 AM EST [place] ([facility]) [id number] Stool color abnormal Stool Color Abnormal Problem 07/17/2015 12:00:00 AM EST - 11/14/2020 12:00:00 AM EDT [place] ([facility]) [id number] Stool color abnormal Stool Color Abnormal Problem 07/17/2015 12:00:00 AM EST - 11/14/2020 12:00:00 AM EDT [place] ([facility]) [id number] Influenza vaccine needed Influenza Vaccine Needed Pro blem 05/29/2015 12:00:00 AM EDT - 11/14/2020 12:00:00 AM EDT [place] ([facility]) [id number] Severe obesity Severe Obesity Problem 5 12:00:00 AM EDT - 11/14/2020 12:00:00 AM EDT [place] ([facility]) [id number] Influenza vaccine needed Influenza Vaccine Needed Pro blem 05/29/2015 12:00:00 AM EDT - 11/14/2020 12:00:00 AM EDT [place] ([facility]) [id number] Severe obesity Severe Obesity Problem 5 12:00:00 AM EDT - 11/14/2020 12:00:00 AM EDT [place] ([facility]) Surgeries/Procedures No Information Results ID Date Data Source [id number] 12/11/2020 12:00:00 AM EDT [facility] Name Value Range Interpretation Code Description Data Ankita rce(s) Supporting Document(s) SARS-[facility]2 [facility] by [facility] and reported by [facility]. ID Date Data Source [id number] 11/14/2020 02:30:00 PM EDT [place] ([facility]) Name Value Range Interpretation Code Description Data Ankita rce(s) Supporting Document(s) ferritin 28 NG/mL 8-252 Ferritin [place] ([facility]) ID Date Data Source [id number] 11/14/2020 02:30:00 PM EDT [place] ([facility]) Name Value Range Interpretation Code Description Data Ankita rce(s) Supporting Document(s) vitamin B12 level 455 pg/mL Vitamin B12 Level [place] ([facility]) folate 3.4 NG/mL Folate [place] ([facility]) ID Date Data Source [id number] 11/14/2020 02:30:00 PM EDT [place] ([facility]) Name Value Range Interpretation Code Description Data Ankita rce(s) Supporting Document(s) thyroid stimulating hormone 1.580 uIU/mL 0.358-3.740 Thyroid Stimulating Hormone [place] ([facility]) free T4 1.04 NG/dL 0.76-1.46 Free T4 [place] ([facility]) ID Date Data Source [id number] 11/14/2020 02:30:00 PM EDT [place] ([facility]) Name Value Range Interpretation Code Description Data Ankita rce(s) Supporting Document(s) iron (fe) 156 ug/dL 50-170 Iron (Fe) [place] ([facility]) total iron binding capacity 403 ug/dL 250-450 Total Ir on Binding Capacity [place] ([facility]) percent saturation 38.7 % 13.2-45.0 Percent Saturatio n [place] ([facility]) ID Date Data Source [id number] 11/14/2020 02:30:00 [facility] Name Value Range Interpretation Code Description Data Ankita rce(s) Supporting Document(s) triglycerides level 101 mg/dL <150 Triglycerides [place] ([facility]) cholesterol level 172 mg/dL <200 Cholesterol Level [place] ([facility]) Cholesterol in LDL [Mass/volume] in Serum or Plasma 89 mg/dL <1 00 LDL Cholesterol [place] ([facility]) non-HDL-C 109 mg/dL Non-hdl-c [place] ([facility]) HDL cholesterol 63 mg/dL >40 HDL Cholesterol ATHE NA ([facility]) cholesterol risk ratio <5 Cholesterol R isk Ratio [place] ([facility]) ID Date Data Source [id number] 11/14/2020 02:30:00 PM EDT [place] ([facility]) Name Value Range Interpretation Code Description Data Ankita rce(s) Supporting Document(s) glucose, fasting 91 mg/dL 70-100 Glucose, Fasting AT [facility]) blood urea nitrogen 16 mg/dL 7-18 Blood Urea Nitro gen [place] ([facility]) creatinine for GFR 0.70 mg/dL 0.55-1.30 Creatinine for GF R [place] ([facility]) glomerular filtration rate > 60.0 >60 Glomerula r Filtration Rate [place] ([facility]) sodium level 140 mEq/L 136-145 Sodium Level [place] ([facility]) chloride level 107 mEq/L 98-107 Chloride Level [place] ([facility]) potassium serum 4.8 mEq/L 3.5-5.1 Potassium Serum [place] ([facility]) carbon dioxide level 24 mEq/L 21-32 Carbon Dioxide Level [place] ([facility]) anion gap 9 mEq/L 8-16 Anion Gap [place] ([facility]) AST/SGOT 13 U/L 7-37 AST/SGOT [place] ([facility]) calcium level 9.6 mg/dL 8.5-10.1 Calcium Level [place] ( [facility]) alkaline phosphatase 121 U/L 45-117 Above high normal Alkaline Phosphatase [place] ([facility]) bilirubin,total 0.3 mg/dL 0.2-1.0 Bilirubin,total [place] ([facility]) ALT/SGPT 22 U/L 12-78 ALT/SGPT [place] ([facility]) total protein 7.0 gm/dL 6.4-8.2 Total Protein [place] ( [facility]) albumin 3.5 gm/dL 3.2-5.2 Albumin [place] ([facility]) albumin/globulin ratio 1.2-2.2 Below low normal Albumin /globulin Ratio [place] ([facility]) ID Date Data Source [id number] 11/14/2020 02:30:00 PM EDT [place] ([facility]) Name Value Range Interpretation Code Description Data Ankita rce(s) Supporting Document(s) white blood count 8.9 10 4.0-10.0 White Blood Count [place] ([facility]) red blood count 4.70 10 4.00-5.40 Red Blood Count [facility] ([facility]) hematocrit 44.8 % 36.0-47.0 Hematocrit [place] ([facility]) hemoglobin 14.4 g/dL 12.0-15.5 Hemoglobin [place] ([facility]) mean corpuscular volume 95.3 fL 80.0-96.0 Mean Corpusc ular Volume [place] ([facility]) mean corpuscular hemoglobin 30.6 pg 27.0-33.0 Mean Cor puscular Hemoglobin [place] ([facility]) mean corpuscular HGB conc 32.1 g/dL 32.0-36.5 Mean Corpu scular HGB Conc [place] ([facility]) red cell distribution width 13.1 % 11.5-14.5 Red Cell Distribution Width [place] ([facility]) platelet count, automated 358 10 150-450 Platelet C ount, Automated [place] ([facility]) neutrophils % 55.8 % 36.0-66.0 Neutrophils % [place] ( [facility]) lymph % 33.7 % 24.0-44.0 Lymph % [place] ([facility]) mono % 6.8 % 2.0-8.0 [place] % [place] ([facility]) baso % 0.7 % 0.0-1.0 Baso % [place] ([facility]) eos % 2.7 % 0.0-3.0 Eos % [place] ([facility]) immature granulocyte % 0.3 % 0-3.0 Immature Gran ulocyte % [place] ([facility]) nucleated red blood cell % 0.0 % 0-0 Nucleated Red Blood Cell % [place] ([facility]) lymph # 3.0 10 1.5-5.0 Lymph # [place] ([facility]) neutrophils # 4.9 10 1.5-8.5 Neutrophils # [place] ( [facility]) mono # 0.6 10 0.0-0.8 [place] # [place] ([facility]) eos # 0.2 10 0.0-0.5 Eos # [place] ([facility]) baso # 0.1 10 0.0-0.2 Baso # [place] ([facility]) ID Date Data Source [id number] 09/29/2020 08:30:00 AM EST [facility] Name Value Range Interpretation Code Description Data Ankita rce(s) Supporting Document(s) SARS coronavirus 2 RNA Not Detected [facility] This lab was ordered by [facility] and reported by [facility]. ID Date Data Source [id number] 06/18/2020 12:39:00 PM EST [facility] ([facility], [facility]) Name Value Range Interpretation Code Description Data Ankita rce(s) Supporting Document(s) Bacteria identified in Throat by Culture Laboratory test result [facility] ([facility], [facility]) see progress note ID Date Data Source [id number] 05/13/2020 01:48:00 AM EDT [facility] Name Value Range Interpretation Code Description Data Ankita rce(s) Supporting Document(s) HCT 43.7 % 36.0-47.0 N [facility] HGB 14.4 g/dL 12.0-15.5 N [facility] MCH 33.0 G/DL pg 32.0-36.5 N [facility] MCHC 30.1 PG % 27.0-33.0 N [facility] PLATELETS 366 10 10*3/mm3 150-450 N [facility] RBC 4.78 10 10*6/mm3 4.00-5.40 N [facility] RDW 12.7 % 11.5-14.5 N [facility] WBC TOTAL 12.6 4.0-10.0 H [facility] ID Date Data Source [id number] 05/13/2020 01:48:00 AM EDT [facility] Name Value Range Interpretation Code Description Data Ankita rce(s) Supporting Document(s) BG FASTING 89 mg/dL 70-100 N [facility] Procedure Social History Code Duration Value Status Description Data Source(s ) Smoking 09/06/2020 12:00:00 AM EST Current Smoker completed Curre nt Smoker eCW1 ([facility]) Smoking 06/22/2020 12:00:00 AM EST Current Smoker completed Curre nt Smoker eCW1 ([facility]) Vital Signs ID Date Data Source UNK Name Value Range Interpretation Code Description Data Source(s) Diastolic blood pressure 101 mm[Hg] 101 mm[Hg] MEGHA ([facility]) Body height 66 [in_i] 66 [in_i] MEGHA ([facility]) Body mass index (BMI) [Ratio] 53 kg/m2 53 kg/ m2 MEGHA ([facility]) Systolic blood pressure 132 mm[Hg] 132 mm[Hg] A [facility] ([facility]) Body weight 5257.6 [oz_av] 5257.6 [oz_av] ATHEN A ([facility]) Body mass index (BMI) [Ratio] 53 kg/m2 53 kg/ m2 MEGHA ([facility]) Diastolic blood pressure 101 mm[Hg] 101 mm[Hg] MEGHA ([facility]) Body height 66 [in_i] 66 [in_i] MEGHA ([facility]) Systolic blood pressure 132 mm[Hg] 132 mm[Hg] A [facility] ([facility]) Body weight 5257.6 [oz_av] 5257.6 [oz_av] ATHEN A ([facility]) Diastolic blood pressure 76 mm[Hg] 76 mm[Hg] MEGHA ([facility]) Body mass index (BMI) [Ratio] 53.5 kg/m2 53.5 k g/m2 MEGHA ([facility]) Systolic blood pressure 111 mm[Hg] 111 mm[Hg] [facility]) Body weight 5304 [oz_av] 5304 [oz_av] MEGHA ([facility]) Body height 66 [in_i] 66 [in_i] MEGHA ([facility]) Diastolic blood pressure 76 mm[Hg] 76 mm[Hg] MEGHA ([facility]) Body height 66 [in_i] 66 [in_i] MEGHA ([facility]) Body mass index (BMI) [Ratio] 53.5 kg/m2 53.5 k g/m2 MEGHA ([facility]) Systolic blood pressure 111 mm[Hg] 111 mm[Hg] A THENA ([facility]) Body weight 5304 [oz_av] 5304 [oz_av] MEGHA ([facility]) Diastolic blood pressure 76 mm[Hg] 76 mm[Hg] MEGHA ([facility]) Body height 66 [in_i] 66 [in_i] MEGHA ([facility]) Body mass index (BMI) [Ratio] 53.5 kg/m2 53.5 k g/m2 MEGHA ([facility]) Systolic blood pressure 111 mm[Hg] 111 mm[Hg] A THENA ([facility]) Body weight 5304 [oz_av] 5304 [oz_av] MEGHA ([facility]) Diastolic blood pressure 81 mm[Hg] 81 mm[Hg] MEGHA ([facility]) Body height 66 [in_i] 66 [in_i] MEGHA ([facility]) Body mass index (BMI) [Ratio] 53.6 kg/m2 53.6 k g/m2 MEGHA ([facility]) Systolic blood pressure 134 mm[Hg] 134 mm[Hg] A THENA ([facility]) Body weight 5312 [oz_av] 5312 [oz_av] MEGHA ([facility]) Diastolic blood pressure 81 mm[Hg] 81 mm[Hg] MEGHA ([facility]) Body height 66 [in_i] 66 [in_i] MEGHA ([facility]) Body mass index (BMI) [Ratio] 53.6 kg/m2 53.6 k g/m2 MEGHA ([facility]) Systolic blood pressure 134 mm[Hg] 134 mm[Hg] A [facility]) Body weight 5312 [oz_av] 5312 [oz_av] MEGHA ([facility]) Diastolic blood pressure 81 mm[Hg] 81 mm[Hg] MEGHA ([facility]) Body height 66 [in_i] 66 [in_i] MEGHA ([facility]) Body mass index (BMI) [Ratio] 53.6 kg/m2 53.6 k g/m2 MEGHA ([facility]) Systolic blood pressure 134 mm[Hg] 134 mm[Hg] A [facility]) Body weight 5312 [oz_av] 5312 [oz_av] MEGHA ([facility]) Diastolic blood pressure 81 mm[Hg] 81 mm[Hg] MEGHA ([facility]) Diastolic blood pressure 81 mm[Hg] 81 mm[Hg] MEGHA ([facility]) Body height 66 [in_i] 66 [in_i] MEGHA ([facility]) Body mass index (BMI) [Ratio] 53.6 kg/m2 53.6 k g/m2 MEGHA ([facility]) Systolic blood pressure 134 mm[Hg] 134 mm[Hg] A THENA ([facility]) Body weight 5312 [oz_av] 5312 [oz_av] MEGHA ([facility]) Systolic blood pressure 134 mm[Hg] 134 mm[Hg] A THENA ([facility]) Body weight 5312 [oz_av] 5312 [oz_av] MEGHA ([facility]) Body height 66 [in_i] 66 [in_i] MEGHA ([facility]) Body mass index (BMI) [Ratio] 53.6 kg/m2 53.6 k g/m2 MEGHA ([facility]) Diastolic blood pressure 81 mm[Hg] 81 mm[Hg] MEGHA ([facility]) Body height 66 [in_i] 66 [in_i] MEGHA ([facility]) Body mass index (BMI) [Ratio] 53.6 kg/m2 53.6 k g/m2 MEGHA ([facility]) Systolic blood pressure 134 mm[Hg] 134 mm[Hg] A THENA ([facility]) Body weight 5312 [oz_av] 5312 [oz_av] MEGHA ([facility]) Diastolic blood pressure 81 mm[Hg] 81 mm[Hg] MEGHA ([facility]) Body height 66 [in_i] 66 [in_i] MEGHA ([facility]) Body mass index (BMI) [Ratio] 53.6 kg/m2 53.6 k g/m2 MEGHA ([facility]) Systolic blood pressure 134 mm[Hg] 134 mm[Hg] A THENA ([facility]) Body weight 5312 [oz_av] 5312 [oz_av] MEGHA ([facility]) Body weight 326.8 [lb_av] 326.8 [lb_av] eCW1 ([facility]) Body height 66 [in_i] 66 [in_i] eCW1 ([facility]) Body mass index (BMI) [Ratio] 52.74 kg/m2 52.74 kg/m2 eCW1 ([facility]) Systolic blood pressure 124 mm[Hg] 124 mm[Hg] e CW1 ([facility]) Diastolic blood pressure 76 mm[Hg] 76 mm[Hg] eCW1 ([facility]) Systolic blood pressure 136 mm[Hg] 136 mm[Hg] M RIK ([facility], [facility]) Body height 66 [in_i] 66 [in_i] MEDKAITLIN ([facility], [facility]) 5'6" Body mass index (BMI) [Ratio] 46.0 kg/m2 46.0 k g/m2 MEDENT ([facility], [facility]) Diastolic blood pressure 80 mm[Hg] 80 mm[Hg] MEDENT ([facility], [facility]) Heart rate 67 /min 67 /min MEDENT ([facility], [facility]) Respiratory rate 16 /min 16 /min MEDENT ( [facility]) Oxygen saturation in Arterial blood by Pulse oximetry 99 % 99 % MEDENT ([facility], [facility]) Body temperature 98.0 [degF] 98.0 [degF] MEDENT ([facility], [facility]) Body weight 285.00 [lb_av] 285.00 [lb_av] MEDEN T ([facility], [facility]) Patient Treatment Plan of Care Planned Activity Planned Date Details Description Data Source (s) Sprintec 28 0.25-35 MG-MCG 06/22/2020 12:00:00 AM EST eCW1 ([facility]) Sprintec 28 0.25-35 MG-MCG 06/22/2020 12:00:00 AM EST eCW1 ([facility]) Sulfamethoxazole 800 MG / Trimethoprim 160 MG Oral Tablet MEGHA ([facility]) Sertraline 100 MG Oral Tablet MEGHA ([facility]) quetiapine 25 MG Oral Tablet MEGHA ([facility]) Prednisone 20 MG Oral Tablet MEGHA ([facility]) Omeprazole 20 MG Delayed Release Oral Capsule MEGHA ([facility]) Mirtazapine 45 MG Oral Tablet MEGHA ([facility]) Magnesium Hydroxide 80 MG/ML Oral Suspension MEGHA ([facility]) ipratropium bromide 42 mcg (0.06 %) nasal spray MEGHA ([facility]) Ibuprofen 600 MG Oral Tablet MEGHA ([facility]) Acetaminophen 325 MG / Hydrocodone Bitartrate 5 MG Oral Tablet MEGHA ([facility]) POLYETHYLENE GLYCOL 3350 105 MG/ML / Pot assium Chloride 0.47712 MEQ/ML / Sodium Bicarbonate 0.017 MEQ/ML / Sodium Chloride 0.0479 MEQ/ML Oral Solution [GaviLyte-N] MEGHA ([facility]) fluticasone propionate 50 mcg/actuation nasal spray,suspension MEGHA ([facility]) Estarylla 0.25 mg-35 mcg tablet MEGHA ([facility]) Doxycycline Monohydrate 100 MG Oral Capsule MEGHA ([facility]) Dicyclomine Hydrochloride 20 MG Oral Tablet MEGHA ([facility]) chlorhexidine gluconate 1.2 MG/ML Mouthwash MEGHA ([facility]) benzonatate 100 MG Oral Capsule MEGHA ([facility]) Azithromycin 250 MG Oral Tablet MEGHA ([facility]) Sulfamethoxazole 800 MG / Trimethoprim 160 MG Oral Tablet MEGHA ([facility]) Sertraline 100 MG Oral Tablet MEGHA ([facility]) quetiapine 25 MG Oral Tablet MEGHA ([facility]) Prednisone 20 MG Oral Tablet MEGHA ([facility]) Omeprazole 20 MG Delayed Release Oral Capsule MEGHA ([facility]) Mirtazapine 45 MG Oral Tablet MEGHA ([facility]) Magnesium Hydroxide 80 MG/ML Oral Suspension MEGHA ([facility]) ipratropium bromide 42 mcg (0.06 %) nasal spray MEGHA ([facility]) Ibuprofen 600 MG Oral Tablet MEGHA ([facility]) Acetaminophen 325 MG / Hydrocodone Bitartrate 5 MG Oral Tablet MEGHA ([facility]) POLYETHYLENE GLYCOL 3350 105 MG/ML / Pot assium Chloride 0.83432 MEQ/ML / Sodium Bicarbonate 0.017 MEQ/ML / Sodium Chloride 0.0479 MEQ/ML Oral Solution [GaviLyte-N] MEGHA ([facility]) fluticasone propionate 50 mcg/actuation nasal spray,suspension MEGHA ([facility]) Estarylla 0.25 mg-35 mcg tablet MEGHA ([facility]) Doxycycline Monohydrate 100 MG Oral Capsule MEGHA ([facility]) Dicyclomine Hydrochloride 20 MG Oral Tablet MEGHA ([facility]) chlorhexidine gluconate 1.2 MG/ML Mouthwash MEGHA ([facility]) benzonatate 100 MG Oral Capsule MEGHA ([facility]) Azithromycin 250 MG Oral Tablet MEGHA ([facility]) Sulfamethoxazole 800 MG / Trimethoprim 160 MG Oral Tablet MEGHA ([facility]) quetiapine 25 MG Oral Tablet MEGHA ([facility]) Prednisone 20 MG Oral Tablet MEGHA ([facility]) Mirtazapine 45 MG Oral Tablet MEGHA ([facility]) Ibuprofen 600 MG Oral Tablet MEGHA ([facility]) Acetaminophen 325 MG / Hydrocodone Bitartrate 5 MG Oral Tablet MEGHA ([facility]) Doxycycline Monohydrate 100 MG Oral Capsule MEGHA ([facility]) benzonatate 100 MG Oral Capsule MEGHA ([facility]) Azithromycin 250 MG Oral Tablet MEGHA ([facility]) Prednisone 20 MG Oral Tablet MEGHA ([facility]) Prednisone 20 MG Oral Tablet MEGHA ([facility]) Prednisone 20 MG Oral Tablet MEGHA ([facility]) Prednisone 20 MG Oral Tablet MEGHA ([facility])
[2021-07-07] MEDS ORDERED: NAPR-837 PO (23:02)
[2021-07-07 23:08] VITALS: BP 129/66
--- NOTE | 2021-07-08 00:02 | REPVR ---
PROCEDURE INFORMATION: Exam: XR Left Knee Exam date and time: 07/07/2021 10:51 PM Age: 30 years old Clinical indication: Pain; Knee; Left; Additional info: Anterior post traumatic pain TECHNIQUE: Imaging protocol: XR Left knee. Views: 4 or more views. COMPARISON: CR Knee, complete 03/14/2018 7:40 PM FINDINGS: Bones/joints: No acute fracture. No dislocation. Joint space is preserved. Soft tissues: Diffuse prepatellar soft tissue swelling. IMPRESSION: No acute fracture. Electronically signed by: Zachery Do On 07/08/2021 00:02:09 AM
--- NOTE | 2021-07-08 00:09 | REPVR ---
PROCEDURE INFORMATION: Exam: XR Pelvis Exam date and time: 07/07/2021 10:51 PM Age: 30 years old Clinical indication: Pelvic pain; Additional info: Symphysis pubis pain R/O seperation TECHNIQUE: Imaging protocol: XR pelvis. Views: 1 or 2 view. COMPARISON: CT ABD PELVIS WITH CONTRAST 05/13/2020 4:41 AM FINDINGS: Limitations: Examination is limited by body habitus. Bones/joints: Subtle vertical linear lucency in the region of the left anterior acetabular column. No dislocation. No separation of the pubic symphysis. Soft tissues: Unremarkable. IMPRESSION: Subtle vertical linear lucency in the region of the left anterior acetabular column. Recommend dedicated views of the left hip. Nondisplaced fracture cannot be excluded. Electronically signed by: Zachery Do On 07/08/2021 00:09:15 AM
--- NOTE | 2021-07-08 10:41 | ED PDOC ---
Post-Departure Follow-Up valeriano el given xray of pelvis to call pt to come back for additional studies Ti Wahl MD Jul 08, 2021 10:41
== END 2021-07-07 23:09 | disposition home or self-care (01) ==
LOC: M ED 17:38
DX: S83.92XA Sprain of unspecified site of left knee, initial encounter (principal); R10.2 Pelvic and perineal pain; X58.XXXA Exposure to other specified factors, initial encounter; Y92.9 Unspecified place or not applicable; Y93.9 Activity, unspecified; Y99.9 Unspecified external cause status; G43.909 Migraine, unspecified, not intractable, without status migrainosus; J45.909 Unspecified asthma, uncomplicated; F41.9 Anxiety disorder, unspecified; F32.A Depression, unspecified; Z88.0 Allergy status to penicillin; Z91.030 Bee allergy status; Z91.040 Latex allergy status; Z79.899 Other long term (current) drug therapy

== ENCOUNTER → 2021-07-15 | Outpatient (CLI) | payer OTHER | LOC: M RAD 13:47 | PROVIDERS: ATTEND Pediatrics | DX: M25.552 Pain in left hip (principal) ==

== ENCOUNTER 2021-10-04 18:42 | Emergency (ER) | payer OTHER ==
[~2021-10-04] VITALS: Ht 167.6 cm; Wt 145.5 kg
[2021-10-04 19:08] VITALS: BP 145/79
[2021-10-04 19:57] LABS: HCG, SERUM QUALITATIVE NEGATIVE (NEGATIVE)
[2021-10-04 20:35] LABS: APPEARANCE, URINE HAZY (CLEAR); BACTERIA, URINE AUTO NEGATIVE (NEGATIVE); BILIRUBIN, URINE AUTO NEGATIVE (NEGATIVE); BLOOD, URINE BLOOD 3+ (NEGATIVE); COLOR, URINE YELLOW (YELLOW); GLUCOSE, URINE (UA) AUTO NEGATIVE (NEGATIVE); KETONE, URINE AUTO TRACE mg/dL (NEGATIVE); LEUKOCYTE ESTERASE, URINE AUTO TRACE (NEGATIVE); MUCUS, URINE SMALL (NEGATIVE); NITRITE, URINE AUTO NEGATIVE (NEGATIVE); PROTEIN, URINE AUTO NEGATIVE (NEGATIVE); RBC, URINE AUTO TNTC /HPF (0-3); SPECIFIC GRAVITY URINE AUTO 1.015 (1.002-1.035); SQUAMOUS EPITHELIAL CELL UR AU 1 /HPF (0-6); UROBILINOGEN, URINE AUTO 0.2 mg/dL (0.0-2.0); WBC, URINE AUTO 6 /HPF (0-3)
[2021-10-04 21:03] LABS: BASO # 0.1 10^3/uL (0.0-0.2); BASO % 0.6 % (0.0-1.0); EOS # 0.3 10^3/uL (0.0-0.5); EOS % 2.3 % (0.0-3.0); HEMATOCRIT 41.3 % (36.0-47.0); HEMOGLOBIN 13.6 g/dl (12.0-15.5); LYMPH # 4.4 10^3/uL (1.5-5.0); LYMPH % 35.7 % (24.0-44.0); MEAN CORPUSCULAR HEMOGLOBIN 31.3 pg (27.0-33.0); MEAN CORPUSCULAR HGB CONC 32.9 g/dl (32.0-36.5); MEAN CORPUSCULAR VOLUME 94.9 fl (80.0-96.0); MONO # 0.7 10^3/uL (0.0-0.8); MONO % 5.5 % (2.0-8.0); NEUTROPHILS # 6.9 10^3/uL (1.5-8.5); NEUTROPHILS % 55.6 % (36.0-66.0); PLATELET COUNT, AUTOMATED 334 10^3/uL (150-450); RED BLOOD COUNT 4.35 10^6/uL (4.00-5.40); WHITE BLOOD COUNT 12.4 10^3/uL (4.0-10.0)
[2021-10-04 21:04] LABS: ALBUMIN 3.6 GM/DL (3.2-5.2); ALT/SGPT 24 U/L (12-78); BILIRUBIN,DIRECT < 0.1 MG/DL (0.0-0.2); BILIRUBIN,TOTAL 0.2 MG/DL (0.2-1.0); BLOOD UREA NITROGEN 16 MG/DL (7-18); CALCIUM LEVEL 8.8 MG/DL (8.5-10.1); CARBON DIOXIDE LEVEL 25 MEQ/L (21-32); CHLORIDE LEVEL 108 MEQ/L (98-107); GLOMERULAR FILTRATION RATE > 60.0 (>60); GLUCOSE, FASTING 100 MG/DL (70-100); POTASSIUM SERUM 4.2 MEQ/L (3.5-5.1); SODIUM LEVEL 139 MEQ/L (136-145); TOTAL PROTEIN 6.9 GM/DL (6.4-8.2)
[2021-10-04 21:15] LABS: INR 0.9; PARTIAL THROMBOPLASTIN TIME 24.7 SECONDS (25.9-37.0); PROTHROMBIN TIME 12.5 SECONDS (12.7-14.5)
[2021-10-04 22:36] LABS: GC DNA AMPLIFICATION NEGATIVE (NEGATIVE)
== END 2021-10-04 23:58 | disposition home or self-care (01) ==
LOC: M ED 18:42
DX: N93.9 Abnormal uterine and vaginal bleeding, unspecified (principal); I10 Essential (primary) hypertension; G43.909 Migraine, unspecified, not intractable, without status migrainosus; J45.909 Unspecified asthma, uncomplicated; F41.8 Other specified anxiety disorders; F32.A Depression, unspecified; F17.200 Nicotine dependence, unspecified, uncomplicated; Z79.51 Long term (current) use of inhaled steroids; Z79.899 Other long term (current) drug therapy; Z98.84 Bariatric surgery status; Z88.0 Allergy status to penicillin; Z91.040 Latex allergy status

== ENCOUNTER → 2022-06-20 | Outpatient (REF) | payer OTHER | LOC: M PLALAB 09:37 | PROVIDERS: ATTEND Nurse Practitioner Family | DX: Z11.3 Encounter for screening for infections with a predominantly sexual mode of transmission (principal); Z53.9 Procedure and treatment not carried out, unspecified reason ==

== ENCOUNTER 2022-09-23 14:23 | Emergency (ER) | payer OTHER ==
[~2022-09-23] VITALS: Ht 170.2 cm; Wt 145.4 kg
[2022-09-23] MEDS ORDERED: CLIN-250 (14:43)
[2022-09-23] MEDS ORDERED: KETOROLAC 60MG 2ML VIAL IM ONE (17:10)
[2022-09-23 17:34] VITALS: BP 126/87
== END 2022-09-23 17:36 | disposition home or self-care (01) ==
LOC: M ED 14:23
DX: S83.92XA Sprain of unspecified site of left knee, initial encounter (principal); S90.931A Unspecified superficial injury of right great toe, initial encounter; W01.0XXA Fall on same level from slipping, tripping and stumbling without subsequent striking against object, initial encounter; G43.909 Migraine, unspecified, not intractable, without status migrainosus; J45.909 Unspecified asthma, uncomplicated; F41.9 Anxiety disorder, unspecified; Z98.84 Bariatric surgery status; Z88.0 Allergy status to penicillin; Z91.030 Bee allergy status; Z91.040 Latex allergy status; Z79.1 Long term (current) use of non-steroidal anti-inflammatories (NSAID); Z79.2 Long term (current) use of antibiotics
CPT/HCPCS: 73564; 73660; 96372; 99284; J1885

== ENCOUNTER 2023-03-01 11:59 | Emergency (ER) | payer OTHER ==
[~2023-03-01] VITALS: Ht 170.2 cm; Wt 145.4 kg
[~2023-03-01 11:59] MED LIST changes: +CLIN-250
[2023-03-01 12:00] VITALS: BP 165/76; TEMP 97.2; O2SAT 100
== END 2023-03-01 14:32 | disposition home or self-care (01) ==
LOC: M ED 11:59
DX: S83.92XA Sprain of unspecified site of left knee, initial encounter (principal); S93.402A Sprain of unspecified ligament of left ankle, initial encounter; E03.9 Hypothyroidism, unspecified; F17.200 Nicotine dependence, unspecified, uncomplicated; Z98.84 Bariatric surgery status; Z88.0 Allergy status to penicillin; Z91.030 Bee allergy status; Z91.048 Other nonmedicinal substance allergy status; Z91.040 Latex allergy status

== ENCOUNTER → 2023-06-12 | Outpatient (CLI) | payer OTHER ==
[~2023-06-12] MED LIST changes: +PROHANCE 279.3MG/ML 15ML VIAL As Ordered ONE; +PROHANCE 279.3MG/ML 5ML VIAL As Ordered ONE
== END ==
LOC: M RAD 12:07
PROVIDERS: ATTEND Pediatrics
DX: R51.9 Headache, unspecified (principal)
CPT/HCPCS: 70544; 70553; A9576

== ENCOUNTER → 2023-09-15 | Outpatient (CLI) | payer OTHER ==
[~2023-09-15] MED LIST changes: -PROHANCE 279.3MG/ML 15ML VIAL As Ordered ONE; -PROHANCE 279.3MG/ML 5ML VIAL As Ordered ONE
[2023-09-15 15:58] LABS: HEMATOCRIT 37.1 % (36.0-47.0); HEMOGLOBIN 12.5 g/dl (12.0-15.5); MEAN CORPUSCULAR HEMOGLOBIN 31.5 pg (27.0-33.0); MEAN CORPUSCULAR HGB CONC 33.7 g/dl (32.0-36.5); MEAN CORPUSCULAR VOLUME 93.5 fl (80.0-96.0); PLATELET COUNT, AUTOMATED 294 10^3/uL (150-450); RED BLOOD COUNT 3.97 10^6/uL (4.00-5.40); WHITE BLOOD COUNT 9.5 10^3/uL (4.0-10.0)
[2023-09-15 16:13] LABS: TOTAL PROTEIN,RANDOM URINE 19.5 MG/DL (0.0-14.0); URIC ACID 5.3 MG/DL (3.1-7.8)
[2023-09-15 16:15] LABS: LDH LACTATE DEHYDROGENASE 124 U/L (120-246)
[2023-09-15 16:16] LABS: ALT/SGPT 10 U/L (7.0-40); AST/SGOT < 8 U/L (<34); BILIRUBIN,TOTAL < 0.2 MG/DL (0.3-1.2); CREATININE FOR GFR 0.47 MG/DL (0.55-1.30); GLOMERULAR FILTRATION RATE > 60.0 (>60)
[2023-09-15 16:17] LABS: FOLATE 16.56 NG/ML (>5.4)
[2023-09-15 16:18] LABS: CREATININE,RANDOM URINE 132.7 MG/DL; VITAMIN B12 LEVEL 393 PG/ML (211-911)
[2023-09-15 16:49] LABS: HIV 1&2 SCREEN NEGATIVE (NEGATIVE)
[2023-09-15 16:58] LABS: HEPATITIS C VIRUS ABY INDEX < 0.02 INDEX (<0.8)
[2023-09-15 17:17] LABS: CHLAMYDIA DNA AMPLIFICATION NEGATIVE (NEGATIVE); GC DNA AMPLIFICATION NEGATIVE (NEGATIVE)
== END ==
LOC: M PLALAB 10:33
PROVIDERS: ATTEND Advanced Practice Midwife
DX: Z34.81 Encounter for supervision of other normal pregnancy, first trimester (principal); Z3A.00 Weeks of gestation of pregnancy not specified

== ENCOUNTER → 2023-11-06 | Outpatient (CLI) | payer OTHER | LOC: M WHC 13:58 | PROVIDERS: ATTEND Specialist | DX: Z34.82 Encounter for supervision of other normal pregnancy, second trimester (principal) ==

== ENCOUNTER → 2023-12-10 | Outpatient (CLI) | payer OTHER ==
[~2023-12-10] MED LIST changes: +DOXY-323 PO; -DOXY-443 PO
== END ==
LOC: M WHC 09:31
PROVIDERS: ATTEND Specialist
DX: Z34.82 Encounter for supervision of other normal pregnancy, second trimester (principal); Z3A.24 24 weeks gestation of pregnancy

== ENCOUNTER → 2023-12-24 | Outpatient (CLI) | payer OTHER ==
[2023-12-24 10:00] LABS: HEMOGLOBIN 11.9 g/dl (12.0-15.5); MEAN CORPUSCULAR HEMOGLOBIN 30.7 pg (27.0-33.0); MEAN CORPUSCULAR VOLUME 90.2 fl (80.0-96.0); PLATELET COUNT, AUTOMATED 306 10^3/uL (150-450); RED BLOOD COUNT 3.88 10^6/uL (4.00-5.40); WHITE BLOOD COUNT 13.2 10^3/uL (4.0-10.0)
[2023-12-24 10:17] LABS: HEMOGLOBIN A1c 4.9 % (4.0-6.0)
[2023-12-24 12:49] LABS: GC DNA AMPLIFICATION NEGATIVE (NEGATIVE)
== END ==
LOC: M PLALAB 08:48
PROVIDERS: ATTEND Obstetrics & Gynecology
DX: O99.842 Bariatric surgery status complicating pregnancy, second trimester (principal); Z3A.00 Weeks of gestation of pregnancy not specified

== ENCOUNTER → 2024-01-18 | Outpatient (CLI) | payer OTHER ==
[~2024-01-18] MED LIST changes: +METR-265 PO
== END ==
LOC: M WHC 10:13
PROVIDERS: ATTEND Advanced Practice Midwife
DX: K90.9 Intestinal malabsorption, unspecified (principal); Z34.93 Encounter for supervision of normal pregnancy, unspecified, third trimester; Z3A.00 Weeks of gestation of pregnancy not specified; Z53.9 Procedure and treatment not carried out, unspecified reason

== ENCOUNTER 2024-01-30 20:51 | Outpatient (CLI) | payer OTHER ==
[~2024-01-30] VITALS: Ht 170.2 cm; Wt 130.2 kg
[2024-01-30 21:07] VITALS: BP 128/67
[2024-01-30 22:06] LABS: HEMATOCRIT 35.4 % (36.0-47.0); HEMOGLOBIN 11.9 g/dl (12.0-15.5); MEAN CORPUSCULAR HEMOGLOBIN 30.6 pg (27.0-33.0); MEAN CORPUSCULAR HGB CONC 33.6 g/dl (32.0-36.5); PLATELET COUNT, AUTOMATED 239 10^3/uL (150-450); RED BLOOD COUNT 3.89 10^6/uL (4.00-5.40); WHITE BLOOD COUNT 7.2 10^3/uL (4.0-10.0)
[2024-01-30] MEDS: NITROFURANTOIN (MACROBID) 100 MG CAP PO ONE (22:14)
[2024-01-30] MEDS: ACETAMINOPHEN 500 MG TAB PO ONE (22:14)
[2024-01-30] MEDS: CYCLOBENZAPRINE 10MG TABLET PO ONE (22:19)
[2024-01-30 22:33] LABS: ALBUMIN 2.7 G/DL (3.2-5.2); ALKALINE PHOSPHATASE 84 U/L (46-116); ALT/SGPT 48 U/L (7.0-40); AST/SGOT 54 U/L (<34); BILIRUBIN,TOTAL < 0.2 MG/DL (0.3-1.2); BLOOD UREA NITROGEN 6 MG/DL (9-23); CALCIUM LEVEL 9.1 MG/DL (8.5-10.1); CARBON DIOXIDE LEVEL 22 MMOL/L (20-31); CHLORIDE LEVEL 107 MMOL/L (98-107); CREATININE FOR GFR 0.58 MG/DL (0.55-1.30); GLOMERULAR FILTRATION RATE > 60.0 (>60); GLUCOSE, FASTING 105 MG/DL (60-100); POTASSIUM SERUM 4.3 MMOL/L (3.5-5.1); SODIUM LEVEL 136 MMOL/L (136-145)
[2024-01-30 22:42] VITALS: BP 139/76
== END 2024-01-30 22:43 | disposition home or self-care (01) ==
LOC: M LDO 20:51
PROVIDERS: ATTEND Obstetrics & Gynecology
DX: O26.893 Other specified pregnancy related conditions, third trimester (principal); O99.843 Bariatric surgery status complicating pregnancy, third trimester; M54.50 Low back pain, unspecified; Z3A.31 31 weeks gestation of pregnancy; Z87.59 Personal history of other complications of pregnancy, childbirth and the puerperium
CPT/HCPCS: 36415; 59025; 80053; 81001; 85027; 87086; G0463

== ENCOUNTER → 2024-02-26 | Outpatient (CLI) | payer OTHER | LOC: M WHC 14:09 | PROVIDERS: ATTEND Advanced Practice Midwife | DX: Z34.93 Encounter for supervision of normal pregnancy, unspecified, third trimester (principal); K90.9 Intestinal malabsorption, unspecified; Z3A.35 35 weeks gestation of pregnancy ==

== ENCOUNTER → 2024-03-02 | Outpatient (REF) | payer OTHER | LOC: M PLALAB 10:53 | PROVIDERS: ATTEND Obstetrics & Gynecology | DX: Z36.85 Encounter for antenatal screening for Streptococcus B (principal); Z3A.35 35 weeks gestation of pregnancy ==

== ENCOUNTER 2024-03-08 19:52 | Outpatient (CLI) | payer OTHER ==
[~2024-03-08] VITALS: Ht 170.2 cm; Wt 129.7 kg
[2024-03-08 20:07] VITALS: BP 135/60
== END 2024-03-08 21:40 | disposition home or self-care (01) ==
LOC: M LDO 19:52
PROVIDERS: ATTEND Obstetrics & Gynecology
DX: O36.8230 Fetal anemia and thrombocytopenia, third trimester, not applicable or unspecified (principal); O24.419 Gestational diabetes mellitus in pregnancy, unspecified control; O99.843 Bariatric surgery status complicating pregnancy, third trimester; O26.23 Pregnancy care for patient with recurrent pregnancy loss, third trimester; O99.333 Smoking (tobacco) complicating pregnancy, third trimester; O99.343 Other mental disorders complicating pregnancy, third trimester; F17.218 Nicotine dependence, cigarettes, with other nicotine-induced disorders; F41.8 Other specified anxiety disorders; F31.9 Bipolar disorder, unspecified; F43.10 Post-traumatic stress disorder, unspecified; Z3A.36 36 weeks gestation of pregnancy
CPT/HCPCS: 59025; G0463

== ENCOUNTER 2024-03-24 13:27 | Inpatient (IN) | payer OTHER ==
[2024-03-24] VITALS (24 sets, daily range): BP systolic 61–145; BP diastolic 45–86
[~2024-03-24] VITALS: Ht 170.2 cm; Wt 130.5 kg
[2024-03-24] MEDS ORDERED: HOME MED LIST COMPLETE! XX SCH (13:45)
[2024-03-24] MEDS ORDERED: TRANEXAMIC ACID INJection 1,000 MG in NS 100 ML IV PRN (14:45)
[2024-03-24] MEDS ORDERED: CARBOPROST TROMETHAMINE 250 MCG/ML AMP IM PRN (14:45)
[2024-03-24] MEDS ORDERED: METHYLERGONOVINE MALEATE 0.2MG/ML 1ML VIAL IM PRN (14:45)
[2024-03-24] MEDS ORDERED: OXYTOCIN DRIP 30 UNITS in IV 1 EA IV PRN (14:45)
[2024-03-24 15:47] LABS: HEMATOCRIT 35.4 % (36.0-47.0); MEAN CORPUSCULAR HGB CONC 33.9 g/dl (32.0-36.5); MEAN CORPUSCULAR VOLUME 88.5 fl (80.0-96.0); PLATELET COUNT, AUTOMATED 322 10^3/uL (150-450); WHITE BLOOD COUNT 10.5 10^3/uL (4.0-10.0)
[2024-03-24 16:11] LABS: URIC ACID 6.3 MG/DL (3.1-7.8)
[2024-03-24] MEDS: LR 1,000 ML IV SCH (16:11)
[2024-03-24] MEDS: OXYTOCIN DRIP 30 UNITS in IV 1 EA IV SCH (16:12)
[2024-03-24 16:13] LABS: LDH LACTATE DEHYDROGENASE 133 U/L (120-246)
[2024-03-24 16:14] LABS: ALT/SGPT 11 U/L (7.0-40); AST/SGOT 12 U/L (<34); BILIRUBIN,TOTAL 0.3 MG/DL (0.3-1.2); CREATININE FOR GFR 0.46 MG/DL (0.55-1.30); GLOMERULAR FILTRATION RATE > 60.0 (>60)
[2024-03-24 17:00] LABS: HEPATITIS C VIRUS ABY INDEX < 0.02 INDEX (<0.8)
[2024-03-24] MEDS ORDERED: ePHEDrine SULFATE 25 MG/5 ML(5MG/ML) SYRINGE IVP PRN (21:15)
[2024-03-24] MEDS ORDERED: NALOXONE INJ 0.4MG/1ML VIAL IV PRN (21:15)
[2024-03-24] MEDS ORDERED: LR 500 ML IV PRN (21:15)
[2024-03-24] MEDS ORDERED: diphenhydrAMINE 50MG/ML VIAL IV PRN (21:15)
[2024-03-24] MEDS ORDERED: EPIDURAL/PCA KEYS XX PRN (21:15)
[2024-03-24] MEDS: LACTATED RINGER'S 1000 ML IV PRN (21:31)
[2024-03-24] MEDS: FENTANYL/ROPIVACAINE/NACL BAG 100 ML EPIDURAL SCH (22:52)
[2024-03-25] VITALS (18 sets, daily range): BP systolic 109–133; BP diastolic 53–84; O2SAT 96–98
[2024-03-25] MEDS: CALCIUM CARBONATE 500 MG CHEW U/D PO ONE (02:35)
[2024-03-25] MEDS: ONDANSETRON 4MG 2ML VIAL IV PRN (04:29)
[2024-03-25] MEDS ORDERED: RHO(D) IMMUNE GLOBULIN/MALTOSE 500MCG(2500IU)/2.2ML VIAL (WINRHO) IM SCH (07:55)
[2024-03-25] MEDS ORDERED: METHYLERGONOVINE MALEATE 0.2 MG TAB PO PRN (07:55)
[2024-03-25] MEDS ORDERED: DOCUSATE SODIUM 100MG CAPSULE PO PRN (07:55)
[2024-03-25] MEDS: PRENATAL VITAMINS CHEWABLE TABLET PO SCH (09:28)
[2024-03-25] MEDS: ACETAMINOPHEN 500 MG TAB PO PRN (09:29)
[2024-03-25] MEDS: DIBUCAINE 1% OINTMENT 30GM TOP PRN (12:21)
[2024-03-26 06:17] VITALS: BP 126/68; O2SAT 96
[2024-03-26 06:36] LABS: HEMATOCRIT 32.8 % (36.0-47.0); HEMOGLOBIN 11.3 g/dl (12.0-15.5); MEAN CORPUSCULAR HEMOGLOBIN 31.2 pg (27.0-33.0); MEAN CORPUSCULAR HGB CONC 34.5 g/dl (32.0-36.5); MEAN CORPUSCULAR VOLUME 90.6 fl (80.0-96.0); PLATELET COUNT, AUTOMATED 296 10^3/uL (150-450); RED BLOOD COUNT 3.62 10^6/uL (4.00-5.40); WHITE BLOOD COUNT 12.6 10^3/uL (4.0-10.0)
[2024-03-26] MEDS ORDERED: PRENTAB9 PO (11:48)
[2024-03-26] MEDS ORDERED: HOME MED LIST COMPLETE! XX SCH (11:50)
[2024-03-26] MEDS: IBUPROFEN 600MG TAB PO PRN (11:54)
[2024-03-27] MEDS ORDERED: MEASLES,MUMPS,RUBELLA VACCINE INJ (MMR-II) SC.IMMUN ONE (09:00)
== END 2024-03-26 18:10 | disposition home or self-care (01) | DRG 560 ==
LOC: M LDI 13:27 → M OBS 03-25 11:58
PROVIDERS: ADMIT Obstetrics & Gynecology; ATTEND Obstetrics & Gynecology
PROC: 3E033VJ Introduction of Other Hormone into Peripheral Vein, Percutaneous Approach (ICD-10-PCS; 2024-03-24)
PROC: 10E0XZZ Delivery of Products of Conception, External Approach (ICD-10-PCS; principal; 2024-03-25)
PROC: 0KQM0ZZ Repair Perineum Muscle, Open Approach (ICD-10-PCS; 2024-03-25)
PROC: 10907ZC Drainage of Amniotic Fluid, Therapeutic from Products of Conception, Via Natural or Artificial Opening (ICD-10-PCS; 2024-03-25)
DX: O24.419 Gestational diabetes mellitus in pregnancy, unspecified control (principal); Z68.42 Body mass index [BMI] 45.0-49.9, adult; E66.9 Obesity, unspecified; Z37.0 Single live birth; Z3A.39 39 weeks gestation of pregnancy; O70.1 Second degree perineal laceration during delivery; O99.214 Obesity complicating childbirth; Z88.0 Allergy status to penicillin; Z91.040 Latex allergy status; Z91.030 Bee allergy status

== ENCOUNTER 2024-07-08 11:10 | Day surgery (SDC) | payer OTHER ==
[~2024-07-08] VITALS: Ht 152.4 cm; Wt 128.8 kg
[~2024-07-08 11:10] MED LIST changes: -DOXY-323 PO; +DOXY-441 PO; +PRENTAB9 PO
[2024-07-08] MEDS ORDERED: NS 1,000 ML IV SCH ×2 (11:35→14:50)
[2024-07-08] MEDS ORDERED: ROCURONIUM BROMIDE 50MG/5ML VIAL As Ordered ONE (11:57)
[2024-07-08] MEDS ORDERED: fentaNYL 100 MCG/2 ML INJECTION As Ordered ONE (11:57)
[2024-07-08] MEDS ORDERED: LIDOCAINE 2% 100MG/5ML SDV (FOR ANES.) As Ordered ONE (11:57)
[2024-07-08] MEDS ORDERED: propofoL 200 MG/20 ML VIAL As Ordered ONE (11:57)
[2024-07-08] MEDS ORDERED: SUGAMMADEX SODIUM 500 MG/5 ML VIAL (BRIDION) As Ordered ONE (11:57)
[2024-07-08] MEDS ORDERED: ONDANSETRON 4MG 2ML VIAL As Ordered ONE (11:57)
[2024-07-08] MEDS ORDERED: KETOROLAC 60MG 2ML VIAL As Ordered ONE (11:57)
[2024-07-08] MEDS ORDERED: MIDAZOLAM INJ 2MG/2ML VIAL As Ordered ONE (11:57)
[2024-07-08 12:59] LABS: HEMATOCRIT 40.3 % (36.0-47.0); HEMOGLOBIN 12.9 g/dl (12.0-15.5); MEAN CORPUSCULAR HEMOGLOBIN 28.7 pg (27.0-33.0); MEAN CORPUSCULAR VOLUME 89.6 fl (80.0-96.0); PLATELET COUNT, AUTOMATED 430 10^3/uL (150-450); WHITE BLOOD COUNT 9.7 10^3/uL (4.0-10.0)
[2024-07-08] MEDS ORDERED: ACETAMINOPHEN 1000MG/100ML IV BAG As Ordered ONE (14:10)
[2024-07-08] MEDS ORDERED: ONDANSETRON 4MG 2ML VIAL IV PRN ×2 (14:50→15:00)
[2024-07-08] MEDS ORDERED: HYDROMORPHONE HCL 0.5 MG/ 0.5 ML SYRINGE IV PRN (14:50)
[2024-07-08] MEDS ORDERED: oxyCODONE 5MG TAB PO PRN (14:50)
[2024-07-08] MEDS ORDERED: fentaNYL 100 MCG/2 ML INJECTION IV PRN (14:50)
[2024-07-08] MEDS ORDERED: METOCLOPRAMIDE INJ 10MG/2ML VIAL IV PRN (15:00)
[2024-07-08] MEDS ORDERED: MORPHINE 2 MG/ML 1ML VIAL IV PRN (15:00)
[2024-07-08 15:30] VITALS: BP 131/4; TEMP 97.6; O2SAT 99
== END 2024-07-08 16:00 | disposition home or self-care (01) ==
LOC: M SDC 11:10
PROVIDERS: ATTEND Obstetrics & Gynecology
DX: Z30.2 Encounter for sterilization (principal); N83.8 Other noninflammatory disorders of ovary, fallopian tube and broad ligament; K21.9 Gastro-esophageal reflux disease without esophagitis; Z98.84 Bariatric surgery status; F17.210 Nicotine dependence, cigarettes, uncomplicated; Z88.0 Allergy status to penicillin; Z91.040 Latex allergy status; Z91.030 Bee allergy status
CPT/HCPCS: 36415; 58661; 81025; 85027; 86850; 86900; 86901; 88302; J0131; J0665; J1100; J1885; J2250; J2405; J3010

== ENCOUNTER → 2025-03-02 | Outpatient (CLI) | payer MEDICAID, OTHER ==
[~2025-03-02] MED LIST changes: +ACET-1515 PO; -ACET650T15 PO; -AMBI5TAB PO; +ZOLP-532 PO
== END ==
LOC: M RAD 16:57
PROVIDERS: ATTEND Student in an Organized Health Care Education/Training Program
DX: M77.32 Calcaneal spur, left foot (principal); M79.672 Pain in left foot

== ENCOUNTER → 2025-04-19 | Outpatient (CLI) | payer OTHER | LOC: M WUC 12:11 | PROVIDERS: ATTEND Nurse Practitioner Family | DX: M25.562 Pain in left knee (principal) ==